=== PATIENT | female | born 1960 | race Caucasian/White ===

== ENCOUNTER 2020-09-06 09:43 | Outpatient (REF) | payer OTHER, SELFPAY ==
[2020-09-11 15:57] LABS: HPV mRNA E6/E7 Not Detected (Not Detected)
== END 2020-09-06 09:44 | disposition home or self-care (01) ==
LOC: HO.LAB 09:43
PROVIDERS: PCP Internal Medicine; Referring Provider Internal Medicine; Visit Provider Obstetrics & Gynecology
DX: Z01.419 Encounter for gynecological examination (general) (routine) without abnormal findings (principal); N95.2 Postmenopausal atrophic vaginitis
CPT/HCPCS: 87624; 88142

== ENCOUNTER → 2020-09-18 14:36 | Outpatient (BNVA) | payer OTHER, SELFPAY | PROVIDERS: Visit Provider Obstetrics & Gynecology | DX: Z76.89 Persons encountering health services in other specified circumstances (principal) ==

== ENCOUNTER 2021-03-10 12:07 | Outpatient (REF) | payer OTHER, SELFPAY ==
--- NOTE | ~2021-03-10 | XR_ITS ---
EXAMINATION: XR FOOT, RIGHT CLINICAL INFORMATION: Close nondisplaced fracture phalanx of great great toe COMPARISON: None TECHNIQUE: AP, lateral, and oblique views of the right foot. FINDINGS: The bones and soft tissues are normal. No fracture. Alignment is anatomic. Joint spaces are maintained. XR/XR foot RT min 3V IMPRESSION: Unremarkable right foot exam.
== END 2021-03-10 12:08 | disposition home or self-care (01) ==
LOC: HO.XRAY 12:07
PROVIDERS: PCP Internal Medicine; Visit Provider Internal Medicine
DX: S92.404A Nondisplaced unspecified fracture of right great toe, initial encounter for closed fracture (principal); X58.XXXA Exposure to other specified factors, initial encounter; Y93.9 Activity, unspecified; Y92.9 Unspecified place or not applicable; Y99.8 Other external cause status
CPT/HCPCS: 73630

== ENCOUNTER 2021-05-27 10:30 | Outpatient (REF) | payer OTHER, SELFPAY ==
[2021-05-27 10:34] LABS: MANUAL DIFF FLAG NO
[2021-05-27 11:19] LABS: Basophils Absolute Auto 0.1 X10*3/uL (0.0-0.2); Basophils Percent Auto 0.6 % (0-2); Eosinophils Absolute Auto 0.1 X10*3/uL (0.0-0.4); Eosinophils Percent Auto 1.7 % (0-4); Hematocrit 45.4 % (37-47); Imm Gran Abs Auto 0.02 X10*3/uL (0.00-0.03); Imm Gran Pct Auto 0.2 % (0.0-0.4); Lymphocytes Absolute Auto 1.7 X10*3/uL (1.2-4.9); Lymphocytes Percent Auto 20.1 % (20-40); Mean Corpuscular Hemoglobin 29.6 pg (27.0-33.0); Mean Corpuscular Volume 89.7 fL (80-98); Mean Platelet Volume 9.9 fL (9.4-12.3); Monocytes Absolute Auto 0.7 X10*3/uL (0.1-1.2); Monocytes Percent Auto 7.7 % (2-11); Neutrophils Absolute Auto 5.9 X10*3/uL (2.0-8.3); Neutrophils Percent Auto 69.7 % (45-73); Platelet Count 231 X10*3/uL (160-400); Red Blood Count 5.06 X10*6/uL (4.20-5.50); Red Cell Distribution Width 13.1 % (11.0-16.0); White Blood Count 8.5 X10*3/uL (4.8-10.8)
[2021-05-27 11:33] LABS: Glucose Urine UA NEG (NEG); Leukocyte Esterase Urine NEG (NEG); Nitrite Urine NEG (NEG); Urine Blood NEG (NEG); Urine Ketones NEG (NEG); Urine Protein NEG (NEG-TRACE)
[2021-05-27 11:46] LABS: Estimated Average Glucose 114 mg/dL; Hemoglobin A1c % 5.6 %
[2021-05-27 11:51] LABS: Appearance Urine CLEAR; Color Urine YELLOW
[2021-05-27 12:14] LABS: Alanine Aminotransferase 13 U/L (0-31); Albumin Level 4.5 g/dL (3.5-5.0); Alkaline Phosphatase 97 U/L (39-117); Anion Gap 13 (12-20); Aspartate Amino Transferase 21 U/L (5-31); Bilirubin Total 0.7 mg/dL (0.0-1.0); Blood Urea Nitrogen 13 mg/dL (9-16); Calcium 9.9 mg/dL (8.4-10.2); Carbon Dioxide 28 mmol/L (22-29); Chloride 108 mmol/L (96-108); Cholesterol 260 mg/dL; Estimated Glomerular Filt Rate 54; Glucose Fasting 94 mg/dL (60-99); HDL Cholesterol 79 mg/dL; LDL Cholesterol Calculated 166 mg/dl; Potassium 4.4 mmol/L (3.3-5.1); Sodium 145 mmol/L (135-145); Total Protein 7.3 g/dL (6.5-8.0); Triglycerides 75 mg/dL
== END 2021-05-27 10:31 | disposition home or self-care (01) ==
LOC: HO.LNP 10:30
PROVIDERS: Visit Provider Internal Medicine
DX: Z00.00 Encounter for general adult medical examination without abnormal findings (principal); I10 Essential (primary) hypertension; E05.00 Thyrotoxicosis with diffuse goiter without thyrotoxic crisis or storm; E78.2 Mixed hyperlipidemia; R73.09 Other abnormal glucose
CPT/HCPCS: 80053; 80061; 81003; 83036; 85025

== ENCOUNTER → 2021-09-23 10:00 | Outpatient (BNVA) | payer OTHER, SELFPAY | PROVIDERS: PCP Internal Medicine; Visit Provider Obstetrics & Gynecology ==

== ENCOUNTER 2022-06-29 11:28 | Outpatient (REF) | payer OTHER, SELFPAY ==
[2022-06-29 11:33] LABS: MANUAL DIFF FLAG NO
[2022-06-29 12:18] LABS: Basophils Absolute Auto 0.1 X10*3/uL (0.0-0.2); Basophils Percent Auto 0.7 % (0-2); Eosinophils Absolute Auto 0.2 X10*3/uL (0.0-0.4); Eosinophils Percent Auto 1.9 % (0-4); Hematocrit 45.9 % (37.0-47.0); Imm Gran Abs Auto 0.02 X10*3/uL (0.00-0.03); Imm Gran Pct Auto 0.2 % (0.0-0.4); Lymphocytes Absolute Auto 1.7 X10*3/uL (1.2-4.9); Lymphocytes Percent Auto 19.9 % (20-40); Mean Corpuscular HGB Conc 32.7 g/dl (31.0-35.0); Mean Corpuscular Hemoglobin 29.2 pg (27.0-33.0); Mean Corpuscular Volume 89.3 fL (80.0-98.0); Mean Platelet Volume 9.7 fL (9.4-12.3); Monocytes Absolute Auto 0.6 X10*3/uL (0.1-1.2); Monocytes Percent Auto 7.1 % (2-11); Neutrophils Percent Auto 70.2 % (45-73); Platelet Count 220 X10*3/uL (160-400); Red Blood Count 5.14 X10*6/uL (4.20-5.50); Red Cell Distribution Width 12.7 % (11.0-16.0); White Blood Count 8.6 X10*3/uL (4.8-10.8)
[2022-06-29 12:21] LABS: Appearance Urine Clear; Color Urine Yellow; Glucose Urine UA Negative (Negative); Leukocyte Esterase Urine Negative (Negative); Nitrite Urine Negative (Negative); PH 6.5 (5.0-9.0); Specific Gravity - Urine 1.015 (1.005-1.025); Urine Blood Negative (Negative); Urine Ketones Negative (Negative); Urine Protein Negative (Neg-Trace)
[2022-06-29 12:28] LABS: Bacteria Urine None Seen (None Seen); Hyaline Casts Urine 0-2 /LPF (0-2); RBC Urine 0-2 /HPF (0-2); Squamous Epithelial Cell Urine 0-2 /HPF (0-2); WBC Urine 0-5 /HPF (0-5)
[2022-06-29 12:33] LABS: Alanine Aminotransferase 17 U/L (0-31); Albumin Level 4.4 g/dL (3.5-5.0); Alkaline Phosphatase 77 U/L (39-117); Anion Gap 16 (12-20); Aspartate Amino Transferase 23 U/L (5-31); Bilirubin Total 0.6 mg/dL (0.0-1.0); Blood Urea Nitrogen 14 mg/dL (9-16); Calcium 9.4 mg/dL (8.4-10.2); Carbon Dioxide 26 mmol/L (22-29); Chloride 106 mmol/L (96-108); Cholesterol 252 mg/dL; Estimated Glomerular Filt Rate > 60; Glucose Fasting 92 mg/dL (60-99); HDL Cholesterol 77 mg/dL; LDL Cholesterol Calculated 154 mg/dl; Potassium 3.8 mmol/L (3.3-5.1); Sodium 144 mmol/L (135-145); Total Protein 7.4 g/dL (6.5-8.0); Triglycerides 108 mg/dL
[2022-06-29 12:34] LABS: Estimated Average Glucose 111 mg/dL; Hemoglobin A1c % 5.5 %
[2022-06-29 12:44] LABS: Creatinine Urine 101.09 mg/dL; Microalbum/Creatinine Ratio Ur 19.7 ug/mg cr
[2022-06-29 12:56] LABS: TSH reflex Free T4 1.33 uIU/mL (0.32-4.0)
== END 2022-06-29 11:29 | disposition home or self-care (01) ==
LOC: HO.LNP 11:28
PROVIDERS: Visit Provider Internal Medicine
DX: Z00.00 Encounter for general adult medical examination without abnormal findings (principal); I10 Essential (primary) hypertension; E05.00 Thyrotoxicosis with diffuse goiter without thyrotoxic crisis or storm; E78.2 Mixed hyperlipidemia; R73.9 Hyperglycemia, unspecified
CPT/HCPCS: 80053; 80061; 81001; 82043; 83036; 84443; 85025

== ENCOUNTER 2022-10-02 10:16 | Outpatient (REF) | payer OTHER, SELFPAY ==
[2022-10-02 14:22] LABS: MANUAL DIFF FLAG NO
[2022-10-02 14:41] LABS: Basophils Absolute Auto 0.1 X10*3/uL (0.0-0.2); Basophils Percent Auto 0.7 % (0-2); Eosinophils Absolute Auto 0.1 X10*3/uL (0.0-0.4); Eosinophils Percent Auto 1.6 % (0-4); Hematocrit 45.2 % (37.0-47.0); Imm Gran Abs Auto 0.01 X10*3/uL (0.00-0.03); Imm Gran Pct Auto 0.1 % (0.0-0.4); Lymphocytes Percent Auto 28.5 % (20-40); Mean Corpuscular HGB Conc 33.2 g/dl (31.0-35.0); Mean Corpuscular Hemoglobin 29.7 pg (27.0-33.0); Mean Corpuscular Volume 89.5 fL (80.0-98.0); Mean Platelet Volume 9.9 fL (9.4-12.3); Monocytes Absolute Auto 0.7 X10*3/uL (0.1-1.2); Monocytes Percent Auto 9.4 % (2-11); Neutrophils Absolute Auto 4.2 x10*3/uL (2.0-8.3); Neutrophils Percent Auto 59.7 % (45-73); Platelet Count 245 X10*3/uL (160-400); Red Blood Count 5.05 X10*6/uL (4.20-5.50); Red Cell Distribution Width 12.8 % (11.0-16.0); White Blood Count 7.1 X10*3/uL (4.8-10.8)
[2022-10-02 15:11] LABS: Alanine Aminotransferase 14 U/L (0-31); Albumin Level 4.2 g/dL (3.5-5.0); Alkaline Phosphatase 88 U/L (39-117); Aspartate Amino Transferase 19 U/L (5-31); Bilirubin Direct < 0.2 mg/dL (0.0-0.5); Bilirubin Total 0.4 mg/dL (0.0-1.0); Thyroid Stimulating Hormone 0.68 uIU/mL (0.32-4.0); Total Protein 6.8 g/dL (6.5-8.0)
[2022-10-04 06:39] LABS: Triiodothyronine T3 Free 3.4 pg/mL (2.3-4.2)
[2022-10-07 14:48] LABS: Thyrotropin Receptor Antibody <1.00 IU/L (<=2.00)
== END 2022-10-02 10:17 | disposition home or self-care (01) ==
LOC: CF 10:16
PROVIDERS: PCP Internal Medicine; Visit Provider Internal Medicine Endocrinology, Diabetes & Metabolism
DX: E05.90 Thyrotoxicosis, unspecified without thyrotoxic crisis or storm (principal); Z79.899 Other long term (current) drug therapy
CPT/HCPCS: 36415; 80076; 83520; 84439; 84443; 84481; 85025; 99212

== ENCOUNTER 2022-11-10 08:50 | Outpatient (REF) | payer OTHER, SELFPAY ==
[2022-11-10 11:14] LABS: Free T4 (Free Thyroxine) 0.86 ng/dL (0.71-1.85); Thyroid Stimulating Hormone 0.71 uIU/mL (0.32-4.0)
[2022-11-11 09:52] LABS: Triiodothyronine T3 Free 3.3 pg/mL (2.3-4.2)
== END 2022-11-10 08:51 | disposition home or self-care (01) ==
LOC: HO.10HDL 08:50
PROVIDERS: Visit Provider Internal Medicine Endocrinology, Diabetes & Metabolism
DX: E05.90 Thyrotoxicosis, unspecified without thyrotoxic crisis or storm (principal)
CPT/HCPCS: 36415; 84439; 84443; 84481

== ENCOUNTER 2022-11-13 10:10 | Outpatient (REF) | payer OTHER, SELFPAY ==
--- NOTE | ~2022-11-13 | FL_ITS ---
EXAMINATION: XR FLUOROSCOPY UPPER GI WITH AIR CLINICAL INFORMATION: Esophageal dysphagia. Schatzki's ring. COMPARISON: None. TECHNIQUE: Air-contrast upper GI examination. FINDINGS: There is normal apposition of the vocal cords while saying E. There is normal elevation of the soft palate while saying candy. Patient swallowed thin and thick barium and half-inch diameter barium tablet without difficulty. No nasopharyngeal reflux or tracheal aspiration identified. No cricopharyngeal hypertrophy or Zenker's diverticulum. There is normal esophageal motility without evidence of persistent stricture or ulcerations/erosions. No hiatal hernia was identified. No gastroesophageal reflux was elicited including with water siphon test. The stomach demonstrated normal distensibility without evidence of abnormal mass or ulceration. There was no delay in gastric emptying. The duodenal bulb and sweep appeared unremarkable other than for a small duodenal diverticulum off the 3rd portion of the duodenum. FLUOROSCOPY TIME: 2.2 minutes. DOSE AREA PRODUCT: 7.358 Gy-cm2 (fleming-centimeter squared). DLP: 42.727 mGy-cm. FL/FL upper GI w air IMPRESSION: 1. Duodenal diverticulum. 2. Otherwise unremarkable air-contrast upper GI examination.
== END 2022-11-13 10:11 | disposition home or self-care (01) ==
LOC: HO.XRAY 10:10
PROVIDERS: PCP Internal Medicine; Visit Provider Internal Medicine
DX: R13.19 Other dysphagia (principal); K22.2 Esophageal obstruction
CPT/HCPCS: 74246

== ENCOUNTER → 2023-01-28 16:32 | Outpatient (BNVA) | payer OTHER, SELFPAY | PROVIDERS: PCP Internal Medicine; Visit Provider Internal Medicine Endocrinology, Diabetes & Metabolism | DX: E05.00 Thyrotoxicosis with diffuse goiter without thyrotoxic crisis or storm (principal); Z79.899 Other long term (current) drug therapy | CPT/HCPCS: 99212 ==

== ENCOUNTER 2023-07-01 11:18 | Outpatient (REF) | payer OTHER, SELFPAY ==
[2023-07-01 11:23] LABS: MANUAL DIFF FLAG NO
[2023-07-01 11:33] LABS: Appearance Urine Clear; Color Urine Yellow; Glucose Urine UA Negative (Negative); Leukocyte Esterase Urine Negative (Negative); Nitrite Urine Negative (Negative); Specific Gravity - Urine 1.015 (1.005-1.025); Urine Blood Negative (Negative); Urine Ketones Negative (Negative); Urine Protein Negative (Neg-Trace)
[2023-07-01 11:34] LABS: Basophils Percent Auto 0.5 % (0-2); Eosinophils Absolute Auto 0.2 X10*3/uL (0.0-0.4); Eosinophils Percent Auto 3.5 % (0-4); Imm Gran Abs Auto 0.01 X10*3/uL (0.00-0.03); Imm Gran Pct Auto 0.2 % (0.0-0.4); Lymphocytes Absolute Auto 1.5 X10*3/uL (1.2-4.9); Lymphocytes Percent Auto 26.3 % (20-40); Mean Corpuscular HGB Conc 33.3 g/dl (31.0-35.0); Mean Corpuscular Hemoglobin 29.6 pg (27.0-33.0); Mean Corpuscular Volume 88.9 fL (80.0-98.0); Mean Platelet Volume 10.2 fL (9.4-12.3); Monocytes Absolute Auto 0.6 X10*3/uL (0.1-1.2); Monocytes Percent Auto 9.7 % (2-11); Neutrophils Absolute Auto 3.5 x10*3/uL (2.0-8.3); Neutrophils Percent Auto 59.8 % (45-73); Platelet Count 225 X10*3/uL (160-400); Red Blood Count 5.06 X10*6/uL (4.20-5.50); Red Cell Distribution Width 13.1 % (11.0-16.0); White Blood Count 5.8 X10*3/uL (4.8-10.8)
[2023-07-01 11:35] LABS: Bacteria Urine None Seen (None Seen); Hyaline Casts Urine 0-2 /LPF (0-2); RBC Urine 0-2 /HPF (0-2); Squamous Epithelial Cell Urine 0-2 /HPF (0-2); WBC Urine 0-5 /HPF (0-5)
[2023-07-01 11:55] LABS: Alanine Aminotransferase 13 U/L (0-31); Albumin Level 4.1 g/dL (3.5-5.0); Alkaline Phosphatase 79 U/L (39-117); Anion Gap 13 (12-20); Aspartate Amino Transferase 23 U/L (5-31); Bilirubin Total 0.7 mg/dL (0.0-1.0); Blood Urea Nitrogen 13 mg/dL (9-16); Calcium 9.8 mg/dL (8.4-10.2); Carbon Dioxide 29 mmol/L (22-29); Chloride 107 mmol/L (96-108); Cholesterol 225 mg/dL (<200); Estimated Glomerular Filt Rate > 60; Glucose Fasting 84 mg/dL (60-99); HDL Cholesterol 80 mg/dL (>40); LDL Cholesterol Calculated 130 mg/dL (<100); Potassium 4.4 mmol/L (3.3-5.1); Sodium 145 mmol/L (135-145); Total Protein 7.1 g/dL (6.5-8.0); Triglycerides 76 mg/dL (<150)
[2023-07-01 12:09] LABS: TSH reflex Free T4 0.07 uIU/mL (0.32-4.0)
[2023-07-01 12:12] LABS: Estimated Average Glucose 105 mg/dL; Hemoglobin A1c % 5.3 % (<6.0)
== END 2023-07-01 11:19 | disposition home or self-care (01) ==
LOC: HO.LNP 11:18
PROVIDERS: Visit Provider Internal Medicine
DX: Z00.00 Encounter for general adult medical examination without abnormal findings (principal); I10 Essential (primary) hypertension; E05.00 Thyrotoxicosis with diffuse goiter without thyrotoxic crisis or storm; E78.2 Mixed hyperlipidemia; R73.9 Hyperglycemia, unspecified
CPT/HCPCS: 80053; 80061; 81001; 83036; 84439; 84443; 85025

== ENCOUNTER 2023-08-17 09:27 | Outpatient (REF) | payer MEDICARE, SELFPAY ==
[2023-08-17 10:40] LABS: MANUAL DIFF FLAG NO
[2023-08-17 10:47] LABS: Basophils Absolute Auto 0.1 X10*3/uL (0.0-0.2); Basophils Percent Auto 1.1 % (0-2); Eosinophils Absolute Auto 0.1 X10*3/uL (0.0-0.4); Eosinophils Percent Auto 1.9 % (0-4); Hematocrit 47.2 % (37.0-47.0); Hemoglobin 15.5 g/dl (12.0-16.0); Imm Gran Abs Auto 0.01 X10*3/uL (0.00-0.03); Imm Gran Pct Auto 0.2 % (0.0-0.4); Lymphocytes Absolute Auto 1.8 X10*3/uL (1.2-4.9); Lymphocytes Percent Auto 28.1 % (20-40); Mean Corpuscular HGB Conc 32.8 g/dl (31.0-35.0); Mean Corpuscular Volume 88.2 fL (80.0-98.0); Mean Platelet Volume 9.5 fL (9.4-12.3); Monocytes Absolute Auto 0.5 X10*3/uL (0.1-1.2); Monocytes Percent Auto 8.5 % (2-11); Neutrophils Absolute Auto 3.8 x10*3/uL (2.0-8.3); Neutrophils Percent Auto 60.2 % (45-73); Platelet Count 242 X10*3/uL (160-400); Red Blood Count 5.35 X10*6/uL (4.20-5.50); Red Cell Distribution Width 12.6 % (11.0-16.0); White Blood Count 6.3 X10*3/uL (4.8-10.8)
[2023-08-17 11:02] LABS: Alanine Aminotransferase 16 U/L (0-31); Albumin Level 4.4 g/dL (3.5-5.0); Alkaline Phosphatase 82 U/L (39-117); Aspartate Amino Transferase 20 U/L (5-31); Bilirubin Direct 0.2 mg/dL (0.0-0.5); Bilirubin Total 0.5 mg/dL (0.0-1.0); Total Protein 7.6 g/dL (6.5-8.0)
[2023-08-17 11:20] LABS: Free T4 (Free Thyroxine) 0.95 ng/dL (0.71-1.85); Thyroid Stimulating Hormone 0.02 uIU/mL (0.32-4.0)
[2023-08-19 01:59] LABS: Triiodothyronine T3 Free 3.7 pg/mL (2.3-4.2)
== END 2023-08-17 09:28 | disposition home or self-care (01) ==
LOC: HO.10HDL 09:27
PROVIDERS: Visit Provider Internal Medicine Endocrinology, Diabetes & Metabolism
DX: E05.90 Thyrotoxicosis, unspecified without thyrotoxic crisis or storm (principal)
CPT/HCPCS: 36415; 80076; 84439; 84443; 84481; 85025

== ENCOUNTER 2023-09-28 07:34 | Outpatient (REF) | payer MEDICARE, SELFPAY ==
[2023-09-28 10:37] LABS: MANUAL DIFF FLAG NO
[2023-09-28 10:41] LABS: Basophils Percent Auto 0.6 % (0-2); Eosinophils Absolute Auto 0.2 X10*3/uL (0.0-0.4); Eosinophils Percent Auto 2.4 % (0-4); Hematocrit 45.2 % (37.0-47.0); Hemoglobin 14.7 g/dl (12.0-16.0); Imm Gran Abs Auto 0.02 X10*3/uL (0.00-0.03); Imm Gran Pct Auto 0.3 % (0.0-0.4); Lymphocytes Absolute Auto 1.9 X10*3/uL (1.2-4.9); Lymphocytes Percent Auto 29.4 % (20-40); Mean Corpuscular HGB Conc 32.5 g/dl (31.0-35.0); Mean Corpuscular Hemoglobin 28.9 pg (27.0-33.0); Mean Platelet Volume 9.9 fL (9.4-12.3); Monocytes Absolute Auto 0.5 X10*3/uL (0.1-1.2); Monocytes Percent Auto 8.2 % (2-11); Neutrophils Absolute Auto 3.7 x10*3/uL (2.0-8.3); Neutrophils Percent Auto 59.1 % (45-73); Platelet Count 247 X10*3/uL (160-400); Red Blood Count 5.08 X10*6/uL (4.20-5.50); Red Cell Distribution Width 12.9 % (11.0-16.0); White Blood Count 6.3 X10*3/uL (4.8-10.8)
[2023-09-28 11:02] LABS: Alanine Aminotransferase 17 U/L (0-31); Albumin Level 4.1 g/dL (3.5-5.0); Alkaline Phosphatase 84 U/L (39-117); Aspartate Amino Transferase 27 U/L (5-31); Bilirubin Direct 0.2 mg/dL (0.0-0.5); Bilirubin Total 0.4 mg/dL (0.0-1.0)
[2023-09-28 11:21] LABS: Free T4 (Free Thyroxine) 0.92 ng/dL (0.71-1.85); Thyroid Stimulating Hormone 0.07 uIU/mL (0.32-4.0)
[2023-09-29 10:19] LABS: Triiodothyronine T3 Free 3.6 pg/mL (2.3-4.2)
== END 2023-09-28 07:35 | disposition home or self-care (01) ==
LOC: HO.10HDL 07:34
PROVIDERS: Visit Provider Internal Medicine Endocrinology, Diabetes & Metabolism
DX: E05.90 Thyrotoxicosis, unspecified without thyrotoxic crisis or storm (principal)
CPT/HCPCS: 36415; 80076; 84439; 84443; 84481; 85025

== ENCOUNTER 2023-11-08 11:13 | Outpatient (REF) | payer MEDICARE, SELFPAY ==
[2023-11-08 13:11] LABS: MANUAL DIFF FLAG NO
[2023-11-08 13:19] LABS: Basophils Percent Auto 0.6 % (0-2); Eosinophils Absolute Auto 0.1 X10*3/uL (0.0-0.4); Eosinophils Percent Auto 1.5 % (0-4); Hematocrit 44.9 % (37.0-47.0); Hemoglobin 14.9 g/dl (12.0-16.0); Imm Gran Abs Auto 0.01 X10*3/uL (0.00-0.03); Imm Gran Pct Auto 0.1 % (0.0-0.4); Lymphocytes Absolute Auto 1.9 X10*3/uL (1.2-4.9); Lymphocytes Percent Auto 27.6 % (20-40); Mean Corpuscular HGB Conc 33.2 g/dl (31.0-35.0); Mean Corpuscular Hemoglobin 29.3 pg (27.0-33.0); Mean Corpuscular Volume 88.4 fL (80.0-98.0); Mean Platelet Volume 10.2 fL (9.4-12.3); Monocytes Absolute Auto 0.6 X10*3/uL (0.1-1.2); Monocytes Percent Auto 8.3 % (2-11); Neutrophils Absolute Auto 4.2 x10*3/uL (2.0-8.3); Neutrophils Percent Auto 61.9 % (45-73); Platelet Count 233 X10*3/uL (160-400); Red Blood Count 5.08 X10*6/uL (4.20-5.50); Red Cell Distribution Width 12.8 % (11.0-16.0); White Blood Count 6.8 X10*3/uL (4.8-10.8)
[2023-11-08 14:55] LABS: Alanine Aminotransferase 14 U/L (0-31); Albumin Level 4.1 g/dL (3.5-5.0); Alkaline Phosphatase 86 U/L (39-117); Aspartate Amino Transferase 18 U/L (5-31); Bilirubin Direct 0.1 mg/dL (0.0-0.5); Bilirubin Total 0.4 mg/dL (0.0-1.0)
[2023-11-08 15:13] LABS: Free T4 (Free Thyroxine) 1.21 ng/dL (0.71-1.85); Thyroid Stimulating Hormone < 0.01 uIU/mL (0.32-4.0)
[2023-11-09 10:58] LABS: Triiodothyronine T3 Free 4.9 pg/mL (2.3-4.2)
== END 2023-11-08 11:14 | disposition home or self-care (01) ==
LOC: HO.10HDL 11:13
PROVIDERS: Visit Provider Internal Medicine Endocrinology, Diabetes & Metabolism
DX: E05.90 Thyrotoxicosis, unspecified without thyrotoxic crisis or storm (principal)
CPT/HCPCS: 36415; 80076; 84439; 84443; 84481; 85025

== ENCOUNTER 2023-11-11 15:29 | Outpatient (AMB) | payer MEDICARE, SELFPAY ==
[2023-11-11 15:31] VITALS: BP 158/98; PULSE 83; BMI 25.0
--- NOTE | 2023-11-11 15:31 | MHC.OFFVIS ---
Intake Vital Signs 11/11/23 15:31 Height 5 ft Weight 127 lb 13.89 oz BMI 25.0 BP 158/98 H Blood Pressure Location Lt brachial Position Sitting Pulse 83 Pulse Source Pulse Oximeter Intake Visit Reasons: graves disease Intake Note: Patient present today for Grave's disease follow up visit. Sales Floor Manager Required: No Accompanied by: Self / Same As Patient Allergies cephalexin Allergy (Unknown, Verified 11/11/23 15:37) itchy doxycycline [DOXYCYCLINE] Allergy (Unknown, Verified 11/11/23 15:37) ?RXN- TESTED + erythromycin base [ERYTHROMYCIN BASE] Allergy (Unknown, Verified 11/11/23 15:37) ITCHY HIVES levofloxacin [From LEVAQUIN] Allergy (Unknown, Verified 11/11/23 15:37) ITCH HIVES penicillin V Allergy (Unknown, Verified 11/11/23 15:37) unknown Penicillins [PENICILLINS] Allergy (Unknown, Verified 11/11/23 15:37) + WITH ALLERGY TESTING strawberry [STRAWBERRY] Allergy (Unknown, Verified 11/11/23 15:37) ITCHY - HIVES Sulfa (Sulfonamide Antibiotics) [SULFA(SULFONAMIDE ANTIBIOTICS)] Allergy (Unknown, Verified 11/11/23 15:37) RASH tetracycline [TETRACYCLINE] Allergy (Unknown, Verified 11/11/23 15:37) TESTED + WITH ALLERGY WORK - UP Doxycycline (Rosacea) Allergy (Unknown, Uncoded 01/28/23 16:42) itchy Erythromycin Allergy (Unknown, Uncoded 01/28/23 16:42) itchy Medication List - Last Reconciled 11/11/23 by Dada Simmons MD methimazole 5 mg PO DAILY HPI HPI Comments History of Present Illness Details This 63-year-old white female previously seen by myself for hyperthyroidism due to Graves disease. Currently on methimazole 5 mg q.d.Complains of dry skin. C/O hair loss PFSH Medical History (Updated 10/02/22 @ 10:28 by Dada Simmons MD) Hyperthyroidism Light sensitivity Migraine headache Graves disease Surgical History Hx of appendectomy Tubal ligation status [place] teeth extracted Family History Sister Endometrial cancer Mother Lung cancer Social History Household Members: Spouse Housing: House Alcohol intake: never Patient Tobacco Use Status: Never used Tobacco Current occupational status: unemployed Sexual orientation: Straight/Heterosexual Gender identity: Female Female Reproductive History Menstrual Age of Menarche: 9 Physical Exam Vital Signs: Last Vital Signs Pulse 83 11/11/23 15:31 BP 158/98 H 11/11/23 15:31 BMI result Body Mass Index 25.0 Const Other: Thyroid gland is normal size weighs about 15 g . There are no thyroid nodules palpated. Reflexes 2+ DTR Assessment & Plan Assessment & Plan (1) Hyperthyroidism: Code(s): - Thyrotoxicosis, unspecified without thyrotoxic crisis or storm Plan: This is a 63-year-old female with a history of mild hyperthyroidism possibly due to Graves disease. She appears to be clinically euthyroid On 5 mg of methimazole but biochemically hyperthyroid with elevated T3 and suppressed TSH Plan is to increase the methimazole to 10 mg. Will check thyroid function studies, liver panel and CBC in 4 weeks . We discussed options for therapy including continuation of methimazole versus radioactive iodine versus surgery and the risks and benefits of each the patient is wanting to stay on the methimazole for now Orders: Orders Free T4 (Free Thyroxine) 4 Weeks E0. - Thyrotoxicosis, unspecified without thyrotoxic crisis or storm Thyroid Stimulating Hormone 4 Weeks E0.90 - Thyrotoxicosis, unspecified without thyrotoxic crisis or storm Triiodothyronine T3 Free 4 Weeks E0.90 - Thyrotoxicosis, unspecified without thyrotoxic crisis or storm Complete Blood Count Auto Diff 4 Weeks E0. - Thyrotoxicosis, unspecified without thyrotoxic crisis or storm Liver Panel 4 Weeks E05.90 - Thyrotoxicosis, unspecified without thyrotoxic crisis or storm Medications: Changed From methimazole 5 mg PO DAILY 30 tabs 5RF To methimazole 10 mg (2 x 5 mg) PO DAILY 60 tabs 5RF Coding Level of Care Code Est Pt Level 3 (63747) Diagnoses Hyperthyroidism E0
== END 2023-11-11 16:05 | disposition home or self-care (01) ==
PROVIDERS: PCP Internal Medicine; Visit Provider Internal Medicine Endocrinology, Diabetes & Metabolism
DX: E05.90 Thyrotoxicosis, unspecified without thyrotoxic crisis or storm (principal)
CPT/HCPCS: 99213

== ENCOUNTER → 2023-11-11 15:29 | Outpatient (BNVA) | payer MEDICARE, SELFPAY | PROVIDERS: PCP Internal Medicine; Visit Provider Internal Medicine Endocrinology, Diabetes & Metabolism | DX: E05.90 Thyrotoxicosis, unspecified without thyrotoxic crisis or storm (principal) | CPT/HCPCS: 99212 ==

== ENCOUNTER 2023-12-21 09:51 | Outpatient (REF) | payer MEDICARE, SELFPAY ==
[2023-12-21 11:19] LABS: MANUAL DIFF FLAG NO
[2023-12-21 11:22] LABS: Basophils Percent Auto 0.5 % (0-2); Eosinophils Absolute Auto 0.2 X10*3/uL (0.0-0.4); Eosinophils Percent Auto 3.3 % (0-4); Hematocrit 44.6 % (37.0-47.0); Hemoglobin 14.8 g/dl (12.0-16.0); Imm Gran Abs Auto 0.01 X10*3/uL (0.00-0.03); Imm Gran Pct Auto 0.2 % (0.0-0.4); Lymphocytes Absolute Auto 1.7 X10*3/uL (1.2-4.9); Lymphocytes Percent Auto 27.7 % (20-40); Mean Corpuscular HGB Conc 33.2 g/dl (31.0-35.0); Mean Corpuscular Hemoglobin 29.2 pg (27.0-33.0); Mean Platelet Volume 9.4 fL (9.4-12.3); Monocytes Absolute Auto 0.6 X10*3/uL (0.1-1.2); Monocytes Percent Auto 9.4 % (2-11); Neutrophils Absolute Auto 3.6 x10*3/uL (2.0-8.3); Neutrophils Percent Auto 58.9 % (45-73); Platelet Count 213 X10*3/uL (160-400); Red Blood Count 5.07 X10*6/uL (4.20-5.50); Red Cell Distribution Width 12.9 % (11.0-16.0); White Blood Count 6.1 X10*3/uL (4.8-10.8)
[2023-12-21 12:29] LABS: Alanine Aminotransferase 11 U/L (0-31); Alkaline Phosphatase 86 U/L (39-117); Aspartate Amino Transferase 16 U/L (5-31); Bilirubin Direct 0.2 mg/dL (0.0-0.5); Bilirubin Total 0.5 mg/dL (0.0-1.0); Free T4 (Free Thyroxine) 0.96 ng/dL (0.71-1.85); Thyroid Stimulating Hormone < 0.01 uIU/mL (0.32-4.0); Total Protein 6.8 g/dL (6.5-8.0)
== END 2023-12-21 09:52 | disposition home or self-care (01) ==
LOC: HO.10HDL 09:51
PROVIDERS: Visit Provider Internal Medicine Endocrinology, Diabetes & Metabolism
DX: E05.90 Thyrotoxicosis, unspecified without thyrotoxic crisis or storm (principal)
CPT/HCPCS: 36415; 80076; 84439; 84443; 84481; 85025

== ENCOUNTER 2024-02-07 11:09 | Outpatient (REF) | payer MEDICARE, SELFPAY ==
[2024-02-07 11:32] LABS: MANUAL DIFF FLAG NO
[2024-02-07 11:52] LABS: Basophils Absolute Auto 0.1 X10*3/uL (0.0-0.2); Basophils Percent Auto 0.9 % (0-2); Eosinophils Absolute Auto 0.1 X10*3/uL (0.0-0.4); Eosinophils Percent Auto 2.1 % (0-4); Hematocrit 43.4 % (37.0-47.0); Hemoglobin 14.7 g/dl (12.0-16.0); Imm Gran Abs Auto 0.03 X10*3/uL (0.00-0.03); Imm Gran Pct Auto 0.4 % (0.0-0.4); Lymphocytes Absolute Auto 1.8 X10*3/uL (1.2-4.9); Mean Corpuscular HGB Conc 33.9 g/dl (31.0-35.0); Mean Corpuscular Hemoglobin 29.3 pg (27.0-33.0); Mean Corpuscular Volume 86.6 fL (80.0-98.0); Mean Platelet Volume 9.3 fL (9.4-12.3); Monocytes Absolute Auto 0.5 X10*3/uL (0.1-1.2); Monocytes Percent Auto 7.4 % (2-11); Neutrophils Absolute Auto 4.3 x10*3/uL (2.0-8.3); Neutrophils Percent Auto 63.2 % (45-73); Platelet Count 267 X10*3/uL (160-400); Red Blood Count 5.01 X10*6/uL (4.20-5.50); Red Cell Distribution Width 12.8 % (11.0-16.0); White Blood Count 6.8 X10*3/uL (4.8-10.8)
[2024-02-07 12:32] LABS: Alanine Aminotransferase 13 U/L (0-31); Albumin Level 3.9 g/dL (3.5-5.0); Alkaline Phosphatase 88 U/L (39-117); Aspartate Amino Transferase 17 U/L (5-31); Bilirubin Direct 0.1 mg/dL (0.0-0.5); Bilirubin Total 0.3 mg/dL (0.0-1.0); Total Protein 6.8 g/dL (6.5-8.0)
[2024-02-07 12:55] LABS: Thyroid Stimulating Hormone 0.63 uIU/mL (0.32-4.0)
[2024-02-07 13:12] LABS: Free T4 (Free Thyroxine) 0.68 ng/dL (0.71-1.85)
[2024-02-08 08:44] LABS: Triiodothyronine T3 Free 2.7 pg/mL (2.3-4.2)
== END 2024-02-07 11:10 | disposition home or self-care (01) ==
LOC: HO.10HDL 11:09
PROVIDERS: Visit Provider Internal Medicine Endocrinology, Diabetes & Metabolism
DX: E05.90 Thyrotoxicosis, unspecified without thyrotoxic crisis or storm (principal)
CPT/HCPCS: 36415; 80076; 84439; 84443; 84481; 85025

== ENCOUNTER 2024-02-10 15:44 | Outpatient (AMB) | payer MEDICARE, SELFPAY ==
[2024-02-10 15:46] VITALS: BP 174/98; PULSE 87; BMI 24.8
--- NOTE | 2024-02-10 15:46 | A.OFFVIS_ITS ---
Vital Signs 02/10/24 15:46 Height 5 ft Weight 127 lb 3.307 oz BMI 24.8 BP 174/98 H Blood Pressure Location Lt brachial Position Sitting Pulse 87 Pulse Source Pulse Oximeter Intake Visit Reasons: f/u hyperthyroidism-confirmed Intake Note: Patient present today for Hyperthyroidism follow up visit. Email Operations Manager Required: No Accompanied by: Self / Same As Patient Allergies cephalexin Allergy (Unknown, Verified 02/10/24 15:52) itchy doxycycline [DOXYCYCLINE] Allergy (Unknown, Verified 02/10/24 15:52) ?RXN- TESTED + erythromycin base [ERYTHROMYCIN BASE] Allergy (Unknown, Verified 02/10/24 15:52) ITCHY HIVES levofloxacin [From LEVAQUIN] Allergy (Unknown, Verified 02/10/24 15:52) ITCH HIVES penicillin V Allergy (Unknown, Verified 02/10/24 15:52) unknown Penicillins [PENICILLINS] Allergy (Unknown, Verified 02/10/24 15:52) + WITH ALLERGY TESTING strawberry [STRAWBERRY] Allergy (Unknown, Verified 02/10/24 15:52) ITCHY - HIVES Sulfa (Sulfonamide Antibiotics) [SULFA(SULFONAMIDE ANTIBIOTICS)] Allergy (Unknown, Verified 02/10/24 15:52) RASH tetracycline [TETRACYCLINE] Allergy (Unknown, Verified 02/10/24 15:52) TESTED + WITH ALLERGY WORK - UP Doxycycline (Rosacea) Allergy (Unknown, Uncoded 02/10/24 15:52) itchy Erythromycin Allergy (Unknown, Uncoded 02/10/24 15:52) itchy HPI Comments Details: This 63-year-old white female previously seen by myself for hyperthyroidism due to Graves disease. Currently on methimazole 15 mg q.d. [facility] Medical History (Updated 10/02/22 @ 10:28 by Dada Simmons MD) Hyperthyroidism Light sensitivity Migraine headache Graves disease Surgical History Tubal ligation status [place] teeth extracted Hx of appendectomy Family History Sister Endometrial cancer Mother Lung cancer Social History Household Members: Spouse Housing: House Alcohol intake: never Patient Tobacco Use Status: Never used Tobacco Current occupational status: unemployed Sexual orientation: Straight/Heterosexual Gender identity: Female Female Reproductive History Menstrual Age of Menarche: 9 Physical Exam Vital Signs: Last Vital Signs Pulse 87 02/10/24 15:46 BP 174/98 H 02/10/24 15:46 BMI result Body Mass Index 24.8 Const Other: Thyroid gland is normal size weighs about 15 g . There are no thyroid nodules palpated. Reflexes 2+ DTR Assessment & Plan Assessment & Plan (1) Hyperthyroidism: Code(s): E0. - Thyrotoxicosis, unspecified without thyrotoxic crisis or storm Category: Medical Plan: This is a 63-year-old female with a history of mild hyperthyroidism possibly due to Graves disease. She appears to be clinically euthyroid On 15 mg of methimazole and biochemically euthyroid except for slightly low free T4 suppressed TSH Plan is to recheck thyroid function studies, liver profile and CBC in 6 weeks . We discussed options for therapy including continuation of methimazole versus radioactive iodine versus surgery and the risks and benefits of each the patient is wanting to stay on the methimazole for now Orders: Orders Thyroid Stimulating Hormone 6 Weeks E05.90 - Thyrotoxicosis, unspecified without thyrotoxic crisis or storm Free T4 (Free Thyroxine) 6 Weeks E05.90 - Thyrotoxicosis, unspecified without thyrotoxic crisis or storm Triiodothyronine T3 Free 6 Weeks E05.90 - Thyrotoxicosis, unspecified without thyrotoxic crisis or storm Complete Blood Count Auto Diff 6 Weeks E05.90 - Thyrotoxicosis, unspecified without thyrotoxic crisis or storm Liver Panel Today E05.90 - Thyrotoxicosis, unspecified without thyrotoxic crisis or storm Coding Level of Care Code Est Pt Level 3 (92430) Diagnoses Hyperthyroidism E05
== END 2024-02-10 16:20 | disposition home or self-care (01) ==
PROVIDERS: PCP Internal Medicine; Visit Provider Internal Medicine Endocrinology, Diabetes & Metabolism
DX: E05.90 Thyrotoxicosis, unspecified without thyrotoxic crisis or storm (principal)
CPT/HCPCS: 99213

== ENCOUNTER → 2024-02-10 15:44 | Outpatient (BNVA) | payer MEDICARE, SELFPAY | PROVIDERS: PCP Internal Medicine; Visit Provider Internal Medicine Endocrinology, Diabetes & Metabolism | DX: E05.90 Thyrotoxicosis, unspecified without thyrotoxic crisis or storm (principal) | CPT/HCPCS: 99212 ==

== ENCOUNTER 2024-03-24 08:50 | Outpatient (REF) | payer MEDICARE, SELFPAY ==
[2024-03-24 10:59] LABS: MANUAL DIFF FLAG NO
[2024-03-24 11:06] LABS: Basophils Absolute Auto 0.1 X10*3/uL (0.0-0.2); Basophils Percent Auto 0.8 % (0-2); Eosinophils Absolute Auto 0.2 X10*3/uL (0.0-0.4); Eosinophils Percent Auto 2.5 % (0-4); Hematocrit 44.3 % (37.0-47.0); Hemoglobin 15.1 g/dl (12.0-16.0); Imm Gran Abs Auto 0.02 X10*3/uL (0.00-0.03); Imm Gran Pct Auto 0.3 % (0.0-0.4); Lymphocytes Absolute Auto 1.6 X10*3/uL (1.2-4.9); Lymphocytes Percent Auto 24.4 % (20-40); Mean Corpuscular HGB Conc 34.1 g/dl (31.0-35.0); Mean Corpuscular Volume 87.9 fL (80.0-98.0); Mean Platelet Volume 9.5 fL (9.4-12.3); Monocytes Absolute Auto 0.6 X10*3/uL (0.1-1.2); Monocytes Percent Auto 8.6 % (2-11); Neutrophils Absolute Auto 4.1 x10*3/uL (2.0-8.3); Neutrophils Percent Auto 63.4 % (45-73); Platelet Count 238 X10*3/uL (160-400); Red Blood Count 5.04 X10*6/uL (4.20-5.50); Red Cell Distribution Width 13.3 % (11.0-16.0); White Blood Count 6.4 X10*3/uL (4.8-10.8)
[2024-03-24 11:52] LABS: Alanine Aminotransferase 11 U/L (0-31); Albumin Level 4.2 g/dL (3.5-5.0); Alkaline Phosphatase 95 U/L (39-117); Aspartate Amino Transferase 18 U/L (5-31); Bilirubin Direct 0.2 mg/dL (0.0-0.5); Bilirubin Total 0.4 mg/dL (0.0-1.0)
[2024-03-24 11:53] LABS: Free T4 (Free Thyroxine) 0.69 ng/dL (0.71-1.85); Thyroid Stimulating Hormone 4.01 uIU/mL (0.32-4.0)
[2024-03-25 22:03] LABS: Triiodothyronine T3 Free 2.9 pg/mL (2.3-4.2)
== END 2024-03-24 08:51 | disposition home or self-care (01) ==
LOC: HO.10HDL 08:50
PROVIDERS: Visit Provider Internal Medicine Endocrinology, Diabetes & Metabolism
DX: E05.90 Thyrotoxicosis, unspecified without thyrotoxic crisis or storm (principal)
CPT/HCPCS: 36415; 80076; 84439; 84443; 84481; 85025

== ENCOUNTER 2024-05-25 08:45 | Outpatient (AMB) | payer MEDICARE, SELFPAY ==
[2024-05-25 08:50] VITALS: BP 156/100; BMI 24.5
--- NOTE | 2024-05-25 08:50 | MHC.OFFVIS ---
Vital Signs 05/25/24 08:50 Height 5 ft Weight 125 lb 10.616 oz BMI 24.5 BP 156/100 H Intake Visit Reasons: vulva itching Intake Note: c/o of frequent urination Canned Food Reconditioning Inspector Required: No Information Interpreted: non-clinical & clinical Mold Carrier: Mold Carrier Present (Yolanda Calix NICOLE) Accompanied by: Self / Same As Patient Allergies cephalexin Allergy (Unknown, Verified 05/25/24 08:51) itchy doxycycline [DOXYCYCLINE] Allergy (Unknown, Verified 05/25/24 08:51) ?RXN- TESTED + erythromycin base [ERYTHROMYCIN BASE] Allergy (Unknown, Verified 05/25/24 08:51) ITCHY HIVES levofloxacin [From LEVAQUIN] Allergy (Unknown, Verified 05/25/24 08:51) ITCH HIVES penicillin V Allergy (Unknown, Verified 05/25/24 08:51) unknown Penicillins [PENICILLINS] Allergy (Unknown, Verified 05/25/24 08:51) + WITH ALLERGY TESTING strawberry [STRAWBERRY] Allergy (Unknown, Verified 05/25/24 08:51) ITCHY - HIVES Sulfa (Sulfonamide Antibiotics) [SULFA(SULFONAMIDE ANTIBIOTICS)] Allergy (Unknown, Verified 05/25/24 08:51) RASH tetracycline [TETRACYCLINE] Allergy (Unknown, Verified 05/25/24 08:51) TESTED + WITH ALLERGY WORK - UP Doxycycline (Rosacea) Allergy (Unknown, Uncoded 05/25/24 08:51) itchy Erythromycin Allergy (Unknown, Uncoded 05/25/24 08:51) itchy Post menopausal: Yes HPI Comments Details: Presenting complaining of vulvovaginal irritation and urinary urgency and dribbling over the last 2 weeks, irritation has improved after using [id number] cream PFSH Medical History Hyperthyroidism Light sensitivity Migraine headache Graves disease Surgical History Tubal ligation status [place] teeth extracted Hx of appendectomy Family History Sister Endometrial cancer Mother Lung cancer Social History Household Members: Spouse Housing: House Alcohol intake: never Patient Tobacco Use Status: Never used Tobacco Current occupational status: unemployed Sexual orientation: Straight/Heterosexual Gender identity: Female Female Reproductive History Menstrual Age of Menarche: 9 Review of Systems Const All systems reviewed & are unremarkable except as noted in HPI and below Physical Exam Vital Signs: Last Vital Signs BP 156/100 H 05/25/24 08:50 BMI result Body Mass Index 24.5 General: Yes no CVA tenderness External Female Exam: normal external appearance and normal appearance of the urethra Speculum Exam - Vagina: normal appearance of the vagina, normal palpation, no lesions and no masses Speculum Exam - Cervix: normal appearance of the cervix, normal palpation, no lesions, no masses and nontender Bimanual exam- vagina & uterus: normal bimanual exam, normal palpation, uterine size normal, normal palpation, uterine shape normal, No Cervical tenderness present and non-tender Bimanual Exam- Adnexa, other: normal adnexae Back/Spine/Pelvis Back: no CVA tenderness Results AMB Urinalysis Dipstick UR Leukocytes Negative Last Edit by Yolanda Calix CMA on 05/25/24 09:10 UR Nitrite Negative Last Edit by Yolanda Calix CMA on 05/25/24 09:10 UR Urobilinogen Normal Last Edit by Yolanda Calix CMA on 05/25/24 09:10 UR Protein Negative Last Edit by Yolanda Calix CMA on 05/25/24 09:10 UR Ph 6.0 Last Edit by Yolanda Calix CMA on 05/25/24 09:10 UR Blood Negative Last Edit by Yolanda Calix CMA on 05/25/24 09:10 UR Specific [place] 1.010 Last Edit by Yolanda Calix CMA on 05/25/24 09:10 UR Ketone Negative Last Edit by Yolanda Calix CMA on 05/25/24 09:10 UR Bilirubin Negative Last Edit by Yolanda Calix CMA on 05/25/24 09:10 UR Glucose Negative Last Edit by Yolanda Calix CMA on 05/25/24 09:10 Results Reviewed Results Reviewed: Laboratory Last Values Urine pH (Clinic) 6.0 05/25/24 09:09 Specific [place] (Clinic) 1.010 05/25/24 09:09 Ur Protein (Clinic) Negative 05/25/24 09:09 Ur Ketones (Clinic) Negative 05/25/24 09:09 Urine Blood (Clinic) Negative 05/25/24 09:09 Urine Nitrite Negative 05/25/24 09:09 Urine Bilirubin (Clinic) Negative 05/25/24 09:09 Urobilinogen (Clinic) Normal 05/25/24 09:09 Leukocyte Esterase (Clinic) Negative 05/25/24 09:09 Urine Glucose (Clinic) Negative 05/25/24 09:09 Assessment & Plan Assessment & Plan (1) Atrophic vaginitis: Code(s): N95.2 - Postmenopausal atrophic vaginitis Category: Medical Plan: Urine dip done in the office was negative. Discussed with the patient the finding on pelvic exam and the diagnosis, patient is of treatment were discussed with the patient including estrogen vaginal cream all pros and cons risks and benefits were discussed with the patient, the patient declined at this point will call back if symptoms persist or get worse. All questions answered, the patient verbalized understanding Orders: Orders AMB Urinalysis Dipstick Today R35.0 - Frequency of micturition Coding Level of Care Code Est Pt Level 3 (61379) Diagnoses Atrophic vaginitis N95.2
== END 2024-05-25 09:36 | disposition home or self-care (01) ==
PROVIDERS: PCP Internal Medicine; Visit Provider Obstetrics & Gynecology
DX: R35.0 Frequency of micturition (principal); N95.2 Postmenopausal atrophic vaginitis
CPT/HCPCS: 99213

== ENCOUNTER → 2024-05-25 08:45 | Outpatient (BNVA) | payer MEDICARE, SELFPAY | PROVIDERS: PCP Internal Medicine; Visit Provider Obstetrics & Gynecology | DX: N95.2 Postmenopausal atrophic vaginitis (principal) | CPT/HCPCS: 81002; 99212 ==

== ENCOUNTER 2024-06-06 08:26 | Outpatient (REF) | payer MEDICARE, SELFPAY ==
[2024-06-06 10:32] LABS: MANUAL DIFF FLAG NO
[2024-06-06 10:34] LABS: Basophils Absolute Auto 0.1 X10*3/uL (0.0-0.2); Basophils Percent Auto 0.9 % (0-2); Eosinophils Absolute Auto 0.2 X10*3/uL (0.0-0.4); Eosinophils Percent Auto 2.6 % (0-4); Hematocrit 43.3 % (37.0-47.0); Hemoglobin 14.8 g/dl (12.0-16.0); Imm Gran Abs Auto 0.01 X10*3/uL (0.00-0.03); Imm Gran Pct Auto 0.1 % (0.0-0.4); Lymphocytes Absolute Auto 1.2 X10*3/uL (1.2-4.9); Lymphocytes Percent Auto 18.2 % (20-40); Mean Corpuscular HGB Conc 34.2 g/dl (31.0-35.0); Mean Corpuscular Hemoglobin 30.6 pg (27.0-33.0); Mean Corpuscular Volume 89.6 fL (80.0-98.0); Mean Platelet Volume 9.5 fL (9.4-12.3); Monocytes Absolute Auto 0.7 X10*3/uL (0.1-1.2); Monocytes Percent Auto 9.9 % (2-11); Neutrophils Absolute Auto 4.6 x10*3/uL (2.0-8.3); Neutrophils Percent Auto 68.3 % (45-73); Platelet Count 226 X10*3/uL (160-400); Red Blood Count 4.83 X10*6/uL (4.20-5.50); Red Cell Distribution Width 12.8 % (11.0-16.0); White Blood Count 6.8 X10*3/uL (4.8-10.8)
[2024-06-06 11:10] LABS: Alanine Aminotransferase 11 U/L (0-31); Albumin Level 4.2 g/dL (3.5-5.0); Alkaline Phosphatase 94 U/L (39-117); Aspartate Amino Transferase 18 U/L (5-31); Bilirubin Direct 0.1 mg/dL (0.0-0.5); Bilirubin Total 0.3 mg/dL (0.0-1.0); Total Protein 7.1 g/dL (6.5-8.0)
[2024-06-06 11:27] LABS: Free T4 (Free Thyroxine) 0.66 ng/dL (0.71-1.85); Thyroid Stimulating Hormone 5.17 uIU/mL (0.32-4.0)
[2024-06-07 08:59] LABS: Triiodothyronine T3 Free 3.2 pg/mL (2.3-4.2)
== END 2024-06-06 08:27 | disposition home or self-care (01) ==
LOC: HO.10HDL 08:26
PROVIDERS: Visit Provider Internal Medicine Endocrinology, Diabetes & Metabolism
DX: E05.90 Thyrotoxicosis, unspecified without thyrotoxic crisis or storm (principal)
CPT/HCPCS: 36415; 80076; 84439; 84443; 84481; 85025

== ENCOUNTER 2024-06-12 13:10 | Outpatient (AMB) | payer MEDICARE, SELFPAY ==
--- NOTE | 2024-06-12 13:21 | A.OFFVIS_ITS ---
Vital Signs 06/12/24 13:25 Height 5 ft Weight 123 lb 10.869 oz BMI 24.2 BP 168/92 H Blood Pressure Location Lt brachial Position Sitting Pulse 89 Pulse Source Pulse Oximeter Intake Visit Reasons: f/u hyperthyroidism-conf Intake Note: Patient present today for Hyperthyroidism follow up visit. Manager Social Media Required: No Accompanied by: Self / Same As Patient Allergies cephalexin Allergy (Unknown, Verified 06/12/24 13:22) itchy doxycycline [DOXYCYCLINE] Allergy (Unknown, Verified 06/12/24 13:22) ?RXN- TESTED + erythromycin base [ERYTHROMYCIN BASE] Allergy (Unknown, Verified 06/12/24 13:22) ITCHY HIVES levofloxacin [From LEVAQUIN] Allergy (Unknown, Verified 06/12/24 13:22) ITCH HIVES penicillin V Allergy (Unknown, Verified 06/12/24 13:22) unknown Penicillins [PENICILLINS] Allergy (Unknown, Verified 06/12/24 13:22) + WITH ALLERGY TESTING strawberry [STRAWBERRY] Allergy (Unknown, Verified 06/12/24 13:22) ITCHY - HIVES Sulfa (Sulfonamide Antibiotics) [SULFA(SULFONAMIDE ANTIBIOTICS)] Allergy (Unknown, Verified 06/12/24 13:22) RASH tetracycline [TETRACYCLINE] Allergy (Unknown, Verified 06/12/24 13:22) TESTED + WITH ALLERGY WORK - UP Doxycycline (Rosacea) Allergy (Unknown, Uncoded 06/12/24 13:22) itchy Erythromycin Allergy (Unknown, Uncoded 06/12/24 13:22) itchy HPI Comments Details: This 63-year-old white female previously seen by myself for hyperthyroidism due to Graves disease. Currently on methimazole 12.5 mg q.d. [facility] Medical History Hyperthyroidism Light sensitivity Migraine headache Graves disease Surgical History Tubal ligation status [place] teeth extracted Hx of appendectomy Family History Sister Endometrial cancer Mother Lung cancer Social History Household Members: Spouse Housing: House Alcohol intake: never Patient Tobacco Use Status: Never used Tobacco Current occupational status: unemployed Sexual orientation: Straight/Heterosexual Gender identity: Female Female Reproductive History Menstrual Age of Menarche: 9 Physical Exam Vital Signs: BMI result Body Mass Index 24.2 Const Other: Thyroid gland is feels top-normal in size and feels nodulular to palpation. There are no thyroid nodules palpated. Reflexes 2+ DTR Assessment & Plan Assessment & Plan (1) Hyperthyroidism: Code(s): E0 - Thyrotoxicosis, unspecified without thyrotoxic crisis or storm Category: Medical Plan: This is a 63-year-old female with a history of mild hyperthyroidism possibly due to Graves disease. She appears to be clinically euthyroid On 12.5 mg of methimazole and biochemically euthyroid with elevated TSH Plan is to decrease methimazole to 5 mg and recheck thyroid function studies, liver profile and CBC in 4 weeks . We discussed options for therapy including continuation of methimazole versus radioactive iodine versus surgery and the risks and benefits of each the patient is wanting to stay on the methimazole for now. Will also get thyroid ultrasound in light of the nodular feel to thyroid Orders: Orders Thyroid Stimulating Hormone 4 Weeks E05.90 - Thyrotoxicosis, unspecified w ithout thyrotoxic crisis or storm Triiodothyronine T3 Free 4 Weeks E05.90 - Thyrotoxicosis, unspecified without thyrotoxic crisis or storm Liver Panel 4 Weeks E05.90 - Thyrotoxicosis, unspecified without thyrotoxic crisis or storm Free T4 (Free Thyroxine) 4 Weeks E05.90 - Thyrotoxicosis, unspecified without thyrotoxic crisis or storm Complete Blood Count Auto Diff 4 Weeks E05. - Thyrotoxicosis, unspecified without thyrotoxic crisis or storm Thyrotropin Receptor Antibody 4 Weeks E05.90 - Thyrotoxicosis, unspecified without thyrotoxic crisis or storm US thyroid Today E05. - Thyrotoxicosis, unspecified without thyrotoxic crisis or storm Medications: New methimazole 5 mg PO DAILY 30 tabs 4RF methimazole 10 mg (2 x 5 mg) PO DAILY 60 tabs 4RF Discontinued methimazole Discontinued Reason: Doctor's Order 12.5 mg (2.5 x 5 mg) PO DAILY 90 days 2 25 tabs 4RF Coding Level of Care Code Est Pt Level 3 (97305) Diagnoses Hyperthyroidism E0
[2024-06-12 13:25] VITALS: BP 168/92; PULSE 89; BMI 24.2
== END 2024-06-12 14:07 | disposition home or self-care (01) ==
PROVIDERS: PCP Internal Medicine; Visit Provider Internal Medicine Endocrinology, Diabetes & Metabolism
DX: E05.90 Thyrotoxicosis, unspecified without thyrotoxic crisis or storm (principal)
CPT/HCPCS: 99213

== ENCOUNTER → 2024-06-12 13:10 | Outpatient (BNVA) | payer MEDICARE, SELFPAY | PROVIDERS: PCP Internal Medicine; Visit Provider Internal Medicine Endocrinology, Diabetes & Metabolism | DX: E05.90 Thyrotoxicosis, unspecified without thyrotoxic crisis or storm (principal) | CPT/HCPCS: 99212 ==

== ENCOUNTER 2024-06-20 14:09 | Outpatient (REF) | payer MEDICARE, SELFPAY ==
--- NOTE | ~2024-06-20 | US_ITS ---
EXAMINATION: US THYROID CLINICAL INFORMATION: Thyrotoxicosis, unspecified without thyrotoxic crisis or storm. COMPARISON: None available. TECHNIQUE: Linear transducer grayscale and color Doppler examination with attention to the region of the thyroid. FINDINGS: SIZE: Measurements of the thyroid lobes and nodules are given in sagittal, anteroposterior and transverse dimensions respectively. Right Thyroid Lobe: 5.0 x 1.5 x 1.8 cm, volume 7.1 mL. Parenchyma: The gland echotexture is heterogeneous. Thyroid vascularity is increased. Left Thyroid Lobe: 4.1 x 1.4 x 1.6 cm, volume 4.8 mL. Parenchyma: The gland echotexture is heterogeneous. Thyroid vascularity is increased. Isthmus: 0.4 cm in maximum AP dimension. Estimated total number of nodules greater than or equal to 1 cm: 1. Lacquer Maker nodules are described as follows: 1. Location: Left mid. Size: 1.1 x 0.9 x 0.7 cm, volume 0.4 mL. Nodule characteristics: Composition: Solid (2). Echogenicity: Hyperechoic (1). Shape: Taller than wide (3). Margins: Smooth (0). Echogenic Foci: None (0). ACR TI-RADS total points: 6 ACR TI-RADS category: 4 NODES: A small 0.6 cm isoechoic soft tissue nodule inferior to the right thyroid gland which may reflect a small parathyroid adenoma in the appropriate clinical setting versus a small nonenlarged lymph node. US/US thyroid IMPRESSION: Heterogeneous hypervascular thyroid which can be seen in the setting of thyroiditis. A 1.1 cm TR 4 left thyroid nodule which meets criteria for follow-up ultrasound at 1, 2, 3, and 5 years. A small 0.6 cm isoechoic soft tissue nodule inferior to the right thyroid gland which may reflect a small parathyroid adenoma in the appropriate clinical setting versus a small nonenlarged lymph node. ACR TI-RADS RECOMMENDATION REFERENCE: Ultrasound-guided fine-needle aspiration, followup ultrasound, no further follow up. * TR1 (0 point) and TR2 (2 points): No FNA or follow up. * TR3 (3 points): FNA if more than or equal to 2.5 cm in maximum dimension, followup ultrasound in 1, 3 and 5 years if 1.5 to 2.4 cm in maximum dimension. * TR4 (4-6 points): FNA if more than or equal to 1.5 cm in maximum dimension, followup ultrasound in 1, 2, 3 and 5 years if 1 to 1.4 cm in maximum dimension. * TR5 (more than or equal to 7 points): FNA if more than or equal to 1 cm in maximum dimension, followup ultrasound every year for 5 years if 0.5 to 0.9 cm in maximum dimension. * TR3, TR4 or TR5 nodules that are below the size threshold for followup receive no follow up. Electronically signed by: Beatriz Bui MD 07/10/2024 05:32 PM EDT
== END 2024-06-20 14:10 | disposition home or self-care (01) ==
LOC: HO.US 14:09
PROVIDERS: PCP Internal Medicine; Visit Provider Internal Medicine Endocrinology, Diabetes & Metabolism
DX: E05.90 Thyrotoxicosis, unspecified without thyrotoxic crisis or storm (principal)
CPT/HCPCS: 76536

== ENCOUNTER 2024-07-03 10:45 | Outpatient (REF) | payer MEDICARE, SELFPAY ==
[2024-07-03 10:47] LABS: MANUAL DIFF FLAG NO
[2024-07-03 11:10] LABS: Basophils Absolute Auto 0.1 X10*3/uL (0.0-0.2); Eosinophils Absolute Auto 0.2 X10*3/uL (0.0-0.4); Eosinophils Percent Auto 2.9 % (0-4); Hematocrit 45.5 % (37.0-47.0); Hemoglobin 15.4 g/dl (12.0-16.0); Imm Gran Abs Auto 0.01 X10*3/uL (0.00-0.03); Imm Gran Pct Auto 0.2 % (0.0-0.4); Lymphocytes Absolute Auto 1.4 X10*3/uL (1.2-4.9); Lymphocytes Percent Auto 24.4 % (20-40); Mean Corpuscular HGB Conc 33.8 g/dl (31.0-35.0); Mean Corpuscular Hemoglobin 30.4 pg (27.0-33.0); Mean Corpuscular Volume 89.7 fL (80.0-98.0); Monocytes Absolute Auto 0.5 X10*3/uL (0.1-1.2); Monocytes Percent Auto 8.8 % (2-11); Neutrophils Absolute Auto 3.7 x10*3/uL (2.0-8.3); Neutrophils Percent Auto 62.7 % (45-73); Platelet Count 236 X10*3/uL (160-400); Red Blood Count 5.07 X10*6/uL (4.20-5.50); Red Cell Distribution Width 12.9 % (11.0-16.0); White Blood Count 5.9 X10*3/uL (4.8-10.8)
[2024-07-03 11:13] LABS: Appearance Urine Cloudy; Color Urine Yellow; Glucose Urine UA Negative (Negative); Leukocyte Esterase Urine Negative (Negative); Nitrite Urine Negative (Negative); PH 7.5 (5.0-9.0); Specific Gravity - Urine 1.015 (1.005-1.025); Urine Blood Negative (Negative); Urine Ketones Negative (Negative); Urine Protein Negative (Neg-Trace)
[2024-07-03 11:17] LABS: Bacteria Urine None Seen (None Seen); Hyaline Casts Urine 0-2 /LPF (0-2); RBC Urine 0-2 /HPF (0-2); Squamous Epithelial Cell Urine 0-2 /HPF (0-2); WBC Urine 0-5 /HPF (0-5)
[2024-07-03 11:39] LABS: Alanine Aminotransferase 13 U/L (0-31); Albumin Level 4.2 g/dL (3.5-5.0); Alkaline Phosphatase 93 U/L (39-117); Anion Gap 11 (12-20); Aspartate Amino Transferase 19 U/L (5-31); Bilirubin Total 0.8 mg/dL (0.0-1.0); Blood Urea Nitrogen 14 mg/dL (9-16); Calcium 9.9 mg/dL (8.4-10.2); Carbon Dioxide 28 mmol/L (22-29); Chloride 107 mmol/L (96-108); Cholesterol 241 mg/dL (<200); Estimated Glomerular Filt Rate 58; Glucose Fasting 96 mg/dL (60-99); HDL Cholesterol 77 mg/dL (>40); LDL Cholesterol Calculated 141 mg/dL (<100); Sodium 142 mmol/L (135-145); Total Protein 7.2 g/dL (6.5-8.0); Triglycerides 119 mg/dL (<150)
== END 2024-07-03 10:46 | disposition home or self-care (01) ==
LOC: HO.LNP 10:45
PROVIDERS: Visit Provider Internal Medicine
DX: Z00.00 Encounter for general adult medical examination without abnormal findings (principal); I10 Essential (primary) hypertension; E05.00 Thyrotoxicosis with diffuse goiter without thyrotoxic crisis or storm; E78.2 Mixed hyperlipidemia
CPT/HCPCS: 80053; 80061; 81001; 85025

== ENCOUNTER 2024-08-21 09:53 | Outpatient (REF) | payer MEDICARE, SELFPAY ==
[2024-08-21 10:48] LABS: MANUAL DIFF FLAG NO
[2024-08-21 10:55] LABS: Basophils Absolute Auto 0.1 X10*3/uL (0.0-0.2); Basophils Percent Auto 0.7 % (0-2); Eosinophils Absolute Auto 0.1 X10*3/uL (0.0-0.4); Eosinophils Percent Auto 1.3 % (0-4); Hematocrit 46.4 % (37.0-47.0); Hemoglobin 15.8 g/dl (12.0-16.0); Imm Gran Abs Auto 0.01 X10*3/uL (0.00-0.03); Imm Gran Pct Auto 0.1 % (0.0-0.4); Lymphocytes Absolute Auto 1.2 X10*3/uL (1.2-4.9); Mean Corpuscular HGB Conc 34.1 g/dl (31.0-35.0); Mean Corpuscular Hemoglobin 30.5 pg (27.0-33.0); Mean Corpuscular Volume 89.6 fL (80.0-98.0); Mean Platelet Volume 9.7 fL (9.4-12.3); Monocytes Absolute Auto 0.5 X10*3/uL (0.1-1.2); Monocytes Percent Auto 7.8 % (2-11); Neutrophils Absolute Auto 4.9 x10*3/uL (2.0-8.3); Neutrophils Percent Auto 72.1 % (45-73); Platelet Count 237 X10*3/uL (160-400); Red Blood Count 5.18 X10*6/uL (4.20-5.50); Red Cell Distribution Width 12.7 % (11.0-16.0); White Blood Count 6.8 X10*3/uL (4.8-10.8)
[2024-08-21 11:11] LABS: Alanine Aminotransferase 19 U/L (0-31); Albumin Level 4.4 g/dL (3.5-5.0); Alkaline Phosphatase 101 U/L (39-117); Aspartate Amino Transferase 23 U/L (5-31); Bilirubin Direct 0.1 mg/dL (0.0-0.5); Bilirubin Total 0.4 mg/dL (0.0-1.0); Total Protein 7.5 g/dL (6.5-8.0)
[2024-08-21 11:30] LABS: Free T4 (Free Thyroxine) 0.85 ng/dL (0.71-1.85); Thyroid Stimulating Hormone 0.47 uIU/mL (0.32-4.0)
[2024-08-22 13:48] LABS: Triiodothyronine T3 Free 3.4 pg/mL (2.3-4.2)
[2024-08-24 20:09] LABS: Thyrotropin Receptor Antibody 4.54 IU/L (<=2.00)
== END 2024-08-21 09:54 | disposition home or self-care (01) ==
LOC: HO.10HDL 09:53
PROVIDERS: Visit Provider Internal Medicine Endocrinology, Diabetes & Metabolism
DX: E05.90 Thyrotoxicosis, unspecified without thyrotoxic crisis or storm (principal)
CPT/HCPCS: 36415; 80076; 83520; 84439; 84443; 84481; 85025

== ENCOUNTER 2024-09-11 11:23 | Outpatient (AMB) | payer MEDICARE, SELFPAY ==
--- NOTE | 2024-09-11 11:26 | A.OFFVIS_ITS ---
Vital Signs 09/11/24 11:30 Height 5 ft Weight 126 lb 5.198 oz BMI 24.7 BP 146/84 H Blood Pressure Location Rt brachial Position Sitting Pulse 91 Pulse Source Pulse Oximeter Intake Visit Reasons: f/u hyperthyroidism-lvm Intake Note: Patient present today for Hyperthyroidism follow up visit. Doorperson Or Luggage Porter Required: No Accompanied by: Self / Same As Patient Allergies cephalexin Allergy (Unknown, Verified 09/11/24 11:30) itchy doxycycline [DOXYCYCLINE] Allergy (Unknown, Verified 09/11/24 11:30) ?RXN- TESTED + erythromycin base [ERYTHROMYCIN BASE] Allergy (Unknown, Verified 09/11/24 11:30) ITCHY HIVES levofloxacin [From LEVAQUIN] Allergy (Unknown, Verified 09/11/24 11:30) ITCH HIVES penicillin V Allergy (Unknown, Verified 09/11/24 11:30) unknown Penicillins [PENICILLINS] Allergy (Unknown, Verified 09/11/24 11:30) + WITH ALLERGY TESTING strawberry [STRAWBERRY] Allergy (Unknown, Verified 09/11/24 11:30) ITCHY - HIVES Sulfa (Sulfonamide Antibiotics) [SULFA(SULFONAMIDE ANTIBIOTICS)] Allergy (Unknown, Verified 09/11/24 11:30) RASH tetracycline [TETRACYCLINE] Allergy (Unknown, Verified 09/11/24 11:30) TESTED + WITH ALLERGY WORK - UP Doxycycline (Rosacea) Allergy (Unknown, Uncoded 09/11/24 11:30) itchy Erythromycin Allergy (Unknown, Uncoded 09/11/24 11:30) itchy Medication List - Last Reconciled 09/11/24 by Dada Simmons MD methimazole 5 mg PO DAILY multivitamin 1 tab PO DAILY vitamin E mixed units PO HPI Comments Details: This 64-year-old white female previously seen by myself for hyperthyroidism due to Graves disease. Currently on methimazole 5 mg q.d. no symptoms of hyperthyroidism or hypothyroidism. Thyroid ultrasound showed a subcentimeter left midpole nodule [facility] Medical History Hyperthyroidism Light sensitivity Migraine headache Graves disease Surgical History Tubal ligation status [place] teeth extracted Hx of appendectomy Family History Sister Endometrial cancer Mother Lung cancer Social History Household Members: Spouse Housing: House Alcohol intake: never Patient Tobacco Use Status: Never used Tobacco Current occupational status: unemployed Sexual orientation: Straight/Heterosexual Gender identity: Female Female Reproductive History Menstrual Age of Menarche: 9 Physical Exam Vital Signs: BMI result Body Mass Index 24.7 Const Other: Thyroid gland is feels top-normal in size and feels nodulular to palpation. There are no thyroid nodules palpated. Reflexes 2+ DTR Assessment & Plan Assessment & Plan (1) Hyperthyroidism: Code(s): E0 - Thyrotoxicosis, unspecified without thyrotoxic crisis or storm Category: Medical Plan: This is a 64-year-old female with a history of mild hyperthyroidism possibly due to Graves disease. She appears to be clinically and biochemically euthyroid On 5 mg of methimazole . Trapped antibodies are positive After discussion with the patient, we decided to increase the methimazole 7.5 mg q.d. in attempt to increase the TSH somewhat. The patient felt better with a high normal TSH rather than low normal. . We discussed options for therapy including continuation of methimazole versus radioactive iodine versus surgery and the risks and benefits of each the patient is wanting to stay on the methimazole for now. We will repeat thyroid ultrasound about 1-2 years time Orders: Orders Thyroid Stimulating Hormone 4 Weeks E05.90 - Thyrotoxicosis, unspecified without thyrotoxic crisis or storm Free T4 (Free Thyroxine) 4 Weeks E05.90 - Thyrotoxicosis, unspecified without thyrotoxic crisis or storm Triiodothyronine T3 Free 4 Weeks E05.90 - Thyrotoxicosis, unspecified without thyrotoxic crisis or storm Medications: Changed From methimazole 5 mg PO DAILY 30 tabs 4RF To methimazole 7.5 mg (1.5 x 5 mg) PO DAILY 30 days 45 tabs 4RF Coding Level of Care Code Est Pt Level 3 (90691) Diagnoses Hyperthyroidism E05.90
[2024-09-11 11:30] VITALS: BP 146/84; PULSE 91; BMI 24.7
== END 2024-09-11 12:20 | disposition home or self-care (01) ==
PROVIDERS: PCP Internal Medicine; Visit Provider Internal Medicine Endocrinology, Diabetes & Metabolism
DX: E05.90 Thyrotoxicosis, unspecified without thyrotoxic crisis or storm (principal)
CPT/HCPCS: 99213

== ENCOUNTER → 2024-09-11 11:23 | Outpatient (BNVA) | payer MEDICARE, SELFPAY | PROVIDERS: PCP Internal Medicine; Visit Provider Internal Medicine Endocrinology, Diabetes & Metabolism | DX: E05.00 Thyrotoxicosis with diffuse goiter without thyrotoxic crisis or storm (principal) | CPT/HCPCS: 99212 ==

== ENCOUNTER 2024-10-17 09:05 | Outpatient (REF) | payer MEDICARE, SELFPAY ==
[2024-10-17 11:27] LABS: Free T4 (Free Thyroxine) 0.93 ng/dL (0.71-1.85); Thyroid Stimulating Hormone 0.16 uIU/mL (0.32-4.0)
[2024-10-18 05:53] LABS: Triiodothyronine T3 Free 3.4 pg/mL (2.3-4.2)
== END 2024-10-17 09:06 | disposition home or self-care (01) ==
LOC: HO.10HDL 09:05
PROVIDERS: Visit Provider Internal Medicine Endocrinology, Diabetes & Metabolism
DX: E05.90 Thyrotoxicosis, unspecified without thyrotoxic crisis or storm (principal)
CPT/HCPCS: 36415; 84439; 84443; 84481

== ENCOUNTER 2024-12-05 11:33 | Outpatient (REF) | payer MEDICARE, SELFPAY ==
--- OUTSIDE RECORDS SUMMARY | 2024-12-05 12:46 | XMS_ITS ---
Author Organization Matt Gomes MD Address [address] [place] [phone] Care Team Providers Care Senior Internet Sales Consultant Name Role Phone Matt Gomes Primary Care Provider REASON FOR VISIT pain near my carol's tendon Encounters Encounter Location Date Provider Diagnosis Matt Gomes MD [address] [place] [phone] 09/07/2024 Matt Gomes Achilles tendinitis of left lower extremity M76.62 Assessments Encounter Date Diagnosis (ICD Code) Assessment Notes Treatment Notes Treatment Clinical Notes Section Notes 09/07/2024 Achilles tendinitis of left lower extremity (ICD-10 - M76.62) Plan Of Treatment Pending Test Test Name Order Date VENOGRAM UNILATERAL 09/07/2024 Next Appt Details Provider Name:Matt sam, 12/08/2024 10:00:00 AM, [address] [place] [address], [address], [phone], Provider Name:Matt sam, 07/05/2025 08:00:00 AM, [address], [address], [place], [phone], Provider Name:Matt Flannery cecy, 07/12/2025 02:30:00 PM, [address] [facility] [address], [address], [place], [phone], Progress Notes * Eulalia CALIXTO ADOB:[birth year] (64 yo F)Acc No.[id number]:09/07/2024 Patient:?Delmy Eulalia Post :1960???Age:64 Y???Sex:Female Address:[address] [place] [address], [place] [address] Subjective: * Chief Complaints: * ???Pain near my carol's te ndon * Medical History:? * Surgical History:? * Hospitalization/Major Diagno stic Procedure:? * Medications:? Objective: Assessment: * Assessment: 1.?Achilles tendinitis of le lower extremity - M76.62? Plan: * Treatment: * Procedure Codes:? * true * Date:? Generated for Julito waters/Skylar/eTransmitting on:?12/05/2024 12:46 PM EST
--- OUTSIDE RECORDS SUMMARY | 2024-12-05 12:46 | XMS_ITS ---
Author Organization Matt Gomes MD Address [address] [place], [place] [id number] Care Team Providers Care Machine Riveter Name Role Phone Matt Gomes Primary Care Provider [phone] Allergies Allergen (clinical drug ingredient) Drug/Non Drug Allergy documented on EMR Reaction Allergy Type Onset Date Status levaquin (uncoded) itchy Allergy A ctive penicillin (uncoded) hives Allergy Active sulfamethoxazole / trimethoprim bactrim (uncoded) rash Allergy Active doxycycline Doxycycline itchy Drug Allergy Act patrick keflex (uncoded) itchy Allergy Act patrick tetracycline tetracycline (uncoded) itchy Allergy Active erythromycin erythromycin (uncoded) itchy Allergy Active Results Component Value [...] Location Date Provider Diagnosis Matt Gomes MD [address] [place] [address] Drive [address] [place], [place] [phone] 07/10/2024 Matt Gomes Elevated cholesterol with elevated [...] Up: 1 Year, Reason: Provider Name:Matt Flannery cecy, 12/08/2024 10:00:00 AM, [address], [address], [place], [id number], Provider Name:Matt Flannery cecy, 07/05/2025 08:00:00 AM, [address], [address], [place], [id number], Provider Name:Matt Flannery cecy, 07/12/2025 02:30:00 PM, [address], [address], [place], [id number], Progress Notes * Eulalia CALIXTO ADOB:[birth year] (63 yo F)Acc No.[id number]:07/10/2024 Progress Notes Patient:?Eulalia Calixto A Provider:?Matt Gomes MD :1960???Age:63 Y???Sex:Female D ate:07/10/2024 Address:[address] [place], [place] [phone] Subjective: * Chief Complaints: * ???Annual visit * HPI: ???Depression Screening:?PHQ-9?Little interest or pleasure in doing things?Not at all,?Feeling down, depressed, or hopeless?Not at all,?Trouble falling or staying asleep, or sleeping too much?Not at all,?Feeling tired or having little energy?Not at all,?Poor appetite or overeating?Not at all,?Feeling bad about yourself or that you are a failure, or have let yourself or your family down?Not at all,?Trouble concentrating on things, such as reading the newspaper or watching television?Not at all,?Moving or speaking so slowly that other people could have noticed; or the opposite, being so fidgety or restless that you have been moving around a lot more than usual?Not at all,?Thoughts that you would be better off or of hurting yourself in some way?Not at all,?Total Score?0.?Interpretation and Intervention?Depression Screening Findings?Negative,?Follow-Up for Depression?: review of PHQ-9 found negative result, no follow-up needed.? patient is a 63 yo female here for yearly evaluation with review of recent labs and follow up of chronic issues. ???Communication Needs:?Communication Needs?Does the patient have a hearing impairment?No,?Does the patient have a vision impairment??Yes,?If yes, what is the vision impairment??Glasses,?Does the patient have a cognition impairment??No.?Fall Risk:?History?Have you had any falls with injury in the past year??No,?Have you had two or more falls in the past year??No.?SDOH Questions:?SDOH Questions?In the past year have you been worried about losing housing??No,?In the past year have you or any family members you live with been unable to get any of the following when it was really needed? Check all that apply:?None.? * ROS:?General/Constitutional:?Patient denies?fatigue , headache.?Change in appetite?denies.?Chills?denies.?Fever?denies.?Ophthalmologic:?Blurred vision?denies.?Discharge?denies.?Pain?denies.?ENT:?Patient denies?decreased sense of smell , any loss of taste , sore throat.?Decreased hearing?denies.?Sore throat?denies.?Swollen glands?denies.?Endocrine:?Cold intolerance?denies.?Excessive thirst?denies.?Heat intolerance?denies.?Weight loss?denies.?Respiratory:?Cough?denies.?Shortness of breath at rest?denies.?Shortness of breath with exertion?denies.?Wheezing?denies.?Cardiovascular:?Chest pain at rest?denies.?Chest pain with exertion?denies.?Irregular heartbeat?denies.?Shortness of breath?denies.?Gastrointestinal:?Abdominal pain?denies.?Change in bowel habits?denies.?Diarrhea?denies.?Nausea?denies.?Rectal bleeding?denies.?Vomiting?denies .?Genitourinary:?Blood in urine?denies.?Difficulty urinating?denies.?Frequent urination?denies.?Urinary incontinence?Denies.?Musculoskeletal:?Patient denies?muscle aches.?Painful joints?denies.?Weakness?denies.?Peripheral Vascular:?Patient denies?red and blue toes.?Skin:?Dry skin?denies.?Itching?denies.?Denies?Mole(s),? changes in moles, new moles or any lesions of concern.?Denies?Photosensitivity.?Rash?denies.?Neurologic:?Dizziness?denies.?Fainting?denies.?Headache?denies.? * Medical History:? * Surgical History:? * Hospitalization/Major Diagno stic Procedure:? * Family History:?Father: dece ased 69 yrs.?Mother: 76 yrs.?1 brother(s) , 3 sister(s) . 2 daughter(s) - healthy. .? multiple kidney stones in family father, Mesotheliaoma mother, lung cancer sisters with kidney stones and asthma, Denies mental health/substance abuse family history, Denies mental health/substance abuse family history, Denies mental health/substance abuse family history. * Social History:?Tobacco Use:?Tobacco Use/Smoking?Patient is a?nonsmoker,?Additional Findings: Tobacco Non-User?Current non-smoker, currently using no form of tobacco.?Drugs/Alcohol:?Alcohol Screen?Did you have a drink containing alcohol in the past year??No,?Points?0,?Interpretation?Negative.?Miscellaneous:?Caffeine: yes, frequency. Children: yes. Community involvements: yes. Exercise: yes, runs up and down stairs at home, moves fast. Home smoke detector use: yes. Housing: owning. Living with: spouse. Marital status: . Occupation: unemployed. Others at home: none. Pets: none. no Travel outside of the [place]. * Medications:?TakingmethIMAzo le 5 MG Tablet 31tablet Orally Once a dayMedication List reviewed and reconciled with the patientTaking methIMAzole 5 MG Tablet 31tablet Orally Once a dayMedication List reviewed and reconciled with the patient * Allergies:?bactrim: rashpeni cillin: hiveslevaquin: itchyerythromycin: itchytetracycline: itchykeflex: itchyDoxycycline: itchyyes[Allergies Verified] Objective: * Vitals:?Ht: 61, Wt:127, BMI: 23.99 weight is up 3 pounds since 02-07-24. * ???Past Orders: ???Lab:Comprehensive [place]. P jona Fast (Order Date - 07/03/2024) (Collection Date - 07/03/2024) ? Value Reference Range ?Sodium 142 135-145 - mmo l/L ?Bilirubin Total 0.8 0.0- 1.0 - mg/dL ?Aspartate Amino Transferase 19 5-31 - U/L ?Alanine Aminotransferase 13 0-31 - U/L ?Total Protein 7.2 6.5-8. 0 - g/dL ?Albumin Level 4.2 3.5-5. 0 - g/dL ?Alkaline Phosphatase 93 39-117 - U/L ?Potassium 4.0 3.3-5.1 - mmol/L ?Chloride 107 96-108 - mm ol/L ?Carbon Dioxide 28 22-29 - mmol/L ?Anion Gap 11 L 12-20 - ?Blood Urea Nitrogen 14 9-16 - mg/dL ?Creatinine 0.97 0.5-1.4 - mg/dL ?Estimated Glomerular Filt Rate 58 - ?Glucose Fasting 96 60-9 9 - mg/dL ?Calcium 9.9 8.4-10.2 - m g/dL ???Lab:Lipid Panel (Order Da te - 07/03/2024) (Collection Date - 07/03/2024) ? Value Reference Range ?Triglycerides 119 <150 - mg/dL ?Cholesterol 241 H <200 - m g/dL ?LDL Cholesterol Calculated 141 H <100 - mg/dL ?HDL Cholesterol 77 >40 - mg/dL ???Lab:Complete Blood Count Auto Diff (Order Date - 07/03/2024) (Collection Date - 07/03/2024) ? Value Reference Range ?White Blood Count 5.9 4. 8-10.8 - X10*3/uL ?Red Blood Count 5.07 4.20 -5.50 - X10*6/uL ?Hemoglobin 15.4 12.0-16.0 - g/dl ?Hematocrit 45.5 37.0-47.0 - % ?Mean Corpuscular Volume 89.7 80.0-98.0 - fL ?Mean Corpuscular Hemoglobin 30.4 27.0-33.0 - pg ?Mean Corpuscular HGB Conc 33.8 31.0-35.0 - g/dl ?Red Cell Distribution Width 12.9 11.0-16.0 - % ?Platelet Count 236 160-4 00 - X10*3/uL ?Mean Platelet Volume 10.0 9.4-12.3 - fL ?Neutrophils Percent Auto 62.7 45-73 - % ?Imm Gran Pct Auto 0.2 0. 0-0.4 - % ?Lymphocytes Percent Auto 24.4 20-40 - % ?Monocytes Percent Auto 8.8 2-11 - % ?Eosinophils Percent Auto 2.9 0-4 - % ?Basophils Percent Auto 1.0 0-2 - % ?NRBC Pct Auto 0.0 0.0-0. 2 - /100WBC ?Neutrophils Absolute Auto 3.7 2.0-8.3 - x10*3/uL ?Imm Gran Abs Auto 0.01 0. 00-0.03 - X10*3/uL ?Lymphocytes Absolute Auto 1.4 1.2-4.9 - X10*3/uL ?Monocytes Absolute Auto 0.5 0.1-1.2 - X10*3/uL ?Eosinophils Absolute Auto 0.2 0.0-0.4 - X10*3/uL ?Basophils Absolute Auto 0.1 0.0-0.2 - X10*3/uL ?NRBC Abs Auto 0.000 0.0-0. 012 - X10*3/uL ???Lab:UA ClnCatch+Micro w/r flx Cult (Order Date - 07/03/2024) (Collection Date - 07/03/2024) ? Value Reference Range ?Color Urine Yellow - ?Appearance Urine Cloudy - ?PH 7.5 5.0-9.0 - ?Glucose Urine UA Negative Neg ative - mg/dL ?Urine Blood Negative Negative - ?Specific [place] - Urine 1.015 1.005-1.025 - ?Urine Protein Negative Neg-Tr elin - mg/dL ?Urine Ketones Negative Negati ve - mg/dL ?Nitrite Urine Negative Negati ve - ?Leukocyte Esterase Urine Negative Negative - ?RBC Urine 0-2 0-2 - /HPF ?WBC Urine 0-5 0-5 - /HPF ?Squamous Epithelial Cell Urine 0-2 0-2 - /HPF ?Bacteria Urine None Seen None Seen - ?Hyaline Casts Urine 0-2 0-2 - /LPF * Examination: ???General Examination: ?GENERAL APPEARANCE:?well developed, well nourished, in no acute distress.?HEAD:?normocephalic, atraumatic.?EYES:?pupils equal, round, reactive to light and accommodation, sclera non-icteric.?EARS:?normal.?ORAL CAVITY:?mucosa moist.?THROAT:?clear.?NECK/THYROID:?neck supple, full range of motion, no cervical lymphadenopathy, no bruits.?SKIN:?warm and dry, no suspicious lesions.?HEART:?regular rate and rhythm, S1, S2 normal, no murmurs.?LUNGS:?clear to auscultation bilaterally.?BREASTS:?No mass, no lump.?ABDOMEN:?soft, nontender, nondistended, bowel sounds present, normal, no organomegaly , no masses palpable.?RECTAL EXAM:?no external hemorrhoids, stool guaiac negative, mass palpable.?FEMALE GENITOURINARY:?done by application dba.?EXTREMITIES:?no clubbing, cyanosis, or edema has spider veins.?NEUROLOGIC:?nonfocal, motor strength normal upper and lower extremities, sensory exam intact.? Assessment: * Assessment: 1.?Annual physical exam - Z0 0.00 (Primary)?2.?Elevated cholesterol with elevated triglycerides - E78.2?3.?Graves disease - E05.00?4.?Labile hypertension - I10?5.?REEMA (obstructive sleep apnea) - G47.33?6.?Colon cancer screening - Z12.11?7. Depression screening - Z13.31? Plan: * Treatment: 2.?Elevated cholesterol with elevated triglycerides? Notes: has good numbers?? 3.?Graves disease? Notes: being treated by dr patel?? 4.?Labile hypertension? Notes: well controlled, will contiue to monitor?? 5.?REEMA (obstructive sleep ap abby)? Notes: never got studied. but says that if she sleeps on side doesn't happer?? 6.?Colon cancer screening?LAB: Occult Blood, Stool, Guaiac?Negative ? Value Reference Range ?Occult Blood, Stool, Guaiac Neg Notes: guaiac negative??7.?Depression screening? Notes: negative screen?? * Procedure Codes:?96093 TEST FOR BLOOD, FECES * Follow Up:?1 Year * * Sign off status: Completed true * Provider:?Matt Gomes MD Date:?0 07/10/2024 Generated for Julito waters/Skylar/eTthiensmitting on:?12/05/2024 12:45 PM EST History and Physical Notes * [...] had two or more falls in the year?: No Communication Needs Communication Needs Does the patient have a hearing impairment: No Does the patient have a vision impairmen t?: Yes ?If yes, what is the vision impairment?: Glasses Does the patient have a cognition impair ment?: No Examination Category Sub-Category Detail Notes Category Not es General Examination GENERAL APPEARANCE: well dev eloped, well nourished, in no acute distress HEAD: normocephalic, atrau matic EYES: pupils equal, round, reactive to light and accommodation, sclera non- icteric EARS: normal THROAT: clear NECK/THYROID: neck supple, [...] exam intact SKIN: warm and dry, no misty picious lesions EXTREMITIES: no clubbing, cyanosi s, or edema has spider veins BREASTS: No mass, no lump RECTAL EXAM: no external hemorrho ids, stool guaiac negative, mass palpable FEMALE GENITOURINARY: done by application dba ORAL CAVITY: mucosa moist
--- OUTSIDE RECORDS SUMMARY | 2024-12-05 12:47 | XMS_ITS ---
Author Organization Matt Gomes MD Address [address] [place], [place] [id number] Care Team Providers Care Air Conditioning Technician Name Role Phone Matt Gomes Primary Care Provider [phone] REASON FOR VISIT patient wants to talk [...] Gomes MD [address] [place], [place] [phone] 09/08/2024 Matt Gomes Left Achilles tendinitis M76.62 [...] Follow Up: 3 Months, Reason: Provider Name:Matt sam, 12/08/2024 10:00:00 AM, [address] [place] [address], [address], [place], [place], [id number], Provider Name:Matt sam, 07/05/2025 08:00:00 AM, [address] [place] [address], [address], [place], [place], [phone], Provider Name:Matt sam, 07/12/2025 02:30:00 PM, [address] [place] [address], [address], [place], [place], [phone], Progress Notes * Eulalia CALIXTO ADOB:[birth year] (64 yo F)Acc No.[id number]:09/08/2024 Progress Notes Patient:?Eulalia Calixto A Provider:?Matt Gomes MD :1960???Age:64 Y???Sex:Female D ate:09/08/2024 Address:[address] [place], [place] [phone] Subjective: * Chief Complaints: * ???Patient wants to talk to provider before having venogram doneLeft foot issue * HPI: ???Symptom(s):? patient is a 64 yo female here with complaint of one week ago got pain in left calf and then it moved down her leg to the achilles. just annoying. moving quickly got more pain in achilles. took 2 advil anvil and it went away. 2 nights ago the entire area was aching. * ROS:?General/Constitutional:?Patient denies?chills, fatigue, fever, headache.?ENT:?Patient denies?decreased sense of smell, any loss of taste, sore throat.?Musculoskeletal:?Patient denies?muscle aches.?Peripheral Vascular:?Patient denies?red and blue toes.?having brittaney minimal pain. * Medical History:? * Surgical History:? * Hospitalization/Major Diagno stic Procedure:? * Medications:?TakingmethIMAzo le 5 MG Tablet 31tablet Orally Once a dayTaking methIMAzole 5 MG Tablet 31tablet Orally Once a day Objective: * Vitals:?Ht: 61, BP:150/90. * Examination: ???General Examination: ?GENERAL APPEARANCE:?in no acute distress.?EXTREMITIES:?minimal tenderness over achilles.? Assessment: * Assessment: 1.?Left Achilles tendinitis - M76.62 (Primary)?2.?Labile hypertension - I10? Plan: * Treatment: 2.?Labile hypertension? Notes: elevated today, will cntinue to monitor and will contiue current regiment?? * Procedure Codes:? * Follow Up:?3 Months * * Sign off status: Completed true * Provider:?Matt Gomes MD Date:?11/08/2023 Generated for Julito waters/Skylar/Brookssmitting on:?12/05/2024 12:46 PM EST History and Physical Notes * [...]
[2024-12-05 13:47] LABS: Free T4 (Free Thyroxine) 0.94 ng/dL (0.71-1.85); Thyroid Stimulating Hormone 0.38 uIU/mL (0.32-4.0)
== END 2024-12-05 11:34 | disposition home or self-care (01) ==
LOC: HO.10HDL 11:33
PROVIDERS: Visit Provider Student in an Organized Health Care Education/Training Program
DX: E05.90 Thyrotoxicosis, unspecified without thyrotoxic crisis or storm (principal)
CPT/HCPCS: 36415; 84439; 84443

== ENCOUNTER 2024-12-12 10:58 | Outpatient (AMB) | payer MEDICARE, SELFPAY ==
[2024-12-12 11:03] VITALS: BP 158/90; PULSE 83; O2SAT 97; BMI 24.8
--- NOTE | 2024-12-12 11:03 | MHC.OFFVIS ---
Vital Signs 12/12/24 11:03 Height 5 ft Weight 126 lb 15.78 oz BMI 24.8 BP 158/90 H Blood Pressure Location Rt brachial Position Sitting Pulse 83 Pulse Source Pulse Oximeter Pulse Oximetry (%) 97 Oxygen Delivery Method Room Air Intake Visit Reasons: f/u hyperthyroidism due to graves Intake Note: Patient present today for Hyperthyroidism follow up visit. Scientific Informatics Project Leader Required: No Accompanied by: Self / Same As Patient Allergies cephalexin Allergy (Unknown, Verified 12/12/24 11:08) itchy doxycycline [DOXYCYCLINE] Allergy (Unknown, Verified 12/12/24 11:08) ?RXN- TESTED + erythromycin base [ERYTHROMYCIN BASE] Allergy (Unknown, Verified 12/12/24 11:08) ITCHY HIVES levofloxacin [From LEVAQUIN] Allergy (Unknown, Verified 12/12/24 11:08) ITCH HIVES penicillin V Allergy (Unknown, Verified 12/12/24 11:08) unknown Penicillins [PENICILLINS] Allergy (Unknown, Verified 12/12/24 11:08) + WITH ALLERGY TESTING strawberry [STRAWBERRY] Allergy (Unknown, Verified 12/12/24 11:08) ITCHY - HIVES Sulfa (Sulfonamide Antibiotics) [SULFA(SULFONAMIDE ANTIBIOTICS)] Allergy (Unknown, Verified 12/12/24 11:08) RASH tetracycline [TETRACYCLINE] Allergy (Unknown, Verified 12/12/24 11:08) TESTED + WITH ALLERGY WORK - UP Doxycycline (Rosacea) Allergy (Unknown, Uncoded 12/12/24 11:08) itchy Erythromycin Allergy (Unknown, Uncoded 12/12/24 11:08) itchy Medication List - Last Reconciled 12/12/24 by Dada Simmons MD methimazole 10 mg PO DAILY multivitamin 1 tab PO DAILY vitamin E mixed units PO HPI Comments Details: This 64-year-old white female previously seen by myself for hyperthyroidism due to Graves disease. Currently on methimazole 10 mg q.d. no symptoms of hyperthyroidism or hypothyroidism. Thyroid ultrasound showed a subcentimeter left midpole nodule [facility] Medical History Hyperthyroidism Light sensitivity Migraine headache Graves disease Surgical History Tubal ligation status [place] teeth extracted Hx of appendectomy Family History Sister Endometrial cancer Mother Lung cancer Social History Household Members: Spouse Housing: House Alcohol intake: never Patient Tobacco Use Status: Never used Tobacco Current occupational status: unemployed Sexual orientation: Straight/Heterosexual Gender identity: Female Female Reproductive History Menstrual Age of Menarche: 9 Physical Exam Vital Signs: Last Vital Signs Pulse 83 12/12/24 11:03 BP 158/90 H 12/12/24 11:03 Pulse Ox 97 12/12/24 11:03 Oxygen Delivery Method Room Air 12/12/24 11:03 BMI result Body Mass Index 24.8 Const Other: Thyroid gland is feels top-normal in size and feels nodulular to palpation. There are no thyroid nodules palpated. Reflexes 2+ DTR Assessment & Plan Assessment & Plan (1) Hyperthyroidism: Code(s): E0 - Thyrotoxicosis, unspecified without thyrotoxic crisis or storm Category: Medical Plan: This is a 64-year-old female with a history of mild hyperthyroidism possibly due to Graves disease. She appears to be clinically and biochemically euthyroid On 10 mg of methimazole . 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 We discussed options for therapy including continuation of methimazole versus radioactive iodine versus surgery and the risks and benefits of each the patient is wanting to stay on the methimazole for now. We will repeat thyroid ultrasound about 1-2 years time Orders: Orders Free T4 (Free Thyroxine) 5 Months E05.90 - Thyrotoxicosis, unspecified without thyrotoxic crisis or storm Triiodothyronine T3 Free 5 Months E05.90 - Thyrotoxicosis, unspecified without thyrotoxic crisis or storm Thyroid Stimulating Hormone 5 Months E05.90 - Thyrotoxicosis, unspecified without thyrotoxic crisis or storm Coding Level of Care Code Est Pt Level 3 (43351) Diagnoses Hyperthyroidism E090
== END 2024-12-12 11:38 | disposition home or self-care (01) ==
PROVIDERS: PCP Internal Medicine; Visit Provider Internal Medicine Endocrinology, Diabetes & Metabolism
DX: E05.90 Thyrotoxicosis, unspecified without thyrotoxic crisis or storm (principal)
CPT/HCPCS: 99213

== ENCOUNTER → 2024-12-12 10:58 | Outpatient (BNVA) | payer MEDICARE, SELFPAY | PROVIDERS: PCP Internal Medicine; Visit Provider Internal Medicine Endocrinology, Diabetes & Metabolism | DX: E05.00 Thyrotoxicosis with diffuse goiter without thyrotoxic crisis or storm (principal); Z79.899 Other long term (current) drug therapy | CPT/HCPCS: 99212 ==

== ENCOUNTER 2025-03-27 13:31 | Outpatient (AMB) | payer MEDICARE, SELFPAY ==
--- NOTE | 2025-03-27 13:38 | A.OFFVIS_ITS ---
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 Required: No Information Interpreted: non-clinical & clinical Placer Miner: Placer Miner Present (Yolanda RIVERA) Accompanied by: Self / Same As Patient Allergies cephalexin Allergy (Unknown, Verified 03/27/25 13:45) itchy doxycycline [DOXYCYCLINE] Allergy (Unknown, Verified 03/27/25 13:45) ?RXN- TESTED + erythromycin base [ERYTHROMYCIN BASE] Allergy (Unknown, Verified 03/27/25 13:45) ITCHY HIVES levofloxacin [From LEVAQUIN] Allergy (Unknown, Verified 03/27/25 13:45) ITCH HIVES penicillin V Allergy (Unknown, Verified 03/27/25 13:45) unknown Penicillins [PENICILLINS] Allergy (Unknown, Verified 03/27/25 13:45) + WITH ALLERGY TESTING strawberry [STRAWBERRY] Allergy (Unknown, Verified 03/27/25 13:45) ITCHY - HIVES Sulfa (Sulfonamide Antibiotics) [SULFA(SULFONAMIDE ANTIBIOTICS)] Allergy (Unknown, Verified 03/27/25 13:45) RASH tetracycline [TETRACYCLINE] Allergy (Unknown, Verified 03/27/25 13:45) TESTED + WITH ALLERGY WORK - UP Doxycycline (Rosacea) Allergy (Unknown, Uncoded 03/27/25 13:45) itchy Erythromycin Allergy (Unknown, Uncoded 03/27/25 13:45) itchy Post menopausal: Yes HPI Comments Details: Presenting for annual exam. Complaining of leakage of your over the last many years and wearing a pad most of the time Last Pap/HPV was negative in 09/06, previous Pap was negative in 2014 and 2012 no HPV done Last Mammogram was many years ago Last Colonoscopy was in 2017, the recommendation according to the patient was to repeat in 10 years Last screening DEXA scan was at [facility] were then 2 years ago [facility] Medical History Hyperthyroidism Light sensitivity Migraine headache Graves disease Surgical History Tubal ligation status Amelia teeth extracted Hx of appendectomy Family History Sister Endometrial cancer Mother Lung cancer Social History Household Members: Spouse Housing: House Alcohol intake: never Patient Tobacco Use Status: Never used Tobacco Current occupational status: unemployed Sexual orientation: Straight/Heterosexual Gender identity: Female Female Reproductive History Menstrual Age of Menarche: 9 Date of last pap smear: 09/09/20 Review of Systems Const All systems reviewed & are unremarkable except as noted in HPI and below Card Reports as per HPI Resp Reports as per HPI GI Reports as per HPI and Reports no additional complaints Reports as per HPI Physical Exam Const General: cooperative, healthy appearing and comfortable Chest Chest palpation & inspection: normal inspection of the chest and normal palpation of entire chest wall Breast/axilla inspection: normal inspection of the breasts and normal inspection of the axillae Breast/axilla palpation: normal palpation of the breasts, normal palpation of the axillae and no axillary lymphadenopathy Resp Effort & Inspection: normal respiratory effort Auscultation: clear to auscultation bilaterally Percussion: percussion normal Cardio Palpation: normal PMI Rate: regular rate Rhythm: regular rhythm Heart sounds: no murmurs and no rubs Peripheral pulses: Peripheral pulses 2+ throughout GI Inspection: Yes normal to inspection Palpation (GI): Soft to palpation, nontender, no guarding, not rigid and No hepatosplenomegaly present Percussion: Yes normal to percussion Auscultation: normal bowel sounds Rectal Exam - Female: deferred General: Yes bladder normal to palpation External Female Exam: No lesion Speculum Exam - Vagina: normal appearance of the vagina, normal palpation, normal vaginal discharge and not erythematous Speculum Exam - Cervix: normal appearance of the cervix and normal palpation Bimanual exam- vagina & uterus: normal bimanual exam, normal palpation, uterine size normal, bladder normal to palpation, consistency normal and normal palpation Bimanual Exam- Adnexa, other: normal adnexae, no masses and no tenderness Assessment & Plan Assessment & Plan (1) Well woman exam: Code(s): Z01.419 - Encounter for gynecological examination (general) (routine) without abnormal findings Category: Medical Plan: Co testing not indicated since the patient 's age is above 65 with no history of abnormal Pap smears last 25 years, adequately screen for the last 10 years with no history of immunosuppression. Counseled the patient about the recommended dietary allowance of 1200 mg of Calcium & 800 IU of vitamin D. Counseled the patient about screening Mammogram detection rate, sensitivity, specificity false negative false-positive rate, the patient would like to hold off ordering mammogram and think about it and get back to us Will order DEXA scan . The patient was instructed to perform monthly self-breast exams and to schedule a 2 week DEXA scan follow-up appointment and an annual exam in a year; All questions answered and the patient verbalized understanding. (2) Urine incontinence: Code(s): R32 - Unspecified urinary incontinence Category: Medical Plan: Discussed with the patient the different types of Urine incontinence, stress urinary incontinence, intrinsic sphincter deficiency, overactive bladder and its work up. We will refer to Urology. All questions answered, the patient verbalized understanding. Instructed the patient to call our office back in case a referral appointment is not scheduled, missed or canceled so that we will assist on rescheduling another appointment, the patient verbalized understanding agreed with the plan. Orders: Orders Pap Smear Today Z01.419 - Encounter for gynecological examination (general) (routine) without abnormal findings XR DEXA axial skeleton Today Z78.0 - Asymptomatic menopausal state HPV High risk Today Z01.419 - Encounter for gynecological examination (general) (routine) without abnormal findings Referrals Urology Referral R32 - Unspecified urinary incontinence Coding Level of Care Code Est Pt Prev Care >65y(01353) Diagnoses Well woman exam Z01.419 Urine incontinence R32
[2025-03-27 13:44] VITALS: BP 124/76; BMI 23.0
--- OUTSIDE RECORDS SUMMARY | 2025-03-27 15:58 | XMS_ITS | Patient Health Record ---
Author Organization Matt Gomes MD Address [address] [place], [place] [id number] Care Team Providers Care Chin Strap Maker Name Role Phone Matt Gomes Primary Care Provider Allergies Allergen (clinical drug ingredient) Drug/Non Drug Allergy documented on EMR Reaction Allergy Type Onset Date Status tetracycline tetracycline (uncoded) itchy Allergy Active erythromycin erythromycin (uncoded) itchy Allergy Active levaquin (uncoded) itchy Allergy A ctive penicillin (uncoded) hives Allergy Active sulfamethoxazole / trimethoprim bactrim (uncoded) rash Allergy Active doxycycline Doxycycline itchy Drug Allergy Act patrick keflex (uncoded) itchy Allergy Act patrick Results Component Value Reference Range Notes Complete Blood Count Auto Di ff Reviewed date:07/03/2024 05:04:43 PM Interpretation: Performing Lab:[facility], [address] [place] [phone] Notes/Report: White Blood Count 5.9 4.8-10.8 X10*3/uL [...] NRBC Abs Auto 0.000 0.0-0.012 X10*3/uL Comprehensive [place]. Panel Fa st Reviewed date:07/03/2024 12:53:26 PM Interpretation: Performing Lab:[facility], [address] [place] [phone] Notes/Report: Sodium 142 135-145 mmol/L Potassium 4.0 3.3-5.1 mmol/L Chloride 107 96-108 mmol/L Carbon Dioxide 28 22-29 mmol/L Anion Gap 11 12-20 Blood Urea Nitrogen 14 9-16 mg/dL Creatinine 0.97 0.5-1.4 mg/dL Estimated Glomerular Filt Rate 58 NOTE: For -[place] individuals, multiply the result by 1.210. Chronic [...] Panel Reviewed date:07/03/2024 12:44:09 PM Interpretation: Performing Lab:[facility], [address] [place] [phone] Notes/Report: Triglycerides 119 <150 mg/dL Desirable Triglyceride: [...] t Reviewed date:07/03/2024 05:04:26 PM Interpretation: Performing Lab:[facility], [address] [place] [phone] Notes/Report: Urine, Clean Catch Color Urine Yellow Appearance Urine Cloudy PH 7.5 5.0-9.0 Glucose Urine UA Negative Negative mg/dL Urine Blood Negative Negative Specific [place] - Urine 1.015 1.005-1.025 Urine Protein Negative Neg-Trace mg/dL Urine Ketones Negative Negative mg/dL Nitrite Urine Negative Negative Leukocyte Esterase Urine Negative Negative RBC Urine 0-2 0-2 /HPF WBC Urine 0-5 0-5 /HPF Squamous Epithelial Cell Urine 0-2 0-2 /HPF Bacteria Urine None Seen None Seen Hyaline Casts Urine 0-2 0-2 /LPF Occult Blood, Stool, Guaiac Reviewed date:07/10/2024 01:40:30 PM Interpretation:Negative Performing Lab: Notes/Report: Negative Occult Blood, Stool, Guaiac Neg US thyroid Reviewed date:07/31/2024 10:52:40 AM Interpretation: Performing Lab: Notes/Report: [address] [address] Ultrasound Report Signed Patient: Eulalia Brock MR#: [id number] : 1960 Acct:[id number] Age/Sex: 63 / F ADM Date: 06/20/24 Loc: HO.US Attending Dr: Dada Patel MD Ordering Physician: Dada Patel MD Date of Service: 06/20/24 Procedure(s): US thyroid Accession Number(s): [id number] cc: Matt Gomes MD; Dada Patel MD EXAMINATION: US THYROID CLINICAL INFORMATION: Thyrotoxicosis, unspecified without thyrotoxic crisis or storm. COMPARISON: None available. TECHNIQUE: Linear transducer grayscale and color Doppler examination with attention to the region of the thyroid. FINDINGS: SIZE: Measurements of the thyroid lobes and nodules are given in sagittal, anteroposterior and transverse dimensions respectively. Right Thyroid Lobe: 5.0 x 1.5 x 1.8 cm, volume 7.1 mL. Parenchyma: The gland echotexture is heterogeneous. Thyroid vascularity is increased. Left Thyroid Lobe: 4.1 x 1.4 x 1.6 cm, volume 4.8 mL. Parenchyma: The gland echotexture is heterogeneous. Thyroid vascularity is increased. Isthmus: 0.4 cm in maximum AP dimension. Estimated total number of nodules greater than or equal to 1 cm: 1. Hospital Laboratory Technician nodules are described as follows: 1. Location: Left mid. Size: 1.1 x 0.9 x 0.7 cm, volume 0.4 mL. Nodule characteristics: Composition: Solid (2). Echogenicity: Hyperechoic (1). Shape: Taller than wide (3). Margins: Smooth (0). Echogenic Foci: None (0). ACR TI-RADS total points: 6 ACR TI-RADS category: 4 NODES: A small 0.6 cm isoechoic soft tissue nodule inferior to the right thyroid gland which may reflect a small parathyroid adenoma in the appropriate clinical setting versus a small nonenlarged lymph node. US/US thyroid IMPRESSION: Heterogeneous hypervascular thyroid which can be seen in the setting of thyroiditis. A 1.1 cm TR 4 left thyroid nodule which meets criteria for follow-up ultrasound at 1, 2, 3, and 5 years. A small 0.6 cm isoechoic soft tissue nodule inferior to the right thyroid gland which may reflect a small parathyroid adenoma in the appropriate clinical setting versus a small nonenlarged lymph node. ACR TI-RADS RECOMMENDATION REFERENCE: Ultrasound-guided fine-needle aspiration, followup ultrasound, no further follow up. * TR1 (0 point) and TR2 (2 points): No FNA or follow up. * TR3 (3 points): FNA if more than or equal to 2.5 cm in maximum dimension, followup ultrasound in 1, 3 and 5 years if 1.5 to 2.4 cm in maximum dimension. * TR4 (4-6 points): FNA if more than or equal to 1.5 cm in maximum dimension, followup ultrasound in 1, 2, 3 and 5 years if 1 to 1.4 cm in maximum dimension. * TR5 (more than or equal to 7 points): FNA if more than or equal to 1 cm in maximum dimension, followup ultrasound every year for 5 years if 0.5 to 0.9 cm in maximum dimension. * TR3, TR4 or TR5 nodules that are below the size threshold for followup receive no follow up. Electronically signed by: Beatriz Bui MD 07/10/2024 05:32 PM EDT Dictated By: Beatriz Bui MD Signed By: <Electronically signed by Beatriz Bui MD in OV> 07/10/24 1732 DD/ 1431 TD/TT: 06/20/24 1443 Carding Supervisor: [address] [address] Ultrasound Report Signed Patient: Everett Brock MR#: [id number] : 1960 Acct:[id number] Age/Sex: 63 / F ADM Date: 06/20/24 Loc: .US Attending Dr: Dada Patel MD Ordering Physician: Dada Patel MD Date of Service: 06/20/24 Procedure(s): US thyroid Accession Number(s): [id number] cc: Matt Gomes MD; Dada Patel MD EXAMINATION: US THYROID CLINICAL INFORMATION: Thyrotoxicosis, unspecified without thyrotoxic crisis or storm. COMPARISON: None available. TECHNIQUE: Linear transducer grayscale and color Doppler examination with attention to the reg ion of the thyroid. FINDINGS: SIZE: Measurements o f the thyroid lobes and nodules are given in sagittal, anteroposterior and transverse dimensions respectively. Right Thyroid Lobe: 5.0 x 1.5 x 1.8 cm, volume 7.1 mL. Parenchyma: The glan d echotexture is heterogeneous. Thyroid vascularity is increased. Left Thyroid Lobe: 4 .1 x 1.4 x 1.6 cm, volume 4.8 mL. Parenchyma: The glan d echotexture is heterogeneous. Thyroid vascularity is increased. Isthmus: 0.4 cm in maximum AP dimension. Estimated total numb er of nodules greater than or equal to 1 cm: 1. Hospital Laboratory Technician nodul es are described as follows: 1. Location: Left mid. Size: 1.1 x 0.9 x 0. 7 cm, volume 0.4 mL. Nodule characteristics: Composition: Solid (2). Echogenicity: Hyperechoic (1). Shape: Taller than w fabian (3). Margins: Smooth (0). Echogenic Foci: None (0). ACR TI-RADS total points: 6 ACR TI-RADS category: 4 NODES: A small 0.6 c m isoechoic soft tissue nodule inferior to the right thyroid gland which may reflect a small parathyroid adenoma in the appropriate clinical setting versus a small nonenlarged lymph node. US/US thyroid IMPRESSION: Heterogeneous hypervascular thyroid which can be seen in the setting of thyroiditis. A 1.1 cm TR 4 left thyroid nodule which meets criteria for follow-up ultrasound at 1, 2, 3, and 5 years. A small 0.6 cm isoechoic soft tissue nodule inferior to the right thyroid gland which may reflect a small parathyroid adenoma in the appropriate clinical setting versus a small nonenlarged lymph node. ACR TI-RADS RECOMMENDATION REFERENCE: Ultrasound-guided fine-needle aspiration, followup ultrasound, no further follow up. * TR1 (0 point) and TR2 (2 points): No FNA or follow up. * TR3 (3 points): FN A if more than or equal to 2.5 cm in maximum dimension, followup ultrasound in 1, 3 and 5 years if 1.5 to 2.4 cm in maximum dimension. * TR4 (4-6 points): FNA if more than or equal to 1.5 cm in maximum dimension, followup ultrasound in 1, 2, 3 and 5 years if 1 to 1.4 cm in maximum dimension. * TR5 (more than or equal to 7 points): FNA if more than or equal to 1 cm in maximum dimension, followup ultrasound every year for 5 years if 0.5 to 0.9 cm in maximum dimension. * TR3, TR4 or TR5 nodules that are below the size threshold for followup receive no follow up. Electronically arleen d by: Beatriz Bui MD 07/10/2024 05:32 PM EDT Dictated By: Beatriz Bui MD Signed By: <Electronically signed by Beatriz Bui MD in OV> 07/10/24 1732 DD/ 1431 TD/TT: 06/20/24 1443 Carding Supervisor: Reason For Referral No Information Medications Medication SIG (Take, Route, Fr equency, Duration) Notes Start Date End Date Status methIMAzole 5 MG 31tablet Orally Once a day Active Immunizations Vaccine Route Administration Date Status Comme nts DECLINED, FLU Unknown 08/14/2013 Administered TDaP IM Intramuscular 08/14/2013 Administered Fluarix Quadrivalent IM Intramuscular 07/24/2019 Administe red Tetanus Unknown 08/14/2013 Administered SARS-COV-2 Pfizer Unknown 01/09/2021 Administered SARS-COV-2 Pfizer Unknown 01/30/2021 Administered SARS-COV-2 Pfizer Unknown 09/25/2021 Administered Flu Vaccine Unknown 08/31/2014 Refused Fluarix Quadrivalent Unknown 07/05/2015 Refused Fluarix Quadrivalent Unknown 07/19/2018 Refused PPSV23 (Pnemovax) Unknown 01/17/2019 Refused Fluarix Quadrivalent Unknown 07/20/2019 Refused Fluarix Quadrivalent Unknown 05/28/2020 Refused PPSV23 (Pnemovax) Unknown 05/28/2020 Refused Fluarix Quadrivalent Unknown 10/30/2021 Refused Fluarix Quadrivalent Unknown 06/29/2022 Refused Fluarix Quadrivalent - 150 Unknown 07/03/2024 Refused Tetanus Unknown 08/14/2013 Pending Social History Tobacco Use: Social History Observation [...] ast year? No Points 0 Interpretation Negative Problems Problem Type SNOMED Code ICD Code Onset Dates Problem Status W/U Status Risk Notes Problem 941784390 Lumbar disc disease (M51.9) Active confirmed Problem 356838655 Rosacea (L71.9) Active confirmed Problem 75995485 Labile hypertension (I10) Active confirmed Problem 532009987 Graves disease (E05.00) Active confirmed Problem 061010226 Elevated cholesterol with elevated triglycerides (E78.2) Active confirmed Problem 771329277 Menopause (Z78.0) Active confirmed Problem 646105287 Schatzki's ring (K22.2) Active confirmed Problem 77679504 Elevated blood sugar (R73.9) Active confirmed Problem 54148716 Sciatica of righ t side (M54.31) Active confirmed Problem 94020723 Blepharitis (H01.009) Active confirmed Problem 815809891 [facility] coder um of right upper eyelid (H00.011) Active confirmed Problem 68151991 Bilateral carpal tunnel syndrome (G56.03) Active confirmed Problem 04360337 REEMA (obstructive sleep apnea) (G47.33) Active confirmed Problem Osteopenia determined by x-ray (M85.80) Active confirmed Vital Signs Blood pressure diastolic 90 mm Hg 09/08/2024 Height 61 in 09/08/2024 Blood pressure systolic 150 mm Hg 09/08/2024 Weight 127 lbs 07/10/2024 weight is up 3 pounds since 02-07-24 BMI 23.99 kg/m2 07/10/2024 weight is up 3 pounds since 02-07-24 Encounters Encounter Location Date Provider Diagnosis Matt Gomes MD [address] [place], [place] [phone] 07/03/2024 Matt Gomes Blood tests for routine general physical examination Z00.00 ; Labile hypertension I10 ; Graves disease E05.00 and Elevated cholesterol with elevated triglycerides E78.2 Matt Gomes MD [address] [place] [id number] 07/10/2024 Matt Gomes Elevated cholesterol with elevated triglycerides E78.2 ; Annual physical exam Z00.00 ; Graves disease E05.00 ; Labile hypertension I10 ; REEMA (obstructive sleep apnea) G47.33 ; Colon cancer screening Z12.11 and Depression screening Z13.31 Matt Gomes MD [address] [place] [id number] 09/08/2024 Matt Gomes Left Achilles tendinitis M76.62 and Labile hypertension I10 Matt Gomes MD [address] [place] [id number] 09/07/2024 Matt Gomes Achilles tendinitis of left lower extremity M76.62 Assessments Encounter Date Diagnosis (ICD Code) Assessment Notes Treatment Notes Treatment Clinical Notes Section Notes 07/03/2024 Blood tests for routine general physical examination (ICD-10 - Z00.00) 07/03/2024 Labile hypertension (ICD-10 - I10) 07/10/2024 Elevated cholesterol with elevated triglycerides (ICD-10 - E78.2) has good numbers 07/10/2024 Annual physical exam (ICD-10 - Z00.00) labs reviewed and discussed with patient 09/08/2024 Left Achilles tendinitis (ICD-10 - M76.62) use nsaids as needed 07/03/2024 Graves disease (ICD-10 - E05.00) 07/10/2024 Graves disease (ICD-10 - E05.00) being treated by dr patel 09/08/2024 Labile hypertension (ICD-10 - I10) elevated today, will cntinue to monitor and will contiue current regiment 09/07/2024 Achilles tendinitis of left lower extremity (ICD-10 - M76.62) 07/03/2024 Elevated cholesterol with elevated triglycerides (ICD-10 - E78.2) 07/10/2024 Labile hypertension (ICD-10 - I10) well controlled, will contiue to monitor 07/10/2024 REEMA (obstructive sleep apnea) (ICD-10 - G47.33) never got studied. but says that if she sleeps on side doesn't happer 07/10/2024 Colon cancer screening (ICD-10 - Z12.11) guaiac negative 07/10/2024 Depression screening (ICD-10 - Z13.31) negative screen Plan Of Treatment Pending Test Test Name Order Date Electrocardiogram (EKG) 04/24/2016 XR GI SERIES 09/29/2022 XR foot RT 2V 03/10/2021 Future Test Test Name Order Date BONE DENSITY DEXA 09/03/2021 Next Appt Details Provider Name:Matt Flannery ier, 07/05/2025 08:00:00 AM, [address] [place] [address], [address], [place], [place], [phone], Provider Name:Matt Flannery ier, 07/12/2025 02:30:00 PM, [address] [place] [address], [address], [place], [place], [phone], Insurance Providers Payer Name Payer Address Payer Phone Subscriber Number Group Number Insured Name Patient Relationship to Insured Coverage Start Date Coverage End Date [facility] MEDICARE ADVANTAGE PLAN [address] [place] [phone] [id number] Eulalia Brock Self - patient is the insured Medical (General) History Medical History 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 05/11/14, mammo refused 2020 still refusi ng 05/11/14 to schedule colonosc opy. is going to try again; colonoscopy done 10/01/17 w/Dr. Camarena - repeat 10 years IS ABLE TO TOLERATE MACROBID AND CIPRO is going jul 2017 Do yearly TSH for Graves Disease
== END 2025-03-27 14:15 | disposition home or self-care (01) ==
LOC: HO.HWS 13:31
PROVIDERS: PCP Internal Medicine; Visit Provider Obstetrics & Gynecology
DX: Z01.419 Encounter for gynecological examination (general) (routine) without abnormal findings (principal); R32 Unspecified urinary incontinence
CPT/HCPCS: 99397; 99459

== ENCOUNTER 2025-03-27 13:31 | Outpatient (REF) | payer MEDICARE, SELFPAY ==
[2025-04-02 11:50] LABS: HPV Genotype 16 Negative (Negative); HPV Genotype 18 Negative (Negative); HPV High Risk Negative (Negative)
== END 2025-03-27 13:32 | disposition home or self-care (01) ==
LOC: HO.LNP 13:31
PROVIDERS: PCP Internal Medicine; Visit Provider Obstetrics & Gynecology
DX: Z01.419 Encounter for gynecological examination (general) (routine) without abnormal findings (principal)
CPT/HCPCS: 87626; 88175; 99397; 99459

== ENCOUNTER 2025-04-27 11:11 | Outpatient (REF) | payer MEDICARE, SELFPAY ==
--- NOTE | ~2025-04-27 | MM_ITS ---
EXAMINATION: DXA BONE DENSITY AXIAL HISTORY: Z78.0 - Asymptomatic menopausal state TECHNIQUE: Nativeflow Dual energy absorptiometry (DEXA) of the lumbar spine, total left hip, and femoral neck was performed. COMPARISON: There are no prior studies for comparison. FINDINGS: The bone mineral density of the lumbar spine is 1.043 g/cm2, corresponding to a T-score of -1.1, and a Z-score of 0.9. This is indicative of osteopenia. The bone mineral density of the left total hip is 0.906 g/cm2, corresponding to a T-score of -0.8, and a Z-score of 0.8. This is indicative of normal bone mineral density. The bone mineral density of the left femoral neck is 0.823 g/cm2, corresponding to a T-score of -1.5, and a Z-score of 0.3. This is indicative of osteopenia. FRACTURE RISK: The FRAX index suggests a risk of major osteoporotic fracture of 8.7%, and of hip fracture 1.1%. MM/XR DEXA axial skeleton IMPRESSION: Based on bone mineral density, and according to World Health Organization (WHO) criteria, the diagnosis is consistent with osteopenia. Statistically, 68% of repeat scans fall within 1 SD (+/- 0.010 g/cm2 for AP spine L1-L4) and 1 SD (+/- 0.012 g/cm2 for femur total) FRAX is a trademark of the [employer]'s [employer] Metabolic Bone Disease, a World Health Organization (WHO) Collaborating Center. Electronically signed by: Dada Mcclellan MD 04/27/2025 12:58 PM EDT
--- OUTSIDE RECORDS SUMMARY | 2025-04-27 11:49 | XMS_ITS | Patient Health Record ---
Author Organization [facility] Address [address] [place] [address] Care Team Providers Care Supervisor Airplane Flight Attendant Name Role Phone Matt Gomes MD Primary Care Provider Dada Mendez [phone] Allergies Allergen (clinical drug ingredient) Drug/Non Drug Allergy documented on EMR Reaction Allergy Type Onset Date Status penicillamine Penicillamine Unknown Drug Allergy Active Levaquin Unknown Drug Allergy Active erythromycin Erythromycin Unknown Drug Allergy A ctive doxycycline Doxycycline Hyclate Unknown Drug Allergy Active cephalexin Cephalexin Unknown Drug Allergy Activ e tetracycline Tetracycline HCl Unknown Drug Allergy Active Sulfacet-R Unknown Drug Allergy Active Reason For Referral No Information Medications Medication SIG (Take, Route, Fr equency, Duration) Notes Start Date End Date Status Advil prn Active Loratadine prn Active Fish Oil PRN Active Excedrin Migraine prn Ac tive Multivitamin Active Calcium PRN Active Problems Problem Type SNOMED Code ICD Code Onset Dates Problem Status W/U Status Risk Notes Problem 123198098 Encounter for screening for malignant neoplasm of colon (Z12.11) Active confirmed Problem 35705237 Pharyngoesophage al dysphagia (R13.14) Active confirmed Plan Of Treatment Future Test Test Name Order Date COLONOSCOPY 10/26/2012 UPPER GI ENDOSCOPY 08/12/2017 COLONOSCOPY 08/12/2017 Insurance Providers Payer Name Payer Address Payer Phone Subscriber Number Group Number Insured Name Patient Relationship to Insured Coverage Start Date Coverage End Date [facility] [address] [place], [place] [phone] [id number] MARILYKAEL GUZMÁN Self - patient is the insured Medical (General) History Medical History History ICD Code Colonosocpy 12-11-2002-negative except in t/ext hemorrhoids Graves' Disease Premature heartbeat--of no clinical sign ificance-on no Rx for it Denies OR,DM,CVA,Lung disease,renal dise ase 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
--- OUTSIDE RECORDS SUMMARY | 2025-04-27 11:49 | XMS_ITS | Patient Health Record ---
Author Organization Matt Gomes MD Address [address] [place], [place] [address] Care Team Providers Care Heavy Machinery Operator Name Role Phone Matt Gomes Primary Care [...] ff Reviewed date:07/03/2024 05:04:43 PM Interpretation: Performing Lab:[facility], [address] [place] [phone] Notes/Report: White Blood Count 5.9 4.8-10.8 X10*3/uL [...] NRBC Abs Auto 0.000 0.0-0.012 X10*3/uL Comprehensive [place]. Panel Fa st Reviewed date:07/03/2024 12:53:26 PM Interpretation: Performing Lab:[facility], [address] [place] [phone] Notes/Report: Sodium 142 135-145 mmol/L Potassium 4.0 3.3-5.1 mmol/L Chloride 107 96-108 mmol/L Carbon Dioxide 28 22-29 mmol/L Anion Gap 11 12-20 Blood Urea Nitrogen 14 9-16 mg/dL Creatinine 0.97 0.5-1.4 mg/dL Estimated Glomerular Filt Rate 58 NOTE: For -Dutch individuals, multiply the result by 1.210. Chronic [...] Panel Reviewed date:07/03/2024 12:44:09 PM Interpretation: Performing Lab:[facility], [address] [place] [phone] Notes/Report: Triglycerides 119 <150 mg/dL Desirable Triglyceride: [...] t Reviewed date:07/03/2024 05:04:26 PM Interpretation: Performing Lab:[facility], [address] [place] [phone] Notes/Report: Urine, Clean Catch Color Urine Yellow Appearance Urine Cloudy PH 7.5 5.0-9.0 Glucose Urine UA Negative Negative mg/dL Urine Blood Negative Negative Specific Graham - Urine 1.015 1.005-1.025 Urine Protein Negative [...] date:07/31/2024 10:52:40 AM Interpretation: Performing Lab: Notes/Report: [address] [address] Ultrasound Report Signed Patient: Eulalia Brock MR#: [id number] : 1960 Acct:[id number] Age/Sex: 63 / F ADM Date: 06/20/24 Loc: HO.US Attending Dr: Dada Patel MD Ordering Physician: Dada Patel MD Date of Service: 06/20/24 Procedure(s): US thyroid Accession Number(s): [id number] cc: Matt Gomes MD; Dada Patel MD [...] than or equal to 1 cm: 1. Data Warehouse Administrator nodules are described as follows: 1. Location: [...] 07/10/24 1732 DD/ 1431 TD/TT: 06/20/24 1443 Voice Data Communications Engineer: [address] [address] Ultrasound Report Signed Patient: Everett Brock MR#: [id number] : 1960 Acct:[id number] Age/Sex: 63 / F ADM Date: 06/20/24 Loc: .US Attending Dr: Dada Patel MD Ordering Physician: Dada Patel MD Date of Service: 06/20/24 Procedure(s): US thyroid Accession Number(s): [id number] cc: Matt Gomes MD; Dada Patel MD [...] than or equal to 1 cm: 1. Data Warehouse Administrator nodul es are described as follows: 1. [...] 07/10/24 1732 DD/ 1431 TD/TT: 06/20/24 1443 Voice Data Communications Engineer: Pap Smear Reviewed date:03/30/2025 12:56:45 PM Interpretation: Performing Lab:[facility], [address] [place] [phone] Notes/Report: --- Name: Eulalia Brock Age/Sex: 64/F : 1960 Unit#: [id number] Attend Dr: Viral Thacker MD Re03/27/25 Status : DEP REF Location: [facility] Disch: --- SPEC : [id number] RECD : 03/28/25 STATUS: ELANA GILES NUM: [id number] EDWARD: 03/27/258 [facility] DR: Viral Thacker MD ENTERED: 03/28/25 41 SP TYPE: Pap Smr OTHR DR: Matt Gomes MD ORDERED: Pap Smear Interpretation Satisfactory for evaluation. Negative for intraepithelial lesion or malignancy. Atrophic. HPV High Risk: Negative HPV Genotyping 16: Negative HPV Genotyping 18: Negative Clinical Information LMP: Unknown date Previous PAP test: 09/09/2020, Unknown findings Other history: Encounter for well woman exam Material Received ThinPrep-Cervical PAP Disclaimer As of August 09, the technical services to include automated prescreening performed by the ThinPrep Imag ing System, PAP screening and HPV testing will be performed at [facility] (CLIA #[id number]), [address] [place] [address]. Testing for H PV was performed using the Mamie SUKUMAR 6800 system. The presence of HPV in the female genital tract is associated with a number of diseases, including cervical carcinoma. The HPV D NA high risk pool tests for HPV 31, 33, 35, 39, 45, 51, 52, 56, 58, 59, 66 and 68. The testi ng for HPV 16 and 18 genotypes has also been performed. A positive result indicates detection of nucleic acid sequences from one or more subtypes, whereas a negative result indicates such sequences were not detected. All professional services are performed by [facility] ([address] [place] [address], [place] [address]; P h: [phone]; CLIA #[id number]). The PAP Test is a screening procedure with the inherent possibility of both false negative and false positive results. Results should be interpreted in the context of historic and current clinical findings. Reliability of the PAP Test is enhanced by performing the test on a regular repetit patrick basis. CONTINUED ON NEXT PAGE --- Name: Eulalia Brock Age/Sex: 64/F : 1960 Unit#: [id number] Attend Dr: Viral Thacker MD Re03/27/25 Status : DEP REF Location: [facility] Disch: --- SPEC : [id number] RECD : 03/28/25 STATUS: ELANA GILES NUM: [id number] EDWARD: 03/27/25-1358 [facility] DR: Viral Thacker MD ENTERED: 03/28/25-08 41 SP TYPE: Pap Smr OTHR DR: Matt Gomes MD ORDERED: Pap Smear Copies To: Matt Gomes MD [facility] [address] [facility] [address] [place] [address] Viral Thacker MD [facility] [address] [facility] [address] [place] [address] --- Signed (signature on file) Hank ALEJANDRO Armas ([facility]) 03/30/25 1041 --- END OF REPORT HPV High risk Reviewed date:04/02/2025 12:43:41 PM Interpretation: Performing Lab:[facility], [address] [place] [phone] Notes/Report: HPV High Risk Negative Negative HPV Genotype 16 Negative Negative HPV Genotype 18 Negative Negative HPV testing performed at [facility] (CLIA #[id number]) , [address] [place] [address]. Testing for HPV was performed using the Mamie SUKUMAR 6800 system. The presence of HPV in the female genital tract is associated with a number of diseases, including cervical carcinoma. The HPV DNA high risk pool tests for HPV 31, 33, 35, 39, 45, 51, 52, 56, 58, 59, 66 and 68. The testing for HPV 16 and 18 genotypes has also been performed. A positive result indicates detection of nucleic acid sequences from one or more subtypes, whereas a negative result indicates such sequences were not detected. Reason For Referral No Information Medications Medication [...] Problem Status W/U Status Risk Notes Problem 133313404 Lumbar disc disease (M51.9) Active confirmed Problem 733190787 Rosacea (L71.9) Active confirmed Problem 90850966 Labile hypertension (I10) Active confirmed Problem 668983013 Graves disease (E05.00) Active confirmed Problem 689880139 Elevated cholesterol with elevated triglycerides (E78.2) Active confirmed Problem 357231702 Menopause (Z78.0) Active confirmed Problem 854454617 Schatzki's ring (K22.2) Active confirmed Problem 03795915 Elevated blood sugar (R73.9) Active confirmed Problem 16947277 Sciatica of righ t side (M54.31) Active confirmed Problem 83931413 Blepharitis (H01.009) Active confirmed Problem 174618325 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) Active confirmed Problem 66522065 Bilateral carpal tunnel syndrome (G56.03) Active confirmed Problem 13997617 REEMA (obstructive sleep apnea) (G47.33) Active confirmed [...] Date Provider Diagnosis Matt Gomes MD [address] [facility] [address] [place] [phone] 07/03/2024 Matt Gomes Blood tests for routine general physical examination Z00.00 ; Labile hypertension I10 ; Graves disease E05.00 and Elevated cholesterol with elevated triglycerides E78.2 Matt Gomes MD [address] [facility] [address] [id number] 07/10/2024 Matt Gomes Elevated cholesterol with elevated triglycerides E78.2 ; Annual physical exam Z00.00 ; Graves disease E05.00 ; Labile hypertension I10 ; REEMA (obstructive sleep apnea) G47.33 ; Colon cancer screening Z12.11 and Depression screening Z13.31 Matt Gomes MD [address] [id number] 09/08/2024 Matt Gomes Left Achilles tendinitis M76.62 and Labile hypertension I10 Matt Gomes MD [address] [place] [address] [phone] 09/07/2024 Matt Gomes Achilles tendinitis of left [...] Provider Name:Matt Flannery ier, 07/05/2025 08:00:00 AM, [address] [place] [address], [address], [phone], Provider Name:Matt Flannery ier, 07/12/2025 02:30:00 PM, [address] [place] [address], [place] [address], [place], [place], [phone], Insurance Providers Payer Name Payer Address Payer Phone Subscriber Number Group Number Insured Name Patient Relationship to Insured Coverage Start Date Coverage End Date [facility] MEDICARE ADVANTAGE PLAN ONE [facility] [address] [place] [id number] Eulalia Brock Self - patient is the insured Medical (General) History Medical History History ICD Code 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 05/11/14, mammo refused 2020 still refusi ng 05/11/14 to schedule colonosc opy. is going to try again; colonoscopy done 10/01/17 w/Dr. Camarena - repeat 10 years IS ABLE TO TOLERATE MACROBID AND CIPRO is going jul 2017 Do yearly TSH for Graves Disease
--- OUTSIDE RECORDS SUMMARY | 2025-04-27 11:49 | XMS_ITS | Patient Health Record ---
Author Organization [facility] Ashu Floresley Address [address] [place] [address] Care Team Providers Care Industrial Machine Assembler Name Role Phone Mireya AKERS, Matt Primary Care Provider Chance Thompson Unavailable [phone] Allergies Allergen (clinical drug ingredient) Drug/Non Drug Allergy documented on EMR Reaction Allergy Type Onset Date Status sulfamethoxazole / trimethoprim Bactrim rash Drug Allergy Active Biaxin itchy Drug Allergy Active erythromycin Erythromycin itchy Drug Allergy A ctive Keflex itchy Drug Allergy Active Levaquin itchy Drug Allergy Active Penicillin hives Drug Allergy Active latex Unknown Drug Allergy Active Z Pac itchy Drug Allergy Active Adhesive Tape Unknown Drug Allergy Act patrick Shrimp/Shell Fish Unknown Drug Allergy Active Reason For Referral No Information Medications Medication SIG (Take, Route, Frequency, Duration) Notes Start Date End Date Status Advil 200 MG 1 tablet as needed O rally every 6 hrs Active Calcium 1 tab Oral Active vitamin Active Gregory 3 1000 MG 1 capsule Orally Onc e a day Active Claritin 10 MG 1 tablet Orally prn Active Excedrin Migraine 250-250-65 MG 2 tablets as needed Orally every 6 hrs Active Social History Tobacco use other than smoking: Question Answer Notes Are you an other tobacco user? No Problems Problem Type SNOMED Code ICD Code Onset Dates Problem Status W/U Status Risk Notes Problem Onychomycosis (102636163) Onychomycosis (110.1) Active confirmed Just starting Topical tx NOW Problem Pain in Limb (729.5) Active confirmed Plan Of Treatment Pending Test Test Name Order Date [id number] NAIL, 1-5 06/04/2014 [id number] NAIL, 1-5 09/03/2014 Insurance Providers Payer Name Payer Address Payer Phone Subscriber Number Group Number Insured Name Patient Relationship to Insured Coverage Start Date Coverage End Date [facility] [address] [place] [address] [id number] CALIXTO Spouse - patient is the spouse of the insured Medical (General) History Medical History History ICD Code Anemia Back,Hip,and Knee pain Migraines Eczema Thyroid disorder Chicken pox Measles Mumps Transfusions Surgical History Surgery Date(Month/Year) appendectomy D&C
== END 2025-04-27 11:12 | disposition home or self-care (01) ==
LOC: HO.MAMMO 11:11
PROVIDERS: PCP Internal Medicine; Visit Provider Obstetrics & Gynecology
DX: Z13.820 Encounter for screening for osteoporosis (principal); Z78.0 Asymptomatic menopausal state
CPT/HCPCS: 77080

== ENCOUNTER → 2025-04-27 11:30 | Outpatient (BNV) | payer MEDICARE, SELFPAY | PROVIDERS: PCP Internal Medicine; Visit Provider Radiology Diagnostic Radiology | DX: E28.39 Other primary ovarian failure (principal) | CPT/HCPCS: 77080 ==

== ENCOUNTER 2025-05-15 10:57 | Outpatient (REF) | payer MEDICARE, SELFPAY ==
--- OUTSIDE RECORDS SUMMARY | 2025-05-15 12:10 | XMS_ITS | Patient Health Record ---
Author Organization Matt Gomes MD Address [address] [place], [place] [id number] Care Team Providers Care Vp Director Of Finance Name Role Phone Matt Gomes Primary Care [...] ff Reviewed date:07/03/2024 05:04:43 PM Interpretation: Performing Lab:[facility], [address] [place] [phone] Notes/Report: White Blood Count 5.9 4.8-10.8 X10*3/uL [...] NRBC Abs Auto 0.000 0.0-0.012 X10*3/uL Comprehensive [place]. Panel Fa st Reviewed date:07/03/2024 12:53:26 PM Interpretation: Performing Lab:[facility], [address] [place] [phone] Notes/Report: Sodium 142 135-145 mmol/L Potassium 4.0 3.3-5.1 mmol/L Chloride 107 96-108 mmol/L Carbon Dioxide 28 22-29 mmol/L Anion Gap 11 12-20 Blood Urea Nitrogen 14 9-16 mg/dL Creatinine 0.97 0.5-1.4 mg/dL Estimated Glomerular Filt Rate 58 NOTE: For -Colombian individuals, multiply the result by 1.210. Chronic [...] Panel Reviewed date:07/03/2024 12:44:09 PM Interpretation: Performing Lab:[facility], [address] [place] [phone] Notes/Report: Triglycerides 119 <150 mg/dL Desirable Triglyceride: [...] t Reviewed date:07/03/2024 05:04:26 PM Interpretation: Performing Lab:[facility], [address] [place] [phone] Notes/Report: Urine, Clean Catch Color Urine Yellow Appearance Urine Cloudy PH 7.5 5.0-9.0 Glucose Urine UA Negative Negative mg/dL Urine Blood Negative Negative Specific [place] - Urine 1.015 1.005-1.025 Urine Protein Negative [...] date:07/31/2024 10:52:40 AM Interpretation: Performing Lab: Notes/Report: [address] [address] Ultrasound Report Signed Patient: Eulalia Brock MR#: [id number] : 1960 Acct:[id number] Age/Sex: 63 / F ADM Date: 06/20/24 Loc: HO.US Attending Dr: Dada Patel MD Ordering Physician: Dada Patel MD Date of Service: 06/20/24 Procedure(s): US thyroid Accession Number(s): [id number] cc: Matt Gomes MD; Dada Patel MD [...] than or equal to 1 cm: 1. Chainstitch Pants Outseamer nodules are described as follows: 1. Location: [...] 07/10/24 1732 DD/ 1431 TD/TT: 06/20/24 1443 Lace Finisher: [address] [address] Ultrasound Report Signed Patient: Everett Brock MR#: [id number] : 1960 Acct:[id number] Age/Sex: 63 / F ADM Date: 06/20/24 Loc: .US Attending Dr: Dada Patel MD Ordering Physician: Dada Patel MD Date of Service: 06/20/24 Procedure(s): US thyroid Accession Number(s): [id number] cc: Matt Gomes MD; Dada Patel MD [...] than or equal to 1 cm: 1. Chainstitch Pants Outseamer nodul es are described as follows: 1. [...] 07/10/24 1732 DD/ 1431 TD/TT: 06/20/24 1443 Lace Finisher: Pap Smear Reviewed date:03/30/2025 12:56:45 PM Interpretation: Performing Lab:[facility], [address] [place] [phone] Notes/Report: --- Name: Eulalia Brock Age/Sex: 64/F : 1960 Unit#: [id number] Attend Dr: Viral Thacker MD Re03/27/25 Status : DEP REF Location: [facility] Disch: --- SPEC : [id number] RECD : 03/28/25 STATUS: ELANA GILES NUM: [id number] EDWARD: 03/27/[address] [facility] [address]: Viral Thacker MD ENTERED: 03/28/25 [...] and HPV testing will be performed at [facility] (CLIA #[id number]), [address] [place] [address]. Testing for H PV was performed using [...] detected. All professional services are performed by [facility] ([address] [place] [address], [place] [address]; P h: [phone]; CLIA #[id number]). The PAP Test is a screening procedure with the inherent possibility of both false negative and false positive results. Results should be interpreted in the context of historic and current clinical findings. Reliability of the PAP Test is enhanced by performing the test on a regular repetit patrick basis. CONTINUED ON NEXT PAGE --- Name: Eulalia Brock Age/Sex: 64/F : 1960 Unit#: [id number] Attend Dr: Viral Thacker MD Re03/27/25 Status : DEP REF Location: [facility] Disch: --- SPEC : [id number] RECD : 03/28/25 STATUS: ELANA GILES NUM: [id number] EDWARD: 03/27/25-[address] [facility] [address]: Viral Thacker MD ENTERED: 03/28/25-08 41 SP TYPE: Pap Smr OTHR DR: Matt Gomes MD ORDERED: Pap Smear Copies To: Matt Gomes MD [facility] [address] [facility] [address] [place] [address] Viral Thcaker MD [facility] [address] [facility] [address] [place] [address] --- Signed (signature on file) Hank Armas [place] (ASC) 03/30/25 1041 --- END OF REPORT HPV High risk Reviewed date:04/02/2025 12:43:41 PM Interpretation: Performing Lab:[facility], [address] [place] [phone] Notes/Report: HPV High Risk Negative Negative HPV Genotype 16 Negative Negative HPV Genotype 18 Negative Negative HPV testing performed at [facility] (CLIA #[id number]) , [address] [place] [address]. Testing for HPV was performed using the [...] result indicates such sequences were not detected. XR DEXA axial skeleton Reviewed date:04/27/2025 04:42:37 PM Interpretation: Performing Lab: Notes/Report: [facility]'[address] [place], [place] [address] Mammography Report Signed Patient: Eulalia Brock MR#: [id number] : 1960 Acct:[id number] Age/Sex: 64 / F ADM Date: 04/27/25 Loc: ANTONIA Attending Dr: Viral Thacker MD Ordering Physician: Viral Thacker MD Results: Date of Service: 04/27/25 Follow Up: Procedure(s): XR DEXA axial skeleton Accession Number(s): [id number] cc: Matt Gomes MD; Viral Thacker MD EXAMINATION: DXA BONE DENSITY AXIAL HISTORY: Z78.0 - Asymptomatic menopausal state TECHNIQUE: Silk Dual energy absorptiometry (DEXA) of the lumbar spine, total left hip, and femoral neck was performed. COMPARISON: There are no prior studies for comparison. FINDINGS: The bone mineral density of the lumbar spine is 1.043 g/cm2, corresponding to a T-score of -1.1, and a Z-score of 0.9. This is indicative of osteopenia. The bone mineral density of the left total hip is 0.906 g/cm2, corresponding to a T-score of -0.8, and a Z-score of 0.8. This is indicative of normal bone mineral density. The bone mineral density of the left femoral neck is 0.823 g/cm2, corresponding to a T-score of -1.5, and a Z-score of 0.3. This is indicative of osteopenia. FRACTURE RISK: The FRAX index suggests a risk of major osteoporotic fracture of 8.7%, and of hip fracture 1.1%. MM/XR DEXA axial skeleton IMPRESSION: Based on bone mineral density, and according to World Health Organization (WHO) criteria, the diagnosis is consistent with osteopenia. Statistically, 68% of repeat scans fall within 1 SD (+/- 0.010 g/cm2 for AP spine L1-L4) and 1 SD (+/- 0.012 g/cm2 for femur total) FRAX is a trademark of the [employer]'s [employer] Metabolic Bone Disease, a World Health Organization (WHO) Collaborating Center. Electronically signed by: Dada Mcclellan MD 04/27/2025 12:58 PM EDT Dictated By: Dada Mcclellan MD Signed By: <Electronically signed by Dada Mcclellan MD in OV> 04/27/25 1258 DD/ 1115 TD/TT: 04/27/25 1145 Lace Finisher: [facility] [address] [place], [place] [address] Mammography Report Signed Patient: Everett Brock MR#: [id number] : 1960 Acct:[id number] Age/Sex: 64 / F ADM Date: 04/27/25 Loc: HO.MAMMO Attending Dr: Viral Thacker MD Ordering Physician: Viral Thacker MD Results: Date of Service: 04/27/25 Follow Up: Procedure(s): XR DEX A axial skeleton Accession Number(s): [id number] cc: Matt Gomes MD; Viral Thacker MD EXAMINATION: DXA BON E DENSITY AXIAL HISTORY: Z78.0 - Asymptomatic menopausal state TECHNIQUE: Silk Dual energy absorptiometry (DEXA) of the lumbar spine, total left hip, and femoral neck was performed. COMPARISON: There ar e no prior studies for comparison. FINDINGS: The bone mineral density of the lumbar spine is 1.043 g/cm2, corresponding to a T-score of -1.1, and a Z-score of 0.9. This is indicative of osteopenia. The bone mineral density of the left total hip is 0.906 g/cm2, corresponding to a T-score of -0.8, and a Z-score of 0.8. This is indicative of normal bone mineral density. The bone mineral density of the left femoral neck is 0.823 g/cm2, corresponding to a T-score of -1.5, and a Z-score of 0.3. This is indicative of osteopenia. FRACTURE RISK: The FRAX index sugge sts a risk of major osteoporotic fracture of 8.7%, and of hip fracture 1.1%. ___ MM/XR DEXA axial skeleton IMPRESSION: Based on bone minera l density, and according to World Health Organization (WHO) criteria, the diagnosis is consistent with osteopenia. Statistically, 68% o f repeat scans fall within 1 SD (+/- 0.010 g/cm2 for AP spine L1-L4) and 1 SD (+/- 0.012 g/cm2 for femur total) FRAX is a trademark of the [employer]'s [employer] Metabolic Bone Disease, a World Health Organization (WHO) Collaborating Center. Electronically arleen d by: Dada Mcclellan MD 04/27/2025 12:58 PM EDT RP Dictated By: Dada Mcclellan MD Signed By: <Electronically signed by Dada Mcclellan MD in OV> 04/27/25 1258 DD/ 1115 TD/TT: 04/27/25 1145 Lace Finisher: Reason For Referral No Information Medications Medication [...] Problem Status W/U Status Risk Notes Problem 782003175 Lumbar disc disease (M51.9) Active confirmed Problem 065164499 Rosacea (L71.9) Active confirmed Problem 59109453 Labile hypertension (I10) Active confirmed Problem 470134752 Graves disease (E05.00) Active confirmed Problem 787739318 Elevated cholesterol with elevated triglycerides (E78.2) Active confirmed Problem 616141764 Menopause (Z78.0) Active confirmed Problem 776527858 Schatzki's ring (K22.2) Active confirmed Problem 68222439 Elevated blood sugar (R73.9) Active confirmed Problem 12558807 Sciatica of righ t side (M54.31) Active confirmed Problem 57571611 Blepharitis (H01.009) Active confirmed Problem 361971026 [place]deolum chin strap sewer um of right upper eyelid (H00.011) Active confirmed Problem 40803971 Bilateral carpal tunnel syndrome (G56.03) Active confirmed Problem 86011786 REEMA (obstructive sleep apnea) (G47.33) Active confirmed [...] Location Date Provider Diagnosis Matt Gomes MD [address] [place] [address] Drive [address] [place] [id number] 07/03/2024 Matt Gomes Blood tests for routine general physical examination Z00.00 ; Labile hypertension I10 ; Graves disease E05.00 and Elevated cholesterol with elevated triglycerides E78.2 Matt Gomes MD [address] [place] [address] Drive [address] [place] [id number] 07/10/2024 Matt Gomes Elevated cholesterol with elevated triglycerides E78.2 ; Annual physical exam Z00.00 ; Graves disease E05.00 ; Labile hypertension I10 ; REEMA (obstructive sleep apnea) G47.33 ; Colon cancer screening Z12.11 and Depression screening Z13.31 Matt Gomes MD [address] [place] [address] Drive [address] [place] [id number] 09/08/2024 aMtt Gomes Left Achilles tendinitis M76.62 and Labile hypertension I10 Matt Gomes MD [address] [facility] [address] [place] [id number] 09/07/2024 Matt Gomes Achilles tendinitis of left lower extremity M76.62 Matt Gomes MD [address] [place] [id number] 04/30/2025 Matt Gomes Assessments Encounter Date Diagnosis (ICD Code) Assessment [...] Name:Matt Flannery ier, 07/05/2025 08:00:00 AM, [address] [facility], [address], [place], [place], [id number], Provider Name:Matt Flannery ier, 07/12/2025 02:30:00 PM, [address] [facility], [address], [place], [place], [id number], Insurance Providers Payer Name Payer Address Payer Phone Subscriber Number Group Number Insured Name Patient Relationship to Insured Coverage Start Date Coverage End Date [employer] PLAN [address] [place] [phone] [id number] Eulalia Brock Self - patient is the insured Medical (General) History Medical History History ICD Code 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 05/11/14, mammo refused 2020 still refusi ng 05/11/14 to schedule colonosc opy. is going to try again; colonoscopy done 10/01/17 w/Dr. Camarena - repeat 10 years IS ABLE TO TOLERATE MACROBID AND SYED is going jul 2017 Do yearly TSH for Graves Disease
--- OUTSIDE RECORDS SUMMARY | 2025-05-15 12:10 | XMS_ITS | Patient Health Record ---
Author Organization [facility] Ashu Floresley Address [address] [place] [address] Care Team Providers Care Academic Affairs Coordinator Name Role Phone Mireya AKERS, Matt Primary Care Provider Chance Thompson Unavailable [phone] Allergies Allergen (clinical drug ingredient) Drug/Non Drug [...] Calcium 1 tab Oral Active vitamin Active [place] 3 1000 MG 1 capsule Orally Onc [...] Status W/U Status Risk Notes Problem Onychomycosis (269679578) Onychomycosis (110.1) Active confirmed Just starting Topical tx NOW Problem Pain in Limb (729.5) Active confirmed Plan Of Treatment Pending Test Test Name Order Date [id number] NAIL, 1-5 06/04/2014 [id number] NAIL, 1-5 09/03/2014 Insurance Providers Payer Name Payer Address Payer Phone Subscriber Number Group Number Insured Name Patient Relationship to Insured Coverage Start Date Coverage End Date [facility] [address] [place] [address] [id number] Spouse - patient is the spouse of the insured Medical (General) History Medical History History ICD Code Anemia Back,Hip,and Knee pain Migraines Eczema Thyroid disorder Chicken pox Measles Mumps Transfusions Surgical History Surgery Date(Month/Year) appendectomy D&C
--- OUTSIDE RECORDS SUMMARY | 2025-05-15 12:11 | XMS_ITS | Patient Health Record ---
Author Organization [facility] Address [address] [place] [address] Care Team Providers Care Bean Viner Name Role Phone Matt Gomes MD Primary Care Provider Dada Mendez [phone] Allergies Allergen (clinical drug ingredient) Drug/Non Drug Allergy documented on EMR Reaction Allergy Type Onset Date Status tetracycline Tetracycline HCl Unknown Drug Allergy Active Sulfacet-R Unknown Drug Allergy Active penicillamine Penicillamine Unknown Drug Allergy Active Levaquin Unknown Drug Allergy Active erythromycin Erythromycin Unknown Drug Allergy A ctive doxycycline Doxycycline Hyclate Unknown Drug Allergy Active cephalexin Cephalexin Unknown Drug Allergy Activ e Reason For Referral No Information Medications Medication SIG (Take, Route, Fr equency, Duration) Notes Start Date End Date Status Advil prn Active Loratadine prn Active Fish Oil PRN Active Excedrin Migraine prn Ac tive Multivitamin Active Calcium PRN Active Problems Problem Type SNOMED Code ICD Code Onset Dates Problem Status W/U Status Risk Notes Problem 103516706 Encounter for screening for malignant neoplasm of colon (Z12.11) Active confirmed Problem 59643117 Pharyngoesophage al dysphagia (R13.14) Active confirmed Plan Of Treatment Future Test Test Name Order Date COLONOSCOPY 10/26/2012 UPPER GI ENDOSCOPY 08/12/2017 COLONOSCOPY 08/12/2017 Insurance Providers Payer Name Payer Address Payer Phone Subscriber Number Group Number Insured Name Patient Relationship to Insured Coverage Start Date Coverage End Date [facility] [address] [place], [place] [id number] MARILYKAEL GUZMÁN Self - patient is the insured Medical (General) History Medical History History ICD Code Colonosocpy 12-11-2002-negative except in t/ext hemorrhoids Graves' Disease Premature heartbeat--of no clinical sign ificance-on no Rx for it Denies OK,DM,CVA,Lung disease,renal dise ase 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
[2025-05-15 14:03] LABS: Free T4 (Free Thyroxine) 0.82 ng/dL (0.71-1.85); Thyroid Stimulating Hormone 0.31 uIU/mL (0.32-4.0)
== END 2025-05-15 10:58 | disposition home or self-care (01) ==
LOC: HO.10HDL 10:57
PROVIDERS: Visit Provider Internal Medicine Endocrinology, Diabetes & Metabolism
DX: E05.90 Thyrotoxicosis, unspecified without thyrotoxic crisis or storm (principal)
CPT/HCPCS: 36415; 84439; 84443; 84481

== ENCOUNTER 2025-05-16 13:49 | Outpatient (AMB) | payer MEDICARE, SELFPAY ==
--- NOTE | 2025-05-16 14:12 | A.OFFVIS_ITS ---
Intake Visit Reasons: urinary incontinence Intake Note: Patient is present for URINARY INCONTINENCE Urology Medication:NONE Antibiotic Allergy:CEPHALEXIN,DOXCYCLINE,ERYTHROMYCIN,LEVOFLOXACIN,PENICILLINS,SULFA,TETRAC YCLINE Blood Thinner:NONE TODAY'S PVR:0ML'S Back Tender Pulp Drier Required: No Allergies cephalexin Allergy (Unknown, Verified 05/16/25 16:51) itchy doxycycline (DOXYCYCLINE) Allergy (Unknown, Verified 05/16/25 16:51) ?RXN- TESTED + erythromycin base (ERYTHROMYCIN BASE) Allergy (Unknown, Verified 05/16/25 16:51) ITCHY HIVES levofloxacin (From LEVAQUIN) Allergy (Unknown, Verified 05/16/25 16:51) ITCH HIVES penicillin V Allergy (Unknown, Verified 05/16/25 16:51) unknown Penicillins (PENICILLINS) Allergy (Unknown, Verified 05/16/25 16:51) + WITH ALLERGY TESTING strawberry (STRAWBERRY) Allergy (Unknown, Verified 05/16/25 16:51) ITCHY - HIVES Sulfa (Sulfonamide Antibiotics) (SULFA(SULFONAMIDE ANTIBIOTICS)) Allergy (Unknown, Verified 05/16/25 16:51) RASH tetracycline (TETRACYCLINE) Allergy (Unknown, Verified 05/16/25 16:51) TESTED + WITH ALLERGY WORK - UP Doxycycline (Rosacea) Allergy (Unknown, Uncoded 05/16/25 16:51) itchy Erythromycin Allergy (Unknown, Uncoded 05/16/25 16:51) itchy Medication List - Last Reconciled 05/16/25 by MUSTAPHA Pastor- methimazole 10 mg PO DAILY multivitamin 1 tab PO DAILY vitamin E mixed units PO HPI Comments Details: Eulalia is a very pleasant 64-year-old female patient of Dr. Gomes. He has a past medical history of hyperthyroidism and migraines. She presents to the office today as a new patient for mixed urinary incontinence. In discussion with the patient today she reports a longstanding history of incontinence over the last 15 years however has recently followed up with her PCP and BREAD WRAPPER at which time recommendations were made for urology referral for further assessment evaluation. She reports utilizing 1-2 Yumiko pads per day however feels at times she wears these more for just in case purposes. When asked she does report a previously having to vaginal of large size babies. She also reports her 1st labor was long. She also reports noting intermittent episodes of contact dermatitis due to wearing Yumiko pads. In office urinalysis results reviewed with the patient today. PVR 0 mL. She denies urinary urgency, urinary frequency, nocturia, hematuria, dysuria, foul smelling urine, changes to urinary stream, flank pain, fever, and or chills. On exam today no POP noted. We did discussed at length potential causes of mixed urinary incontinence as well as further treatment options and risks and benefits of these treatment options. She reports that although she experiences episodes of mixed urine incontinence she does feel this is not bothersome. She is unsure if she would like to undergo further treatment options at this time. All questions were answered. She otherwise offers no other issues or concerns at this time [facility] Medical History Hyperthyroidism Light sensitivity Migraine headache Graves disease Surgical History Tubal ligation status [place] teeth extracted Hx of appendectomy Family History Sister Endometrial cancer Mother Lung cancer Social History Household Members: Spouse Housing: House Alcohol intake: never Patient Tobacco Use Status: Never used Tobacco Current occupational status: unemployed Sexual orientation: Straight/Heterosexual Gender identity: Female Female Reproductive History Menstrual Age of Menarche: 9 Review of Systems Const All systems reviewed & are unremarkable except as noted in HPI and below Physical Exam Const General: cooperative, healthy appearing, comfortable, no acute distress, well developed, alert and awake Orientation/consciousness: patient oriented x3 Limitations: no limitations HEENT Head: Yes normal to inspection, Yes normocephalic and Yes atraumatic Ears: hearing grossly normal bilaterally Eyes General: appearance normal, both eyes and all related structures Neck Neck: Yes normal visual inspection and Yes trachea midline Chest Chest palpation & inspection: normal inspection of the chest Resp Effort & Inspection: normal respiratory effort and able to speak in complete sentences Cardio Rate: regular rate GI Inspection: Yes normal to inspection General: Yes no CVA tenderness External Female Exam: normal external appearance and normal appearance of the urethra Speculum Exam - Vagina: normal appearance of the vagina Back/Spine/Pelvis Back: no CVA tenderness Skin General skin exam: no rashes or lesions noted Neuro General: patient oriented x3 Extrem General: Yes normal to inspection Psych Appearance: grossly normal and well kempt Mental Status: mental status grossly normal Speech and movement: Normal speech and movement present and Clear speech present Affect: normal affect Attitude: cooperative Thought process: Normal thought process present Thought content: Normal thought content present Insight: Fair insight present (Psych) Judgement: Fair judgement present (Psych) Office Procedures Post Void Residual Post Residual Void Post Void Residual (PVR): 0 [id number]-[id number] Void Residual by ultrasound Results AMB Urinalysis, Automated UA Leukoctes 0 Elise/uL Last Edit by ZENAIDA Watson on 05/16/25 16:04 UA Nitrite Negative Last Edit by Kamlesh Toscano CCM on 05/16/25 16:04 UA Urobilinogen 0.2 mg/dL Last Edit by Kamlesh Toscano CCM on 05/16/25 16:0 4 UA Protein 0 mg/dL Last Edit by Kamlesh Toscano CCM on 05/16/25 16:04 UA pH 6.0 Last Edit by Kamlesh Toscano [facility] on 05/16/25 16:04 UA Blood 0 Primitivo/uL Last Edit by Kamlesh Toscano CCM on 05/16/25 16:04 UA Specific [place] 1.015 Last Edit by Kamlesh Toscano CCM on 05/16/25 16: 04 UA Ketone Negative Last Edit by Kamlesh Toscano CCM on 05/16/25 16:04 UA Bilirubin 0 mg/dL Last Edit by Kamlesh Toscano [facility] on 05/16/25 16:04 UA Glucose 0 mg/dL Last Edit by Kamlesh Toscano [facility] on 05/16/25 16:04 Results Reviewed Results Reviewed: Laboratory Last Values Urine pH (Auto) 6.0 05/16/25 16:03 Specific [place] (Auto) 1.015 05/16/25 16:03 Urine Protein (Auto) 0 mg/dL 05/16/25 16:03 Glucose (UA)(Auto) 0 mg/dL 05/16/25 16:03 Urine Ketones (Auto) Negative 05/16/25 16:03 Urine Blood (Auto) 0 Primitivo/uL 05/16/25 16:03 Urine Nitrite (Auto) Negative 05/16/25 16:03 Urine Bilirubin (Auto) 0 mg/dL 05/16/25 16:03 Urine Urobilinogen (Auto) 0.2 mg/dL 05/16/25 16:03 Leukocyte Esterase (Auto) 0 Elise/uL 05/16/25 16:03 Assessment & Plan Assessment & Plan (1) Urine incontinence: Code(s): R32 - Unspecified urinary incontinence Category: Medical Plan In office urinalysis results reviewed with the patient today; as noted above. PVR 0 mL We discussed further treatment options and risks and benefits of these treatment options; this was discussed at length Information was provided regarding pelvic floor exercises/therapy and uro dynamics. All questions were answered. We discussed obtaining retroperitoneal ultrasound for further assessment evaluation. Patient would like to call for follow-up as she is unsure if she would like to undergo further treatment options at this time. She denies any UTI like symptoms. Follow-up; PRN Orders: Orders AMB Urinalysis Automated Today Z13.9 - Encounter for screening, unspecified Patient Instructions: The patient had an opportunity to ask questions regarding the treatment plan. All questions were answered. Physical exam, labs, and imaging were discussed and reviewed in detail. As well as risks, benefits, and discussion of treatment choices. No major barriers to understanding were identified. The patient expressed understanding and agreement with the above treatment plan. The patient was made aware they should contact our office by phone for worsening of their current condition, the appearance of new symptoms, or with any questions or concerns. Compliance is encouraged with any medications and follow up testing that is ordered. It is a privilege to be allowed the opportunity to participate in? your urological care.? Again, if you have any questions or concerns If you have any questions or concerns please do not hesitate to contact me. The office is [phone]. This note is constructed using voice recognition software. While every effort has been made to ensure accuracy forest worker errors may have been included. Yours sincerely, EMILY Pastor Coding Level of Care Code New Pt Level 4 (44884) Diagnoses Urine incontinence R32 CPT Codes Post Residual Void - PVR CPT Code: 06769-Rmhk Void Residual by ultrasound ([id number]) Time Spent (min) 50
--- OUTSIDE RECORDS SUMMARY | 2025-05-16 14:28 | XMS_ITS | Patient Health Record ---
Author Organization [facility] Ashu Floresley Address [address] [place] [address] Care Team Providers Care Watershed Manager Name Role Phone Mireya AKERS, Matt Primary Care Provider Chance Thompson Unavailable [phone] Allergies Allergen (clinical drug ingredient) Drug/Non Drug [...] Calcium 1 tab Oral Active vitamin Active [place] 3 1000 MG 1 capsule Orally Onc [...] Status W/U Status Risk Notes Problem Onychomycosis (262402988) Onychomycosis (110.1) Active confirmed Just starting Topical tx NOW Problem Pain in Limb (729.5) Active confirmed Plan Of Treatment Pending Test Test Name Order Date [id number] NAIL, 1-5 06/04/2014 [id number] NAIL, 1-5 09/03/2014 Insurance Providers Payer Name Payer Address Payer Phone Subscriber Number Group Number Insured Name Patient Relationship to Insured Coverage Start Date Coverage End Date [facility] [address] [place] [address] [id number] Spouse - patient is the spouse of the insured Medical (General) History Medical History History ICD Code Anemia Back,Hip,and Knee pain Migraines Eczema Thyroid disorder Chicken pox Measles Mumps Transfusions Surgical History Surgery Date(Month/Year) appendectomy D&C
--- OUTSIDE RECORDS SUMMARY | 2025-05-16 14:29 | XMS_ITS | Patient Health Record ---
Author Organization [facility] Address [address] [place] [address] Care Team Providers Care Remediation Consultant Name Role Phone Matt Gomes MD Primary Care Provider Dada Mendez [phone] Allergies Allergen (clinical drug ingredient) Drug/Non Drug Allergy documented on EMR Reaction Allergy Type Onset Date Status tetracycline Tetracycline HCl Unknown Drug Allergy Active Sulfacet-R Unknown Drug Allergy Active penicillamine Penicillamine Unknown Drug Allergy Active Levaquin Unknown Drug Allergy Active erythromycin Erythromycin Unknown Drug Allergy A ctive Doxycycline Hyclate Unknown Drug Allergy Active cephalexin [...] Problem Status W/U Status Risk Notes Problem 366229453 Encounter for screening for malignant neoplasm of colon (Z12.11) Active confirmed Problem 44647481 Pharyngoesophage al dysphagia (R13.14) Active confirmed Plan Of Treatment Future Test Test Name Order Date COLONOSCOPY 10/26/2012 UPPER GI ENDOSCOPY 08/12/2017 COLONOSCOPY 08/12/2017 Insurance Providers Payer Name Payer Address Payer Phone Subscriber Number Group Number Insured Name Patient Relationship to Insured Coverage Start Date Coverage End Date [facility] [address] [place], [place] [id number] MARILYKAEL GUZMÁN Self - patient is the insured Medical (General) History Medical History History ICD Code Colonosocpy 12-11-2002-negative except in t/ext hemorrhoids Graves' Disease Premature heartbeat--of no clinical sign ificance-on no Rx for it Denies [place],DM,CVA,Lung disease,renal dise ase Headaches from arthritis in neck Leg pain-has difficulty walking Surgical History Surgery Date(Month/Year) Appendectomy Johnny-D&C
== END 2025-05-16 15:08 | disposition home or self-care (01) ==
LOC: HO.HUSH 13:50
PROVIDERS: PCP Internal Medicine; Visit Provider Nurse Practitioner Family
DX: Z13.9 Encounter for screening, unspecified (principal); R32 Unspecified urinary incontinence
CPT/HCPCS: 99204

== ENCOUNTER → 2025-05-16 13:49 | Outpatient (BNVA) | payer MEDICARE, SELFPAY | PROVIDERS: PCP Internal Medicine; Visit Provider Nurse Practitioner Family | DX: Z71.2 Person consulting for explanation of examination or test findings (principal); R32 Unspecified urinary incontinence | CPT/HCPCS: 51798; 81003; 99202 ==

== ENCOUNTER 2025-05-22 10:25 | Outpatient (AMB) | payer MEDICARE, SELFPAY ==
[2025-05-22 10:34] VITALS: BP 132/90; PULSE 73; O2SAT 96; BMI 22.9
--- NOTE | 2025-05-22 10:34 | MHC.OFFVIS ---
Vital Signs 05/22/25 10:34 Height 5 ft Weight 117 lb 1.047 oz BMI 22.9 BP 132/90 H Blood Pressure Location Rt brachial Position Sitting Pulse 73 Pulse Source Pulse Oximeter Pulse Oximetry (%) 96 Oxygen Delivery Method Room Air Intake Visit Reasons: Hyperthyroidism Intake Note: Patient present today for Hyperthyroidism follow up visit. Enterprise Security Architect Required: No Accompanied by: Self / Same As Patient Allergies cephalexin Allergy (Unknown, Verified 05/22/25 10:35) itchy doxycycline (DOXYCYCLINE) Allergy (Unknown, Verified 05/22/25 10:35) ?RXN- TESTED + erythromycin base (ERYTHROMYCIN BASE) Allergy (Unknown, Verified 05/22/25 10:35) ITCHY HIVES levofloxacin (From LEVAQUIN) Allergy (Unknown, Verified 05/22/25 10:35) ITCH HIVES penicillin V Allergy (Unknown, Verified 05/22/25 10:35) unknown Penicillins (PENICILLINS) Allergy (Unknown, Verified 05/22/25 10:35) + WITH ALLERGY TESTING strawberry (STRAWBERRY) Allergy (Unknown, Verified 05/22/25 10:35) ITCHY - HIVES Sulfa (Sulfonamide Antibiotics) (SULFA(SULFONAMIDE ANTIBIOTICS)) Allergy (Unknown, Verified 05/22/25 10:35) RASH tetracycline (TETRACYCLINE) Allergy (Unknown, Verified 05/22/25 10:35) TESTED + WITH ALLERGY WORK - UP Doxycycline (Rosacea) Allergy (Unknown, Uncoded 05/22/25 10:35) itchy Erythromycin Allergy (Unknown, Uncoded 05/22/25 10:35) itchy Medication List - Last Reconciled 05/22/25 by Dada Simmons MD methimazole 10 mg PO DAILY multivitamin 1 tab PO DAILY vitamin E mixed units PO HPI Comments Details: This 64-year-old white female previously seen by myself for hyperthyroidism due to Graves disease. Currently on methimazole 10 mg q.d. no symptoms of hyperthyroidism or hypothyroidism. Thyroid ultrasound showed a subcentimeter left midpole nodule Was also diagnosed by with low bone mass on DEXA. Unclear if secondary workup was done. FRAX indicates low risk of fracture of hip and major fracture The patient is a 64-year-old female presenting with Graves' disease management. She has been on methimazole 10 mg, which has kept her thyroid levels stable, though the TSH is slightly low at 0.31. The patient reports a history of fluctuating thyroid levels and has experienced heart palpitations and shakiness. The patient also has a history of osteopenia, identified through a bone density test. The risk of fracture is considered low, and she has been advised to take calcium and vitamin D supplements. - Methimazole 10 mg for Graves' disease, maintaining stable thyroid levels. - Calcium and vitamin D supplements for osteopenia. [facility] Medical History (Updated 05/22/25 @ 10:39 by Dada Simmons MD) Thyroid nodule Hyperthyroidism Light sensitivity Migraine headache Graves disease Surgical History Tubal ligation status [place] teeth extracted Hx of appendectomy Family History Sister Endometrial cancer Mother Lung cancer Social History Household Members: Spouse Housing: House Alcohol intake: never Patient Tobacco Use Status: Never used Tobacco Current occupational status: unemployed Sexual orientation: Straight/Heterosexual Gender identity: Female Female Reproductive History Menstrual Age of Menarche: 9 Physical Exam Vital Signs: Last Vital Signs Pulse 73 05/22/25 10:34 BP 132/90 H 05/22/25 10:34 Pulse Ox 96 05/22/25 10:34 Oxygen Delivery Method Room Air 05/22/25 10:34 BMI result Body Mass Index 22.9 Const Other: Thyroid gland is feels top-normal in size and feels nodulular to palpation. There are no thyroid nodules palpated. Reflexes 2+ DTR Assessment & Plan Assessment & Plan (1) Hyperthyroidism: Code(s): E05.90 - Thyrotoxicosis, unspecified without thyrotoxic crisis or storm Category: Medical Plan: This is a 64-year-old female with a history of mild hyperthyroidism possibly due to Graves disease. She appears to be clinically and biochemically euthyroid On 10 mg of methimazole . 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 We discussed options for therapy including continuation of methimazole versus radioactive iodine versus surgery and the risks and benefits of each the patient is wanting to stay on the methimazole for now. We will repeat thyroid ultrasound 1. Graves' disease The patient is currently on methimazole 10 mg, which maintains stable thyroid levels, though TSH is slightly low. The plan includes considering an increase to 12.5 mg if symptoms persist, with follow-up blood tests in four weeks to monitor thyroid function. 2. Osteopenia The patient has been advised to continue calcium and vitamin D supplementation. The risk of fracture is low, and no immediate medication is recommended. Follow-up with primary care for further management is suggested. During the visit, I discussed the management of Graves' disease with the patient, emphasizing the importance of maintaining stable thyroid levels with methimazole. We considered the option of increasing the dose to 12.5 mg if symptoms persist, and I advised follow-up blood tests in four weeks. For osteopenia, I recommended continuing calcium and vitamin D supplementation and suggested follow-up with the primary care physician for further management. We also discussed the low risk of fracture and the current lack of need for additional medication. - - Consider increasing methimazole to 12.5 mg if symptoms persist, and follow up with blood tests in four weeks. - Continue calcium 1200 mg and vitamin D 0658-7566 IU daily for osteopenia. - Follow up with primary care physician for further management of osteopenia. Take 15 carb carbohydrate grams to treat a low sugar (3-4 glucose tablets, half a glass of juice or 15 carbohydrate grams of soft candy such as gummie snacks). Recheck your sugar in 15 minutes and re-treat again with 15 carbohydrate grams if low or still with symptoms. Do not drive a car or operate machinery if you do not know what your blood sugar is, if it is low or in excess of 300. The patient was counseled to achieve a target A1C of 7% (154 avg). Fasting blood sugars should be 90-130 in the morning and less than 180 two hours after meals. Reviewed the relationship between poor diabetic control and the development of complications. Check your feet daily looking for any signs of infection, drainage, redness, ulceration and seek medical attention if this occurs. Break in shoes gradually and do not wear open-toed shoes or walk stocking footed or barefooted. The patient had an opportunity to ask questions regarding treatment plan. The patient expressed understanding and agreement with the above treatment plan. Patient was informed and verbally consented to the use of an ambient scribe for clinic note documentation during this visit. (2) Thyroid nodule: Code(s): E04.1 - Nontoxic single thyroid nodule Category: Medical Plan Subcentimeter thyroid nodule. We will repeat thyroid ultrasound. If any significant changes, we will send to Dr. Jung for thyroid ultrasound Orders: Orders Free T4 (Free Thyroxine) 4 Weeks E05.90 - Thyrotoxicosis, unspecified without thyrotoxic crisis or storm US thyroid Today E04.1 - Nontoxic single thyroid nodule Thyroid Stimulating Hormone 4 Weeks E0. - Thyrotoxicosis, unspecified without thyrotoxic crisis or storm Triiodothyronine T3 Free 4 Weeks E05.90 - Thyrotoxicosis, unspecified without thyrotoxic crisis or storm Medications: New methimazole Take 2.5 mg with 10 mg for total of 12.5 mg 2.5 mg (1/2 x 5 mg) PO DAILY 15 tabs 4RF Changed From methimazole 10 mg PO DAILY 90 tabs 1RF To methimazole Take 10 mg with 2.5 mg to total 12.5 mg 10 mg PO DAILY 90 tabs 1RF Coding Level of Care Code Est Pt Level 3 (97088) Diagnoses Hyperthyroidism E05. Thyroid nodule E04.1
--- OUTSIDE RECORDS SUMMARY | 2025-05-22 11:06 | XMS_ITS | Patient Health Record ---
Author Organization [facility] Ashu Kellogg Address [address] [place] [address] Care Team Providers Care Parts Coordinator Name Role Phone Mireya AKERS, Matt Primary Care Provider Chance Thompson Unavailable [phone] Allergies Allergen (clinical drug ingredient) Drug/Non Drug [...] Calcium 1 tab Oral Active vitamin Active [place] 3 1000 MG 1 capsule Orally Onc [...] Status W/U Status Risk Notes Problem Onychomycosis (008424191) Onychomycosis (110.1) Active confirmed Just starting Topical tx NOW Problem Pain in Limb (729.5) Active confirmed Plan Of Treatment Pending Test Test Name Order Date [id number] NAIL, 1-5 06/04/2014 [id number] NAIL, 1-5 09/03/2014 Insurance Providers Payer Name Payer Address Payer Phone Subscriber Number Group Number Insured Name Patient Relationship to Insured Coverage Start Date Coverage End Date [facility] [address] [place] [address] [id number] Spouse - patient is the spouse of the insured Medical (General) History Medical History History ICD Code Anemia Back,Hip,and Knee pain Migraines Eczema Thyroid disorder Chicken pox Measles Mumps Transfusions Surgical History Surgery Date(Month/Year) appendectomy D&C
--- OUTSIDE RECORDS SUMMARY | 2025-05-22 11:06 | XMS_ITS | Patient Health Record ---
Author Organization [facility] Address [address] [place] [address] Care Team Providers Care Blast Furnace Checker Name Role Phone Matt Gomes MD Primary Care Provider Dada Mendez [phone] Allergies Allergen (clinical drug ingredient) Drug/Non Drug [...] Problem Status W/U Status Risk Notes Problem [id number] Encounter for screening for malignant neoplasm of colon (Z12.11) Active confirmed Problem 26376953 Pharyngoesophage al dysphagia (R13.14) Active confirmed Plan Of Treatment Future Test Test Name Order Date COLONOSCOPY 10/26/2012 UPPER GI ENDOSCOPY 08/12/2017 COLONOSCOPY 08/12/2017 Insurance Providers Payer Name Payer Address Payer Phone Subscriber Number Group Number Insured Name Patient Relationship to Insured Coverage Start Date Coverage End Date [facility] [address] [place], [place] [id number] MARILYKAEL GUZMÁN Self - patient is the insured Medical (General) History Medical History History ICD Code Colonosocpy 12-11-2002-negative except in t/ext hemorrhoids Graves' Disease Premature heartbeat--of no clinical sign ificance-on no Rx for it Denies [place],DM,CVA,Lung disease,renal dise ase Headaches from arthritis in neck Leg pain-has difficulty walking Surgical History Surgery Date(Month/Year) Appendectomy Johnny-D&C
--- OUTSIDE RECORDS SUMMARY | 2025-05-22 11:06 | XMS_ITS | Patient Health Record ---
Author Organization Matt Gomes MD Address [address] [place], [place] [id number] Care Team Providers Care Scorekeeper Name Role Phone Matt Gomes Primary Care [...] ff Reviewed date:07/03/2024 05:04:43 PM Interpretation: Performing Lab:[facility], [address] [place] [phone] Notes/Report: White Blood Count 5.9 4.8-10.8 X10*3/uL [...] NRBC Abs Auto 0.000 0.0-0.012 X10*3/uL Comprehensive [place]. Panel Fa st Reviewed date:07/03/2024 12:53:26 PM Interpretation: Performing Lab:[facility], [address] [place] [phone] Notes/Report: Sodium 142 135-145 mmol/L Potassium 4.0 3.3-5.1 mmol/L Chloride 107 96-108 mmol/L Carbon Dioxide 28 22-29 mmol/L Anion Gap 11 12-20 Blood Urea Nitrogen 14 9-16 mg/dL Creatinine 0.97 0.5-1.4 mg/dL Estimated Glomerular Filt Rate 58 NOTE: For -Senegalese individuals, multiply the result by 1.210. Chronic [...] Panel Reviewed date:07/03/2024 12:44:09 PM Interpretation: Performing Lab:[facility], [address] [place] [phone] Notes/Report: Triglycerides 119 <150 mg/dL Desirable Triglyceride: [...] t Reviewed date:07/03/2024 05:04:26 PM Interpretation: Performing Lab:[facility], [address] [place] [phone] Notes/Report: Urine, Clean Catch Color Urine Yellow Appearance Urine Cloudy PH 7.5 5.0-9.0 Glucose Urine UA Negative Negative mg/dL Urine Blood Negative Negative Specific [place] - Urine 1.015 1.005-1.025 Urine Protein Negative [...] date:07/31/2024 10:52:40 AM Interpretation: Performing Lab: Notes/Report: [address] [address] Ultrasound Report Signed Patient: Eulalia Brock MR#: [id number] 889 : 1960 Acct:[id number] Age/Sex: 63 / F ADM Date: 06/20/24 Loc: HO.US Attending Dr: Dada Patel MD Ordering Physician: Dada Patel MD Date of Service: 06/20/24 Procedure(s): US thyroid Accession Number(s): [id number] cc: Mtat Gomes MD; Dada Patel MD EXAMINATION: US [...] than or equal to 1 cm: 1. Tobacco Cloth Reclaimer nodules are described as follows: 1. Location: [...] 07/10/24 1732 DD/ 1431 TD/TT: 06/20/24 1443 Taker Off Braker Machine: [address] [address] Ultrasound Report Signed Patient: Everett Brock MR#: [id number] 889 : 1960 Acct:[id number] Age/Sex: 63 / F ADM Date: 06/20/24 Loc: .US Attending Dr: Dada Patel MD Ordering Physician: Dada Patel MD Date of Service: 06/20/24 Procedure(s): US thyroid Accession Number(s): [id number] cc: Matt Gomes MD; Dada Patel MD [...] than or equal to 1 cm: 1. Tobacco Cloth Reclaimer nodul es are described as follows: 1. [...] 07/10/24 1732 DD/ 1431 TD/TT: 06/20/24 1443 Taker Off Braker Machine: Pap Smear Reviewed date:03/30/2025 12:56:45 PM Interpretation: Performing Lab:[facility], [address] [place] [phone] Notes/Report: --- Name: Eulalia Brock Age/Sex: 64/F : 1960 Unit#: [id number] Attend Dr: Viral Thacker MD Re03/27/25 Status : DEP REF Location: [facility] Disch: --- SPEC : [id number] RECD : 03/28/25 STATUS: ELANA GILES NUM: [id number] EDWARD: 03/27/[address] [facility] [address]: Viral Thacker MD ENTERED: 03/28/25 [...] and HPV testing will be performed at [facility] (CLIA #[id number]), [address] [place] [address]. Testing for H PV was performed using [...] detected. All professional services are performed by [facility] ([address] [place] [address], [place] [address]; P h: [phone]; CLIA #[id number]). The PAP Test is a screening procedure with the inherent possibility of both false negative and false positive results. Results should be interpreted in the context of historic and current clinical findings. Reliability of the PAP Test is enhanced by performing the test on a regular repetit patrick basis. CONTINUED ON NEXT PAGE --- Name: Eulalia Brock Age/Sex: 64/F : 1960 Unit#: [id number] Attend Dr: Viral Thacker MD Re03/27/25 Status : DEP REF Location: [facility] Disch: --- SPEC : [id number] RECD : 03/28/25 STATUS: ELANA GILES NUM: [id number] EDWARD: 03/27/25-13[address] [facility] [address]: Viral Thacker MD ENTERED: 03/28/25-08 41 SP TYPE: Pap Smr OTHR DR: Matt Gomes MD ORDERED: Pap Smear Copies To: Matt Gomes MD [facility] [address] [facility] [address] [place] [address] Viral Thacker MD [facility] [address] [facility] [address] [place] [address] --- Signed (signature on file) Hank Armas [place] (ASC) 03/30/25 1041 --- END OF REPORT HPV High risk Reviewed date:04/02/2025 12:43:41 PM Interpretation: Performing Lab:[facility], [address] [place] [phone] Notes/Report: HPV High Risk Negative Negative HPV Genotype 16 Negative Negative HPV Genotype 18 Negative Negative HPV testing performed at [facility] (CLIA #[id number]) , [address] [place] [address]. Testing for HPV was performed using the [...] date:04/27/2025 04:42:37 PM Interpretation: Performing Lab: Notes/Report: [facility]'[address] [place], [place] [address] Mammography Report Signed Patient: Eulalia Brock MR#: [id number] 889 : 1960 Acct:[id number] Age/Sex: 64 / F ADM Date: 04/27/25 Loc: ANTONIA Attending Dr: Viral Thacker MD Ordering Physician: Viral Thacker MD Results: Date of Service: 04/27/25 Follow Up: Procedure(s): XR DEXA axial skeleton Accession Number(s): [id number] cc: Matt Gomes MD; Viral Thacker MD EXAMINATION: DXA BONE DENSITY AXIAL HISTORY: Z78.0 - Asymptomatic menopausal state TECHNIQUE: [employer] Dual energy absorptiometry (DEXA) of the lumbar [...] is a trademark of the [employer] [place] for Metabolic Bone Disease, a World Health Organization (WHO) Collaborating Center. Electronically signed by: Dada Mcclellan MD 04/27/2025 12:58 PM EDT Dictated By: Dada Mcclellan MD Signed By: <Electronically signed by Dada Mcclellan MD in OV> 04/27/25 1258 DD/ 1115 TD/TT: 04/27/25 1145 Taker Off Braker Machine: Kenia [facility]'s [address] [place], [place] [address] Mammography Report Signed Patient: Everett Brock MR#: [id number] 889 : 1960 Acct:[id number] Age/Sex: 64 / F ADM Date: 04/27/25 Loc: HO.MAMMO Attending Dr: Viral Thacker MD Ordering Physician: Viral Thacker MD Results: Date of Service: 04/27/25 Follow Up: Procedure(s): XR DEX A axial skeleton Accession Number(s): [id number] cc: Matt Gomes MD; Viral Thacker MD EXAMINATION: DXA BON E DENSITY AXIAL HISTORY: Z78.0 - Asymptomatic menopausal state TECHNIQUE: [employer] Dual energy absorptiometry (DEXA) of the lumbar [...] is a trademark of the [employer] [place] for Metabolic Bone Disease, a World Health Organization (WHO) Collaborating Center. Electronically arleen d by: Dada Mcclellan MD 04/27/2025 12:58 PM EDT RP Dictated By: Dada Mcclellan MD Signed By: <Electronically signed by Dada Mcclellan MD in OV> 04/27/25 1258 DD/ 1115 TD/TT: 04/27/25 1145 Taker Off Braker Machine: Reason For Referral No Information Medications Medication [...] Problem Status W/U Status Risk Notes Problem 201681071 Lumbar disc disease (M51.9) Active confirmed Problem 890486976 Rosacea (L71.9) Active confirmed Problem 40037499 Labile hypertension (I10) Active confirmed Problem 411899893 Graves disease (E05.00) Active confirmed Problem 910008879 Elevated cholesterol with elevated triglycerides (E78.2) Active confirmed Problem 432550504 Menopause (Z78.0) Active confirmed Problem 973922855 Schatzki's ring (K22.2) Active confirmed Problem 76912326 Elevated blood sugar (R73.9) Active confirmed Problem 49604419 Sciatica of righ t side (M54.31) Active confirmed Problem 53006017 Blepharitis (H01.009) Active confirmed Problem 589949246 Hordeol[employer] certified nurses aide um of right upper eyelid (H00.011) Active confirmed Problem 99625249 Bilateral carpal tunnel syndrome (G56.03) Active confirmed Problem 04338667 REEMA (obstructive sleep apnea) (G47.33) Active confirmed [...] Location Date Provider Diagnosis Matt Gomes MD [address] [place] [address] Drive [address] [place] [id number] 07/03/2024 Matt Gomes Blood tests for routine general physical examination Z00.00 ; Labile hypertension I10 ; Graves disease E05.00 and Elevated cholesterol with elevated triglycerides E78.2 Matt Gomes MD [address] [place] [address] Drive [address] [place] [id number] 07/10/2024 Matt Gomes Elevated cholesterol with elevated triglycerides E78.2 ; Annual physical exam Z00.00 ; Graves disease E05.00 ; Labile hypertension I10 ; REEMA (obstructive sleep apnea) G47.33 ; Colon cancer screening Z12.11 and Depression screening Z13.31 Matt Gomes MD [address] [place] [address] Drive [address] [place] [id number] 09/08/2024 Matt Gomes Left Achilles tendinitis M76.62 and Labile hypertension I10 Matt Gomes MD [address] [facility] [address] [place] [id number] 09/07/2024 Matt Gomes Achilles tendinitis of left lower extremity M76.62 Matt Gomes MD [address] [place] [id number] 04/30/2025 Matt Gomes Assessments Encounter Date Diagnosis [...] Name:Matt Flannery ier, 07/05/2025 08:00:00 AM, [address] [facility], [address], [place], [place], [phone], Provider Name:Matt Flannery ier, 07/12/2025 02:30:00 PM, [address] [facility], [address], [place], [place], [phone], Insurance Providers Payer Name Payer Address Payer Phone Subscriber Number Group Number Insured Name Patient Relationship to Insured Coverage Start Date Coverage End Date [employer]AGE PLAN [address] [place] [phone] [id number] Eulalia Brock Self - patient is the insured Medical (General) History Medical History History ICD Code PIZZA BAKER, 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 05/11/14, mammo refused 2020 still refusi ng 05/11/14 to schedule colonosc opy. is going to try again; colonoscopy done 10/01/17 w/Dr. Camarena - repeat 10 years IS ABLE TO TOLERATE MACROBID AND SYED is going jul 2017 Do yearly TSH for Graves Disease
== END 2025-05-22 11:12 | disposition home or self-care (01) ==
PROVIDERS: PCP Internal Medicine; Visit Provider Internal Medicine Endocrinology, Diabetes & Metabolism
DX: E05.90 Thyrotoxicosis, unspecified without thyrotoxic crisis or storm (principal); E04.1 Nontoxic single thyroid nodule
CPT/HCPCS: 99213

== ENCOUNTER → 2025-05-22 10:25 | Outpatient (BNVA) | payer MEDICARE, SELFPAY | PROVIDERS: PCP Internal Medicine; Visit Provider Internal Medicine Endocrinology, Diabetes & Metabolism | DX: E04.1 Nontoxic single thyroid nodule (principal); E05.90 Thyrotoxicosis, unspecified without thyrotoxic crisis or storm; M85.80 Other specified disorders of bone density and structure, unspecified site; E11.9 Type 2 diabetes mellitus without complications | CPT/HCPCS: 99212 ==

== ENCOUNTER 2025-06-15 08:15 | Outpatient (REF) | payer MEDICARE, SELFPAY ==
--- OUTSIDE RECORDS SUMMARY | 2024-07-10 09:00 | XMS_ITS ---
Author Organization Matt Gomes MD Address [address] [place], [place] [id number] Care Team Providers Care Editorial Writer Name Role Phone Matt Gomes Primary Care Provider Allergies Allergen (clinical drug ingredient) Drug/Non Drug Allergy documented on EMR Reaction Allergy Type Onset Date Status erythromycin erythromycin (uncoded) itchy Allergy Active levaquin (uncoded) itchy Allergy A ctive penicillin (uncoded) hives Allergy Active sulfamethoxazole / trimethoprim bactrim (uncoded) rash Allergy Active doxycycline Doxycycline itchy Drug Allergy Act patrick keflex (uncoded) itchy Allergy Act patrick tetracycline tetracycline (uncoded) itchy Allergy Active Results Component Value Reference Range Notes Occult Blood, Stool, Guaiac Reviewed date:07/10/2024 01:40:30 PM Interpretation:Negative Performing Lab: Notes/Report: Negative Occult Blood, Stool, Guaiac Neg REASON FOR VISIT annual visit Medications Medication SIG (Take, Route, Fr equency, Duration) Notes Start Date End Date Status methIMAzole 5 MG 31tablet Orally Once a day Active Social History Tobacco Use: Social History Observation Description Date Details (start date - stop date) Never Smoker NA - NA Tobacco Use/Smoking Question Answer Notes Patient is a nonsmoker Additional Findings: Tobacco Non-User Cu rrent non-smoker, currently using no form of tobacco Alcohol Screen Question Answer Notes Did you have a drink containing alcohol in the p ast year? No Points 0 Interpretation Negative Vital Signs Height 61 in 07/10/2024 Weight 127 lbs 07/10/2024 BMI 23.99 kg/m2 07/10/2024 weight is up 3 pounds since 02-07-24 Encounters Encounter Location Date Provider Diagnosis Matt Gomes MD [address] [place] [address] Drive [address] [place], [place] [phone] 07/10/2024 Matt Gomes Elevated cholesterol with elevated triglycerides E78.2 ; Annual physical exam Z00.00 ; Graves disease E05.00 ; Labile hypertension I10 ; REEMA (obstructive sleep apnea) G47.33 ; Colon cancer screening Z12.11 and Depression screening Z13.31 Assessments Encounter Date Diagnosis (ICD Code) Assessment Notes Treatment Notes Treatment Clinical Notes Section Notes 07/10/2024 Elevated cholesterol with elevated triglycerides (ICD-10 - E78.2) has good numbers 07/10/2024 Annual physical exam (ICD-10 - Z00.00) labs reviewed and discussed with patient 07/10/2024 Graves disease (ICD-10 - E05.00) being treated by dr patel 07/10/2024 Labile hypertension (ICD-10 - I10) well controlled, will contiue to monitor 07/10/2024 REEMA (obstructive sleep apnea) (ICD-10 - G47.33) never got studied. but says that if she sleeps on side doesn't happer 07/10/2024 Colon cancer screening (ICD-10 - Z12.11) guaiac negative 07/10/2024 Depression screening (ICD-10 - Z13.31) negative screen Plan Of Treatment Treatment Notes Assessment Notes Elevated cholesterol with el evated triglycerides has good numbers Annual physical exam labs reviewed and d iscussed with patient Graves disease being treated by dr patel Labile hypertension well controlled, grayson l contiue to monitor REEMA (obstructive sleep apnea) never got studied. but says that if she sleeps on side doesn't happer Colon cancer screening guaiac negative Depression screening negative screen Next Appt Details Follow Up: 1 Year, Reason: Provider Name:Matt Flannery ier, 07/05/2025 08:00:00 AM, [address], [address], [place], [place], [phone], Provider Name:Matt Flannery ier, 07/12/2025 02:30:00 PM, [address], [address], [place], [phone], Progress Notes * Eulalia CALIXTO ADOB:[birth year] (63 yo F)Acc No.[id number]:07/10/2024 Progress Notes Patient: Eulalia Alonzo A Provider: Dino Gomes MD :1960 A ge:63 Y S ex:Female Date:07/10/2024 Address:[address] [place] [address], [facility] Subjective: * Chief Complaints: * A nnual visit * HPI: D epression Screening: PHQ-9 L ittle interest or pleasure in doing things N ot at all, F eeling down, depressed, or hopeless N ot at all, T rouble falling or staying asleep, or sleeping too much N ot at all, F eeling tired or having little energy N ot at all, P oor appetite or overeating N ot at all, F eeling bad about yourself or that you are a failure, or have let yourself or your family down N ot at all, T rouble concentrating on things, such as reading the newspaper or watching television N ot at all, M oving or speaking so slowly that other people could have noticed; or the opposite, being so fidgety or restless that you have been moving around a lot more than usual N ot at all, T houghts that you would be better off or of hurting yourself in some way N ot at all, T otal Score 0 . I nterpretation and Intervention D epression Screening Findings N egative, F ollow-Up for Depression : review of PHQ-9 found negative result, no follow-up needed. patient is a 63 yo female here for yearly evaluation with review of recent labs and follow up of chronic issues. C ommunication Needs: Communication Needs D oes the patient have a hearing impairment N o, D oes the patient have a vision impairment? Y es, I f yes, what is the vision impairment? G lasses, D oes the patient have a cognition impairment? N o. F all Risk: History H ave you had any falls with injury in the past year? N o, H ave you had two or more falls in the past year? N o. S KATHLEEN Questions: SDOH Questions I n the past year have you been worried about losing housing? N o, I n the past year have you or any family members you live with been unable to get any of the following when it was really needed? Check all that apply: N one. * ROS: G eneral/Constitutional: Patient denies f atigue , headache. C hange in appetite?denies. C hills d enies. F ever d enies. O phthalmologic: Blurred vision d enies. D ischarge d enies. P ain d enies. E NT: Patient denies d ecreased sense of smell , any loss of taste , sore throat. D ecreased hearing d enies. S ore throat d enies. S wollen glands d enies. E ndocrine: Cold intolerance d enies. E xcessive thirst d enies. H eat intolerance d enies. W eight loss d enies. R espiratory: Cough d enies. S hortness of breath at rest d enies. S hortness of breath with exertion d enies. W heezing d enies. C ardiovascular: Chest pain at rest d enies. C hest pain with exertion?denies. I rregular heartbeat d enies. S hortness of breath d enies. ? G astrointestinal: Abdominal pain d enies. C hange in bowel habits d enies. D iarrhea d enies. N ausea d enies. R ectal bleeding d enies. V omiting d enies . G enitourinary: Blood in urine d enies. D ifficulty urinating d enies. F requent urination d enies. U rinary incontinence D enies. M usculoskeletal: Patient denies m uscle aches. P ainful joints d enies. W eakness d enies. P eripheral Vascular: Patient denies r ed and blue toes. S kin: Dry skin d enies. I tching d enies. D enies?Mole(s), changes in moles, new moles or any lesions of concern. D enies P hotosensitivity. R moisés d enies. N eurologic: Dizziness d enies. F ainting d enies. H eadache?denies. * Medical History: * Surgical History: * Hospitalization/Major Diagno stic Procedure: * Family History: F ather: 69 yrs. M other: 76 yrs. 1 brother(s) , 3 sister(s) . 2 daughter(s) - healthy. . multiple kidney stones in family father, Mesotheliaoma mother, lung cancer sisters with kidney stones and asthma, Denies mental health/substance abuse family history, Denies mental health/substance abuse family history, Denies mental health/substance abuse family history. * Social History: T obacco Use: T obacco Use/Smoking P atient is a n onsmoker, A dditional Findings: Tobacco Non-User C urrent non-smoker, currently using no form of tobacco. D rugs/Alcohol: A lcohol Screen D id you have a drink containing alcohol in the past year? N o, P oints 0 , I nterpretation N egative. M iscellaneous: C affeine: yes, frequency. Children: yes. Community involvements: yes. Exercise: yes, runs up and down stairs at home, moves fast. Home smoke detector use: yes. Housing: owning. Living with: spouse. Marital status: . Occupation: unemployed. Others at home: none. Pets: none. no Travel outside of the [place]. * Medications: T akingmethIMAzole 5 MG Tablet 31tablet Orally Once a dayMedication List reviewed and reconciled with the patientTaking methIMAzole 5 MG Tablet 31tablet Orally Once a dayMedication List reviewed and reconciled with the patient * Allergies: b actrim: rashpenicillin: hiveslevaquin: itchyerythromycin: itchytetracycline: itchykeflex: itchyDoxycycline: itchyyes[Allergies Verified] Objective: * Vitals: H t: 61, Wt:127, BMI:23.99 weight is up 3 pounds since 02-07-24. * P ast Orders: L ab:Comprehensive [place]. Panel Fast (Order Date - 07/03/2024) (Collection Date - 07/03/2024) Value Reference Range Sodium 142 135-145 - mmol/L Bilirubin Total 0.8 0.0-1.0 - mg/dL Aspartate Amino Transferase 19 5-31 - U/L Alanine Aminotransferase 13 0-31 - U/L Total Protein 7.2 6.5-8.0 - g/dL Albumin Level 4.2 3.5-5.0 - g/dL Alkaline Phosphatase 93 39-117 - U/L Potassium 4.0 3.3-5.1 - mmol/L Chloride 107 96-108 - mmol/L Carbon Dioxide 28 22-29 - mmol/L Anion Gap 11 L 12-20 - Blood Urea Nitrogen 14 9-16 - mg/dL Creatinine 0.97 0.5-1.4 - mg/dL Estimated Glomerular Filt Rate 58 - Glucose Fasting 96 60-99 - mg/dL Calcium 9.9 8.4-10.2 - mg/dL L ab:Lipid Panel (Order Date - 07/03/2024) (Collection Date - 07/03/2024) Value Reference Range Triglycerides 119 <150 - mg/dL Cholesterol 241 H <200 - mg/dL LDL Cholesterol Calculated 141 H <100 - mg/dL HDL Cholesterol 77 >40 - mg/dL L ab:Complete Blood Count Auto Diff (Order Date - 07/03/2024) (Collection Date - 07/03/2024) Value Reference Range White Blood Count 5.9 4.8-10.8 - X10*3/uL Red Blood Count 5.07 4.20-5.50 - X10*6/uL Hemoglobin 15.4 12.0-16.0 - g/dl Hematocrit 45.5 37.0-47.0 - % Mean Corpuscular Volume 89.7 80.0-98.0 - fL Mean Corpuscular Hemoglobin 30.4 27.0-33.0 - pg Mean Corpuscular HGB Conc 33.8 31.0-35.0 - g/ dl Red Cell Distribution Width 12.9 11.0-16.0 - % Platelet Count 236 160-400 - X10*3/uL Mean Platelet Volume 10.0 9.4-12.3 - fL Neutrophils Percent Auto 62.7 45-73 - % Imm Gran Pct Auto 0.2 0.0-0.4 - % Lymphocytes Percent Auto 24.4 20-40 - % Monocytes Percent Auto 8.8 2-11 - % Eosinophils Percent Auto 2.9 0-4 - % Basophils Percent Auto 1.0 0-2 - % NRBC Pct Auto 0.0 0.0-0.2 - /100WBC Neutrophils Absolute Auto 3.7 2.0-8.3 - x10* 3/uL Imm Gran Abs Auto 0.01 0.00-0.03 - X10*3/uL Lymphocytes Absolute Auto 1.4 1.2-4.9 - X10* 3/uL Monocytes Absolute Auto 0.5 0.1-1.2 - X10*3/ uL Eosinophils Absolute Auto 0.2 0.0-0.4 - X10* 3/uL Basophils Absolute Auto 0.1 0.0-0.2 - X10*3/ uL NRBC Abs Auto 0.000 0.0-0.012 - X10*3/uL L ab:UA ClnCatch+Micro w/rflx Cult (Order Date - 07/03/2024) (Collection Date - 07/03/2024) Value Reference Range Color Urine Yellow - Appearance Urine Cloudy - PH 7.5 5.0-9.0 - Glucose Urine UA Negative Negative - mg/dL Urine Blood Negative Negative - Specific [place] - Urine 1.015 1.005-1.025 - Urine Protein Negative Neg-Trace - mg/dL Urine Ketones Negative Negative - mg/dL Nitrite Urine Negative Negative - Leukocyte Esterase Urine Negative Negative - RBC Urine 0-2 0-2 - /HPF WBC Urine 0-5 0-5 - /HPF Squamous Epithelial Cell Urine 0-2 0-2 - /HP F Bacteria Urine None Seen None Seen - Hyaline Casts Urine 0-2 0-2 - /LPF * Examination: G eneral Examination: GENERAL APPEARANCE: w ell developed, well nourished, in no acute distress. HEAD: n ormocephalic, atraumatic. EYES: p upils equal, round, reactive to light and accommodation, sclera non-icteric. EARS: n ormal. ORAL CAVITY: m ucosa moist. THROAT: c lear. NECK/THYROID: n umu supple, full range of motion, no cervical lymphadenopathy, no bruits. SKIN: w arm and dry, no suspicious lesions. HEART: r egular rate and rhythm, S1, S2 normal, no murmurs.? LUNGS: c lear to auscultation bilaterally. BREASTS: N o mass, no lump. ABDOMEN: s oft, nontender, nondistended, bowel sounds present, normal, no organomegaly , no masses palpable. RECTAL EXAM: n o external hemorrhoids, stool guaiac negative, mass palpable. FEMALE GENITOURINARY: d one by unit manager. EXTREMITIES: n o clubbing, cyanosis, or edema has spider veins. NEUROLOGIC: n onfocal, motor strength normal upper and lower extremities, sensory exam intact. Assessment: * Assessment: 1. A nnual physical exam - Z00.00 (Primary) 2 . E levated cholesterol with elevated triglycerides - E78.2 3 . G raves disease - E05.00 4 . L abile hypertension - I10 5 . O SA (obstructive sleep apnea) - G47.33 6 . C olon cancer screening - Z12.11 7 . Depression screening - Z13.31 Plan: * Treatment: 2. E levated cholesterol with elevated triglycerides Notes: has good numbers 3. G raves disease Notes: being treated by dr patel 4. L abile hypertension Notes: well controlled, will contiue to monitor 5. O SA (obstructive sleep apnea) Notes: never got studied. but says that if she sleeps on side doesn't happer 6. C olon cancer screening L AB: Occult Blood, Stool, Guaiac N egative Value Reference Range O ccult Blood, Stool, Guaiac Neg Notes: guaiac negative??7.?Depression screening? Notes: negative screen?? * Procedure Codes: 8 2270 TEST FOR BLOOD, FECES * Follow Up: 1 Year * * Sign off status: Completed true * Provider: Dino Gomes MD Date: 0 07/10/2024 Generated for Julito waters/Skylar/eTransmitting on: 0 06/15/2025 09:01 AM EDT History and Physical Notes * HPI (History of Present Illness) Category Sub-Category Detail Notes Category Not es Depression Screening PHQ-9 Little inte rest or pleasure in doing things: Not at all patient is a 63 yo female here for yearly evaluation with review of recent labs and follow up of chronic issues. Feeling down, depressed, or hopeless: No t at all Trouble falling or staying asleep, or sl eeping too much: Not at all Feeling tired or having little energy: N ot at all Poor appetite or overeating: Not at all Feeling bad about yourself o r that you are a failure, or have let yourself or your family down: Not at all Trouble concentrating on thi ngs, such as reading the newspaper or watching television: Not at all Moving or speaking so slowly that other people could have noticed; or the opposite, being so fidgety or restless that you have been moving around a lot more than usual: Not at all Thoughts that you would be b shirlene off or of hurting yourself in some way: Not at all Total Score: 0 Interpretation and Intervention Depression Landon salgado Findings: Negative Follow-Up for Depression: : review of PH Q-9 found negative result, no follow-up needed SDOH Questions SDOH Questions In the past year have you been worried about losing housing?: No In the past year have you or any family members you live with been unable to get any of the following when it was really needed? Check all that apply:: None Fall Risk History Have you had any falls with injury i n the past year?: No Have you had two or more falls in the st year?: No Communication Needs Communication Needs Does the patient have a hearing impairment: No Does the patient have a vision impairmen t?: Yes If yes, what is the vision impairment?: Glasses Does the patient have a cognition impair ment?: No Examination Category Sub-Category Detail Notes Category Not es General Examination GENERAL APPEARANCE: well dev eloped, well nourished, in no acute distress HEAD: normocephalic, atrau matic EYES: pupils equal, round, reactive to light and accommodation, sclera non-icteric EARS: normal THROAT: clear NECK/THYROID: neck supple, full ra nge of motion, no cervical lymphadenopathy, no bruits HEART: regular rate and rhy thm, S1, S2 normal, no murmurs LUNGS: clear to auscultatio n bilaterally ABDOMEN: soft, nontender, non distended, bowel sounds present, normal, no organomegaly , no masses palpable NEUROLOGIC: nonfocal, motor stre ngth normal upper and lower extremities, sensory exam intact SKIN: warm and dry, no misyt picious lesions EXTREMITIES: no clubbing, cyanosi s, or edema has spider veins BREASTS: No mass, no lump RECTAL EXAM: no external hemorrho ids, stool guaiac negative, mass palpable FEMALE GENITOURINARY: done by unit manager ORAL CAVITY: mucosa moist
--- OUTSIDE RECORDS SUMMARY | 2024-09-07 01:45 | XMS_ITS ---
Author Organization Matt Gomes MD Address [address] [place] [phone] Care Team Providers Care Decorator Mannequin Name Role Phone Matt Gomes Primary Care Provider REASON FOR VISIT pain near my carol's tendon Encounters Encounter Location Date Provider Diagnosis Matt Gomes MD [address] [place] [phone] 09/07/2024 Matt Gomes Achilles tendinitis of left lower extremity M76.62 Assessments Encounter Date Diagnosis (ICD Code) Assessment Notes Treatment Notes Treatment Clinical Notes Section Notes 09/07/2024 Achilles tendinitis of left lower extremity (ICD-10 - M76.62) Plan Of Treatment Pending Test Test Name Order Date VENOGRAM UNILATERAL 09/07/2024 Next Appt Details Provider Name:Matt sam, 07/05/2025 08:00:00 AM, [address] [place] [address], [address], [phone], Provider Name:Matt sam, 07/12/2025 02:30:00 PM, [address], [address], [place], [place], [phone], Progress Notes * Eulalia CALIXTO ADOB:[birth year] (64 yo F)Acc No.[id number]:09/07/2024 Patient: Eulalia Alonzo :1960 A ge:64 Y S ex:Female Address:[address] [place] [id number] Subjective: * Chief Complaints: * P ain near my carol's tendon * Medical History: * Surgical History: * Hospitalization/Major Diagno stic Procedure: * Medications: Objective: Assessment: * Assessment: 1. A chilles tendinitis of left lower extremity - M76.62 Plan: * Treatment: * Procedure Codes: * true * Date: Generated for Julito waters/Skylar/Jaiitting on: 0 06/15/2025 09:02 AM EDT
--- OUTSIDE RECORDS SUMMARY | 2024-09-08 06:00 | XMS_ITS ---
Author Organization Matt Gomes MD Address [address] [place], [place] [phone] Care Team Providers Care Chiropractor Sole Practitioner Name Role Phone Matt Gomes Primary Care Provider [phone] REASON FOR VISIT patient wants to talk [...] Gomes MD [address] [place], [place] [phone] 09/08/2024 Matt Gomes Left Achilles tendinitis M76.62 [...] Follow Up: 3 Months, Reason: Provider Name:Matt Eileen Flannery ier, 07/05/2025 08:00:00 AM, [address], [address], [place], [place], [phone], Provider Name:Matt Flannery ier, 07/12/2025 02:30:00 PM, [address], [address], [place], [place], [phone], Progress Notes * Eulalia CALIXTO ADOB:[birth year] (64 yo F)Acc No.[id number]:09/08/2024 Progress Notes Patient: Eulalia Alonzo A Provider: Dino Gomes MD :1960 A ge:64 Y S ex:Female Date:09/08/2024 Address:[address] [place] [address], [facility] Subjective: * Chief Complaints: * P atient [...] Gomes MD Date: 11/08/2023 Generated for Julito waters/Skylar/Jaiitting on: 0 06/15/2025 09:03 AM EDT History and Physical Notes * [...]
--- OUTSIDE RECORDS SUMMARY | 2024-12-08 12:00 | XMS_ITS ---
Author Organization Matt Gomes MD Address [address] [place], [place] [phone] Care Team Providers Care Market Stall Vendor Name Role Phone Matt Gomes Primary Care [...] Date Provider Diagnosis Matt Gomes MD [address] [place], [place] [phone] 12/08/2024 Matt Gomes Plan Of Treatment Next Appt Details Provider Name:Matt sam, 07/05/2025 08:00:00 AM, [address], [address], [place], [place], [phone], Provider Name:Matt Flannery ier, 07/12/2025 02:30:00 PM, [address], [address], [place], [place], [phone], Progress Notes * Eulalia CALIXTO ADOB:[birth year] (64 yo F)Acc No.[id number]:12/08/2024 Progress Notes Patient: Eulalia TANG A Provider: Dino Gomes MD :1960 A ge:64 Y S ex:Female Date:12/08/2024 Address:[address] [place] [address], [place], [place] Subjective: * Chief Complaints: * 1 . [...] MD Date: 0 12/08/2024 Generated for Julito waters/Skylar/eTthiensmitting on: 0 06/15/2025 09:02 AM EDT
--- OUTSIDE RECORDS SUMMARY | 2025-04-30 08:18 | XMS_ITS ---
Author Organization Matt Gomes MD Address [address] [place] [phone] Care Team Providers Care Rail Assembler Name Role Phone Matt Gomes Primary Care Provider REASON FOR VISIT Quick question Encounters Encounter Location Date Provider Diagnosis Matt Gomes MD 10 [facility] [address] [place] [phone] 04/30/2025 Mtat Gomes Plan Of Treatment Next Appt Details Provider Name:Matt Flannery ielance, 07/05/2025 08:00:00 AM, [address] [place] [address], [address] [place] [address], [phone], Provider Name:Matt sam, 07/12/2025 02:30:00 PM, [address] [place] [address], [place] [address], [place], [place], [phone], Progress Notes * Eulalia CALIXTO ADOB:[birth year] (64 yo F)Acc No.[id number]:04/30/2025 Patient: Eulalia TANG :1960 A ge:64 Y S ex:Female Address:[address] [place] [address], [place] [address] * true * Date: Generated for Julito waters/Skylar/Britney on: 0 06/15/2025 09:02 AM EDT
--- OUTSIDE RECORDS SUMMARY | 2025-06-15 09:02 | XMS_ITS | Patient Health Record ---
Author Organization [facility] Ashu Kellogg Address [address] [place] [address] Care Team Providers Care Railroad Brake Repairer Name Role Phone Mireya AKERS, Matt Primary Care Provider Chance Thompson Unavailable [phone] Allergies Allergen (clinical drug ingredient) Drug/Non Drug [...] Calcium 1 tab Oral Active vitamin Active [place] 3 1000 MG 1 capsule Orally Onc [...] Status W/U Status Risk Notes Problem Onychomycosis (395803524) Onychomycosis (110.1) Active confirmed Just starting Topical tx NOW Problem Pain in Limb (729.5) Active confirmed Plan Of Treatment Pending Test Test Name Order Date [id number] NAIL, 1-5 06/04/2014 14471-JJFHGHU NAIL, 1-5 09/03/2014 Insurance Providers Payer Name Payer Address Payer Phone Subscriber Number Group Number Insured Name Patient Relationship to Insured Coverage Start Date Coverage End Date [facility] [address] [place] [address] [id number] DINESH CALXITO Spouse - patient is the spouse of the insured Medical (General) History Medical History History ICD Code Anemia Back,Hip,and Knee pain Migraines Eczema Thyroid disorder Chicken pox Measles Mumps Transfusions Surgical History Surgery Date(Month/Year) appendectomy D&C
--- OUTSIDE RECORDS SUMMARY | 2025-06-15 09:02 | XMS_ITS | Patient Health Record ---
Author Organization Matt Gomes MD Address [address] [place], [place] [phone] Care Team Providers Care Garden Labourer Name Role Phone Matt Gomes Primary Care [...] Active Results Component Value Reference Range Notes Complete Blood Count Auto Di ff Reviewed date:07/03/2024 05:04:43 PM Interpretation: Performing Lab:[facility], [address] [place] [phone] Notes/Report: White Blood Count 5.9 4.8-10.8 X10*3/uL [...] NRBC Abs Auto 0.000 0.0-0.012 X10*3/uL Comprehensive [place]. Panel Fa st Reviewed date:07/03/2024 12:53:26 PM Interpretation: Performing Lab:[facility], [address] [place] [phone] Notes/Report: Sodium 142 135-145 mmol/L Potassium 4.0 3.3-5.1 mmol/L Chloride 107 96-108 mmol/L Carbon Dioxide 28 22-29 mmol/L Anion Gap 11 12-20 Blood Urea Nitrogen 14 9-16 mg/dL Creatinine 0.97 0.5-1.4 mg/dL Estimated Glomerular Filt Rate 58 NOTE: For -Malagasy individuals, multiply the result by 1.210. Chronic [...] Panel Reviewed date:07/03/2024 12:44:09 PM Interpretation: Performing Lab:[facility], [address] [place] [phone] Notes/Report: Triglycerides 119 <150 mg/dL Desirable Triglyceride: [...] t Reviewed date:07/03/2024 05:04:26 PM Interpretation: Performing Lab:[facility], [address] [place] [phone] Notes/Report: Urine, Clean Catch Color Urine Yellow Appearance Urine Cloudy PH 7.5 5.0-9.0 Glucose Urine UA Negative Negative mg/dL Urine Blood Negative Negative Specific [place] - Urine 1.015 1.005-1.025 Urine Protein Negative [...] date:07/31/2024 10:52:40 AM Interpretation: Performing Lab: Notes/Report: [address] [address] Ultrasound Report Signed Patient: Eulalia Brock MR#: [id number] 889 : 1960 Acct:[id number] Age/Sex: 63 / F ADM Date: 06/20/24 Loc: HO.US Attending Dr: Dada Patel MD Ordering Physician: Dada Patel MD Date of Service: 06/20/24 Procedure(s): US thyroid Accession Number(s): [id number] cc: Matt Gomes MD; Dada Patel MD [...] than or equal to 1 cm: 1. Biofuels Manager nodules are described as follows: 1. Location: [...] 07/10/24 1732 DD/ 1431 TD/TT: 06/20/24 1443 Anti Tank Missileman: [address] [address] Ultrasound Report Signed Patient: Everett Brock MR#: [id number] 889 : 1960 Acct:[id number] Age/Sex: 63 / F ADM Date: 06/20/24 Loc: .US Attending Dr: Dada Patel MD Ordering Physician: Dada Patel MD Date of Service: 06/20/24 Procedure(s): US thyroid Accession Number(s): [id number] cc: Matt Gomes MD; Dada Patel MD [...] than or equal to 1 cm: 1. Biofuels Manager nodul es are described as follows: 1. [...] 07/10/24 1732 DD/ 1431 TD/TT: 06/20/24 1443 Anti Tank Missileman: Pap Smear Reviewed date:03/30/2025 12:56:45 PM Interpretation: Performing Lab:[facility], [address] [place] [phone] Notes/Report: --- Name: Eulalia Brock Age/Sex: 64/F : 1960 Unit#: [id number] Attend Dr: Viral Thacker MD Re03/27/25 Status : DEP REF Location: [facility] Disch: --- SPEC : [id number] RECD : 03/28/25 STATUS: ELANA GILES NUM: [id number] EDWARD: 03/27/[address] [facility] [address]: Viral Thacker MD ENTERED: 03/28/25 [...] and HPV testing will be performed at [facility] (CLIA #[id number]), [address] [place] [address]. Testing for H PV was performed using [...] detected. All professional services are performed by [facility] ([address] [place] [address], [place] [address]; P h: [phone]; CLIA #[id number]). The PAP Test is a screening procedure with the inherent possibility of both false negative and false positive results. Results should be interpreted in the context of historic and current clinical findings. Reliability of the PAP Test is enhanced by performing the test on a regular repetit patrick basis. CONTINUED ON NEXT PAGE --- Name: Eulalia Brock Age/Sex: 64/F : 1960 Unit#: [id number] Attend Dr: Viral Thacker MD Re03/27/25 Status : DEP REF Location: [facility] Disch: --- SPEC : [id number] RECD : 03/28/25 STATUS: ELANA GILES NUM: [id number] EDWARD: 03/27/25-[address] [facility] [address]: Viral Thacker MD ENTERED: 03/28/25-08 41 SP TYPE: Pap Smr OTHR DR: Matt Gomes MD ORDERED: Pap Smear Copies To: Matt Gomes MD [facility] [address] [facility] [address] [place] [address] Viral Thacker MD [facility] [address] [facility] [address] [place] [address] --- Signed (signature on file) Hank Armas [place] (ASC) 03/30/25 1041 --- END OF REPORT HPV High risk Reviewed date:04/02/2025 12:43:41 PM Interpretation: Performing Lab:[facility], [address] [place] [phone] Notes/Report: HPV High Risk Negative Negative HPV Genotype 16 Negative Negative HPV Genotype 18 Negative Negative HPV testing performed at [facility] (CLIA #[id number]) , [address] [place] [address]. Testing for HPV was performed using the [...] date:04/27/2025 04:42:37 PM Interpretation: Performing Lab: Notes/Report: [facility]'[address] [place], [place] [address] Mammography Report Signed Patient: Eulalia Brock MR#: [id number] 889 : 1960 Acct:[id number] Age/Sex: 64 / F ADM Date: 04/27/25 Loc: ANTONIA Attending Dr: Viral Thacker MD Ordering Physician: Viral Thacker MD Results: Date of Service: 04/27/25 Follow Up: Procedure(s): XR DEXA axial skeleton Accession Number(s): [id number] cc: Matt Gomes MD; Viral Thacker MD EXAMINATION: DXA BONE DENSITY AXIAL HISTORY: Z78.0 - Asymptomatic menopausal state TECHNIQUE: [employer] Dual energy absorptiometry (DEXA) of the lumbar [...] is a trademark of the [employer] [place] for Metabolic Bone Disease, a World Health Organization (WHO) Collaborating Center. Electronically signed by: Dada Mcclellan MD 04/27/2025 12:58 PM EDT Dictated By: Dada Mcclellan MD Signed By: <Electronically signed by Dada Mcclellan MD in OV> 04/27/25 1258 DD/ 1115 TD/TT: 04/27/25 1145 Anti Tank Missileman: Kenia [facility]'s [address] [place], [place] [address] Mammography Report Signed Patient: Everett Brock MR#: [id number] 889 : 1960 Acct:[id number] Age/Sex: 64 / F ADM Date: 04/27/25 Loc: HO.MAMMO Attending Dr: Viral Thacker MD Ordering Physician: Viral Thacker MD Results: Date of Service: 04/27/25 Follow Up: Procedure(s): XR DEX A axial skeleton Accession Number(s): [id number] cc: Matt Gomes MD; Viral Thacker MD EXAMINATION: DXA BON E DENSITY AXIAL HISTORY: Z78.0 - Asymptomatic menopausal state TECHNIQUE: [employer] Dual energy absorptiometry (DEXA) of the lumbar [...] of the [employer] [place] for Metabolic Bone Disease, a World Health Organization (WHO) Collaborating Center. Electronically arleen d by: Dada Mcclellan MD 04/27/2025 12:58 PM EDT RP Dictated By: Dada Mcclellan MD Signed By: <Electronically signed by Dada Mcclellan MD in OV> 04/27/25 1258 DD/ 1115 TD/TT: 04/27/25 1145 Anti Tank Missileman: Reason For Referral No Information Medications Medication [...] Problem Status W/U Status Risk Notes Problem 118330860 Lumbar disc disease (M51.9) Active confirmed Problem 889288638 Rosacea (L71.9) Active confirmed Problem 76879601 Labile hypertension (I10) Active confirmed Problem 679494075 Graves disease (E05.00) Active confirmed Problem 098526420 Elevated cholesterol with elevated triglycerides (E78.2) Active confirmed Problem 553384236 Menopause (Z78.0) Active confirmed Problem 532747983 Schatzki's ring (K22.2) Active confirmed Problem 91495842 Elevated blood sugar (R73.9) Active confirmed Problem 48299302 Sciatica of righ t side (M54.31) Active confirmed Problem 90752758 Blepharitis (H01.009) Active confirmed Problem 241131067 Hordeolum rn quality um of right upper eyelid (H00.011) Active confirmed Problem 68672807 Bilateral carpal tunnel syndrome (G56.03) Active confirmed Problem 32771570 REEMA (obstructive sleep apnea) (G47.33) Active confirmed [...] Location Date Provider Diagnosis Matt Gomes MD [address] [place] [address] Drive [address] [place] [id number] 07/03/2024 Matt Gomes Blood tests for routine general physical examination Z00.00 ; Labile hypertension I10 ; Graves disease E05.00 and Elevated cholesterol with elevated triglycerides E78.2 Matt Gomes MD [address] [place] [address] Drive [address] [place] [id number] 07/10/2024 Matt Gomes Elevated cholesterol with elevated triglycerides E78.2 ; Annual physical exam Z00.00 ; Graves disease E05.00 ; Labile hypertension I10 ; REEMA (obstructive sleep apnea) G47.33 ; Colon cancer screening Z12.11 and Depression screening Z13.31 Matt Gomes MD [address] [place] [address] [address] [place] [id number] 09/08/2024 Matt Gomes Left Achilles tendinitis M76.62 and Labile hypertension I10 Matt Gomes MD [address] [facility] [address] [place] [id number] 09/07/2024 Matt Gomes Achilles tendinitis of left lower extremity M76.62 Matt Gomes MD [address] [facility] [address] [place] [id number] 04/30/2025 Matt Gomes Assessments Encounter Date Diagnosis [...] Name:Matt Flannery ier, 07/05/2025 08:00:00 AM, [address] [facility], [address], [place], [place], [phone], Provider Name:Matt Flannery ier, 07/12/2025 02:30:00 PM, [address] [facility], [address], [place], [place], [phone], Insurance Providers Payer Name Payer Address Payer Phone Subscriber Number Group Number Insured Name Patient Relationship to Insured Coverage Start Date Coverage End Date [employer] ADVANTAGE PLAN [address] [place] [phone] [id number] Eulalia Brock Self - patient is the insured Medical (General) History Medical History History 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 05/11/14, mammo refused 2020 still refusi ng 05/11/14 to schedule colonosc opy. is going to try again; colonoscopy done 10/01/17 w/Dr. Camarena - repeat 10 years IS ABLE TO TOLERATE MACROBID AND SYED is going jul 2017 Do yearly TSH for Graves Disease
--- OUTSIDE RECORDS SUMMARY | 2025-06-15 09:03 | XMS_ITS | Patient Health Record ---
Author Organization [facility] Address [address] [place] [address] Care Team Providers Care Recorder Helper Seismograph Name Role Phone Matt Gomes MD Primary Care Provider Dada Mendez [phone] Allergies Allergen (clinical drug ingredient) Drug/Non Drug [...] Problem Status W/U Status Risk Notes Problem 330865334 Encounter for screening for malignant neoplasm of colon (Z12.11) Active confirmed Problem 95909311 Pharyngoesophage al dysphagia (R13.14) Active confirmed Plan Of Treatment Future Test Test Name Order Date COLONOSCOPY 10/26/2012 UPPER GI ENDOSCOPY 08/12/2017 COLONOSCOPY 08/12/2017 Insurance Providers Payer Name Payer Address Payer Phone Subscriber Number Group Number Insured Name Patient Relationship to Insured Coverage Start Date Coverage End Date [facility] [address] [place], [place] [phone] [id number] MARILYKAEL GUZMÁN Self - patient is the insured Medical (General) History Medical History History ICD Code Colonosocpy 12-11-2002-negative except in t/ext hemorrhoids Graves' Disease Premature heartbeat--of no clinical sign ificance-on no Rx for it Denies [place],DM,CVA,Lung disease,renal dise ase 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
[2025-06-15 13:15] LABS: Free T4 (Free Thyroxine) 0.82 ng/dL (0.71-1.85); Thyroid Stimulating Hormone 0.89 uIU/mL (0.32-4.0)
== END 2025-06-15 08:16 | disposition home or self-care (01) ==
LOC: HO.10HDL 08:15
PROVIDERS: Visit Provider Internal Medicine Endocrinology, Diabetes & Metabolism
DX: E05.90 Thyrotoxicosis, unspecified without thyrotoxic crisis or storm (principal)
CPT/HCPCS: 36415; 84439; 84443; 84481

== ENCOUNTER 2025-07-05 10:27 | Outpatient (REF) | payer MEDICARE, SELFPAY ==
[2025-07-05 10:30] LABS: MANUAL DIFF FLAG NO
[2025-07-05 11:00] LABS: Hematocrit 44.6 % (37.0-47.0); Hemoglobin 15.0 g/dl (12.0-16.0); Imm Gran Abs Auto 0.02 X10*3/uL (0.00-0.03); Imm Gran Pct Auto 0.4 % (0.0-0.4); Lymphocytes Absolute Auto 1.5 X10*3/uL (1.2-4.9); Mean Corpuscular HGB Conc 33.6 g/dl (31.0-35.0); Mean Corpuscular Hemoglobin 30.1 pg (27.0-33.0); Mean Corpuscular Volume 89.6 fL (80.0-98.0); NRBC Abs Auto 0.000 X10*3/uL (0.0-0.012); NRBC Pct Auto 0.0 /100WBC (0.0-0.2); Platelet Count 226 X10*3/uL (160-400); Red Blood Count 4.98 X10*6/uL (4.20-5.50); White Blood Count 5.6 X10*3/uL (4.8-10.8)
[2025-07-05 11:07] LABS: Appearance Urine Clear; Glucose Urine UA Negative (Negative); PH 6.5 (5.0-9.0); Specific Gravity - Urine 1.020 (1.005-1.025)
[2025-07-05 11:19] LABS: Hemoglobin A1C 156.4185 umol/L; Total Hemoglobin (HGBA1C) 3903.4007 umol/L
[2025-07-05 11:43] LABS: Alanine Aminotransferase 12 U/L (0-31); Albumin Level 4.3 g/dL (3.5-5.0); Alkaline Phosphatase 85 U/L (39-117); Anion Gap 9 (12-20); Aspartate Amino Transferase 25 U/L (5-31); Blood Urea Nitrogen 19 mg/dL (9-16); Calcium 9.5 mg/dL (8.4-10.2); Carbon Dioxide 31 mmol/L (22-29); Chloride 109 mmol/L (96-108); Cholesterol 224 mg/dL (<200); Estimated Glomerular Filt Rate > 60; HDL Cholesterol 79 mg/dL (>40); Potassium 3.8 mmol/L (3.3-5.1); Sodium 145 mmol/L (135-145); Total Protein 6.9 g/dL (6.5-8.0); Triglycerides 66 mg/dL (<150)
== END 2025-07-05 10:28 | disposition home or self-care (01) ==
LOC: HO.LNP 10:27
PROVIDERS: Visit Provider Internal Medicine
DX: Z00.00 Encounter for general adult medical examination without abnormal findings (principal); I10 Essential (primary) hypertension; E05.00 Thyrotoxicosis with diffuse goiter without thyrotoxic crisis or storm; E78.2 Mixed hyperlipidemia; R73.9 Hyperglycemia, unspecified
CPT/HCPCS: 80053; 80061; 81001; 83036; 84443; 85025

== ENCOUNTER 2025-07-17 13:08 | Outpatient (REF) | payer MEDICARE, SELFPAY ==
--- OUTSIDE RECORDS SUMMARY | 2024-09-08 06:00 | XMS_ITS ---
Author Organization Matt Gomes MD Address [address] [place], [place] [phone] Care Team Providers Care Cutlet Maker Pork Name Role Phone Matt Gomes Primary Care Provider [phone] REASON FOR VISIT patient wants to talk [...] Gomes MD [address] [place], [place] [phone] 09/08/2024 Matt Gomes Left Achilles tendinitis M76.62 [...] Provider Name:Matt Flannery ier, 10/04/2025 02:00:00 PM, [address] [place] [address], [address], [place], [place], [phone], Provider Name:Matt Eileen Prudencio ier, 07/09/2026 07:00:00 AM, [address] [place] [address], Suite [facility], [place], [place], [phone], Provider Name:Matt Arellano Prudencio ier, 07/16/2026 02:30:00 PM, [address] [place] [address], Suite [facility], [place], [place], [phone], Progress Notes * MARILYEulalia GUZMÁN ADOB:[birth year] (64 yo F)Acc No.[id number]:09/08/2024 Progress Notes Patient: Eulalia Alonzo A Provider: Dino Gomes MD :1960 A ge:64 Y S ex:Female Date:09/08/2024 Address:[address] [place], [place] [phone] Subjective: * Chief Complaints: * P atient [...] true * Provider: Dino Gomes MD Date: 1 11/08/2023 Generated for Julito waters/Skylar/eTransmitting on: 0 07/17/2025 02:20 PM EDT History and Physical Notes * HPI [...]
--- OUTSIDE RECORDS SUMMARY | 2024-12-08 12:00 | XMS_ITS ---
Author Organization Matt Gomes MD Address [address] [place], [place] [phone] Care Team Providers Care Precinct Captain Name Role Phone Matt Gomes Primary Care [...] Date Provider Diagnosis Matt Gomes MD [address] [place], [place] [phone] 12/08/2024 Matt Gomes Plan Of Treatment Next Appt Details Provider Name:Matt gilmorer, 10/04/2025 02:00:00 PM, [address], [address], [place], [place], [phone], Provider Name:Matt Flannery ier, 07/09/2026 07:00:00 AM, [address], [address], [place], [place], [phone], Provider Name:Matt Flannery ier, 07/16/2026 02:30:00 PM, [address], [address], [place], [place], [phone], Progress Notes * Eulalia CALIXTO ADOB:[birth year] (64 yo F)Acc No.[id number]:12/08/2024 Progress Notes Patient: Eulalia TANG A Provider: Dino Gomes MD :1960 A ge:64 Y S ex:Female Date:12/08/2024 Address:[address] [place], [place] [phone] Subjective: * Chief Complaints: * 1 . [...] 0 12/08/2024 Generated for Julito waters/Skylar/Britney on: 0 07/17/2025 02:19 PM EDT
--- OUTSIDE RECORDS SUMMARY | 2025-04-30 08:18 | XMS_ITS ---
Author Organization Matt Gomes MD Address [address] [place] [phone] Care Team Providers Care Station Baggage Porter Name Role Phone Matt Gomes Primary Care Provider [phone] REASON FOR VISIT Quick question Encounters Encounter Location Date Provider Diagnosis Matt Gomes MD [address] [place] [phone] 04/30/2025 Matt Gomes Plan Of Treatment Next Appt Details Provider Name:Matt Flannery ier, 10/04/2025 02:00:00 PM, [address] [place] [address], [address] [place] [address], [phone], Provider Name:Matt sam, 07/09/2026 07:00:00 AM, [address] [place] [address], [place] [address], [place], [place], [phone], Provider Name:Matt sam, 07/16/2026 02:30:00 PM, [address] [place] [address], Suite [facility], [place], [place], [phone], Progress Notes * Eulalia CALIXTO ADOB:[birth year] (64 yo F)Acc No.[id number]:04/30/2025 Patient: Eulalia TANG :1960 A ge:64 Y S ex:Female Address:[address] [place] [address] * true * Date: Generated for Julito waters/Skylar/Brookssmitting on: 0 07/17/2025 02:20 PM EDT
--- OUTSIDE RECORDS SUMMARY | 2025-07-05 04:00 | XMS_ITS ---
Author Organization Matt Gomes MD Address [address] [place], [place] [phone] Care Team Providers Care Financial Analysis Consultant Name Role Phone Matt Gomes Primary Care Provider [phone] Results Component Value Reference Range Notes Complete Blood Count Auto Di ff Reviewed date:07/05/2025 12:21:51 PM Interpretation: Performing Lab:[facility], [address] [place] [phone] Notes/Report: White Blood Count 5.6 4.8-10.8 X10*3/uL [...] Panel Reviewed date:07/05/2025 12:18:54 PM Interpretation: Performing Lab:[address] [phone] Notes/Report: Triglycerides 66 <150 mg/dL Desirable Triglyceride: [...] T4 Reviewed date:07/05/2025 12:14:41 PM Interpretation: Performing Lab:[address] [phone] Notes/Report: TSH reflex Free T4 0.69 0.32-4.0 uIU/mL Hemoglobin A1c Reviewed date:07/05/2025 12:14:50 PM Interpretation: Performing Lab:[facility], [address] [place] [phone] Notes/Report: Hemoglobin A1c % 5.8 <6.0 % [...] average glucose, using the formula of the E0K-Ufwbisg Average Glucose study (ADAG), Diabetes Care, Vol.31,#8, May. 2007 UA ClnCatch+Micro w/rflx Cul t Reviewed date:07/05/2025 12:34:14 PM Interpretation: Performing Lab:[facility], [address] [place] [phone] Notes/Report: Urine, Clean Catch Color Urine Yellow Appearance Urine Clear PH 6.5 5.0-9.0 Glucose Urine UA Negative Negative mg/dL Urine Blood Negative Negative Specific [place] - Urine 1.020 1.005-1.025 Urine Protein Negative [...] Location Date Provider Diagnosis Matt Gomes MD [address] [place] [address] Drive [address] [place], [place] [phone] 07/05/2025 Matt Gomes Blood tests for routine [...] Pending Test Test Name Order Date Comprehensive [place]. Panel Fast Next Appt Details Provider Name:Matt Flannery ier, 10/04/2025 02:00:00 PM, [address] [place] [address], [address] [place] [address], [phone], Provider Name:Matt Flannery ier, 07/09/2026 07:00:00 AM, [address] [place] [address], [address], [phone], Provider Name:Matt Flannery ier, 07/16/2026 02:30:00 PM, [address] [place] [address], [address] [place] [address], [phone], Progress Notes * Eulalia CALIXTO ADOB:[birth year] (64 yo F)Acc No.[id number]:07/05/2025 Progress Note Patient: Eulalia TANG A Provider: Dino Gomes MD :1960 A ge:64 Y S ex:Female Date:07/05/2025 Address:[address] [place], [place] [phone] Subjective: * Chief Complaints: * 1 . [...] 2. L abile hypertension L AB: Comprehensive [place]. Panel Fast L AB: Complete Blood Count [...] 3. G raves disease L AB: Comprehensive [place]. Panel Fast L AB: Complete Blood Count [...] cholesterol with elevated triglycerides L AB: Comprehensive [place]. Panel Fast L AB: Complete Blood Count [...] E levated blood sugar L AB: Comprehensive [place]. Panel Fast L AB: Complete Blood Count [...] 0 07/05/2025 Generated for Julito waters/Skylar/Jaiitting on: 07/17/2025 02:19 PM EDT
--- OUTSIDE RECORDS SUMMARY | 2025-07-12 10:30 | XMS_ITS ---
Author Organization Matt Gomes MD Address [address] [place], [place] [phone] Care Team Providers Care Insole And Heel Stiffener Name Role Phone Matt Gomes Primary Care [...] Location Date Provider Diagnosis Matt Gomes MD [address] [place] [phone] 07/12/2025 Matt Gomes Annual physical exam Z00.00 [...] Details Provider Name:Matt sam, 10/04/2025 02:00:00 PM, [address] [place] [address], [address], [phone], Provider Name:Matt sam, 07/09/2026 07:00:00 AM, [address] [place] [address], [address], [phone], Provider Name:Matt sam, 07/16/2026 02:30:00 PM, [address] [place] [address], [address], [phone], Progress Notes * Eulalia CALIXTO ADOB:[birth year] (64 yo F)Acc No.[id number]:07/12/2025 Progress Notes Patient: Eulalia TANG Provider: Dino Gomes MD :1960 A ge:64 Y S ex:Female Date:07/12/2025 Address:[address] [place] [address], [place], [phone] Subjective: * Chief Complaints: * A NNUAL [...] mg/dL Urine Blood Negative Negative - Specific [place] - Urine 1.020 1.005-1.025 - Urine Protein [...] guaiac negative.? FEMALE GENITOURINARY: d one by discount clerk. EXTREMITIES: n o clubbing, cyanosis, or edema. [...] MD Date: 0 07/12/2025 Generated for Julito waters/Skylar/Jaiitting on: 0 07/17/2025 02:19 PM EDT History and Physical Notes * [...] exam intact SKIN: warm and dry, no msity picious lesions EXTREMITIES: no clubbing, cyanosi s, or edema BREASTS: No mass, no lump RECTAL EXAM: no masses palpable, stool guaiac negative FEMALE GENITOURINARY: done by discount clerk ORAL CAVITY: mucosa moist
--- NOTE | ~2025-07-17 | US_ITS ---
EXAMINATION: US THYROID CLINICAL INFORMATION: Nontoxic single thyroid nodule COMPARISON: June 20, 2024 TECHNIQUE: Linear transducer grayscale and color Doppler examination with attention to the region of the thyroid. FINDINGS: SIZE: Measurements of the thyroid lobes and nodules are given in sagittal, anteroposterior and transverse dimensions respectively. Right Thyroid Lobe: 5.1 x 2.1 x 1.8 cm, volume 10.2 mL. Previous: 5.0 x 1.5 x 1.8 cm, volume: 7.1 cc. Parenchyma: The gland echotexture is heterogeneous. Thyroid vascularity is increased. Left Thyroid Lobe: 5.4 x 1.8 x 1.5 cm, volume 8.0 mL. Previous: 4.1 x 1.4 x 1.6 cm, volume: 4.8 cc. Parenchyma: The gland echotexture is heterogeneous. Thyroid vascularity is increased. Isthmus: 0.4 cm in maximum AP dimension. Previous: 0.4 cm. Estimated total number of nodules greater than or equal to 1 cm: 1. 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 Location: Midportion left thyroid lobe. Size: 1.7 x 0.6 x 0.8 cm, volume 0.4 mL. Previous: 1.1 x 0.9 x 0.7 cm, volume: 0.4 cc. Nodule characteristics: Composition: Solid/almost completely solid (2). Echogenicity: Isoechoic (1). Shape: Not taller than wide (0). Margins: Ill-defined (0). Echogenic Foci: None (0). ACR TI-RADS total points: 3 ACR TI-RADS category: 3 NODES: No lymphadenopathy is seen in the tissue surrounding the thyroid gland. US/US thyroid IMPRESSION: ACR TI-RADS category: 3 ACR TI-RADS RECOMMENDATION REFERENCE: Ultrasound-guided fine-needle aspiration, followup ultrasound, no further follow up. * TR1 (0 point) and TR2 (2 points): No FNA or follow up. * TR3 (3 points): FNA if more than or equal to 2.5 cm in maximum dimension, followup ultrasound in 1, 3 and 5 years if 1.5 to 2.4 cm in maximum dimension. * TR4 (4-6 points): FNA if more than or equal to 1.5 cm in maximum dimension, followup ultrasound in 1, 2, 3 and 5 years if 1 to 1.4 cm in maximum dimension. * TR5 (more than or equal to 7 points): FNA if more than or equal to 1 cm in maximum dimension, followup ultrasound every year for 5 years if 0.5 to 0.9 cm in maximum dimension. * TR3, TR4 or TR5 nodules that are below the size threshold for followup receive no follow up. Electronically signed by: Santos Mclain MD 07/17/2025 02:05 PM EDT
--- OUTSIDE RECORDS SUMMARY | 2025-07-17 14:19 | XMS_ITS | Patient Health Record ---
Author Organization Matt Gomes MD Address [address] [place], [place] [address] Care Team Providers Care Intelligence Applications Name Role Phone Matt Gomes Primary Care [...] ff Reviewed date:07/05/2025 12:21:51 PM Interpretation: Performing Lab:[facility], [address] [place] [phone] Notes/Report: White Blood Count 5.6 4.8-10.8 X10*3/uL [...] 0.0-0.2 /100WBC Neutrophils Absolute Auto 3.3 2.0-8.3 x10*3/uL Imm Gran Abs Auto 0.02 0.00-0.03 X10*3/uL Lymphocytes Absolute Auto 1.5 1.2-4.9 X10*3/uL Monocytes Absolute Auto 0.5 0.1-1.2 X10*3/uL Eosinophils Absolute Auto 0.2 0.0-0.4 X10*3/uL Basophils Absolute Auto 0.0 0.0-0.2 X10*3/uL NRBC Abs Auto 0.000 0.0-0.012 X10*3/uL Lipid Panel Reviewed date:07/05/2025 12:18:54 PM Interpretation: Performing Lab:[facility], [address] [place] [phone] Notes/Report: Triglycerides 66 <150 mg/dL Desirable Triglyceride: [...] T4 Reviewed date:07/05/2025 12:14:41 PM Interpretation: Performing Lab:[address] [phone] Notes/Report: TSH reflex Free T4 0.69 0.32-4.0 uIU/mL Hemoglobin A1c Reviewed date:07/05/2025 12:14:50 PM Interpretation: Performing Lab:[facility], [address] [place] [phone] Notes/Report: Hemoglobin A1c % 5.8 <6.0 % [...] average glucose, using the formula of the Y9C-Rmcrnpe Average Glucose study (ADAG), Diabetes Care, Vol.31,#8, May. 2007 UA ClnCatch+Micro w/rflx Cul t Reviewed date:07/05/2025 12:34:14 PM Interpretation: Performing Lab:[address] [phone] Notes/Report: Urine, Clean Catch Color Urine Yellow Appearance Urine Clear PH 6.5 5.0-9.0 Glucose Urine UA Negative Negative mg/dL Urine Blood Negative Negative Specific [place] - Urine 1.020 1.005-1.025 Urine Protein Negative Neg-Trace mg/dL Urine Ketones Negative Negative mg/dL Nitrite Urine Negative Negative Leukocyte Esterase Urine Negative Negative RBC Urine 0-2 0-2 /HPF WBC Urine 0-5 0-5 /HPF Squamous Epithelial Cell Urine 0-2 0-2 /HPF Bacteria Urine None Seen None Seen Hyaline Casts Urine 0-2 0-2 /LPF Pap Smear Reviewed date:03/30/2025 12:56:45 PM Interpretation: Performing Lab:[facility], [address] [place] [address] Notes/Report: --- Name: Eulalia Brock Age/Sex: 64/F : 1960 Unit#: [id number] Attend Dr: Viral Thacker MD Re03/27/25 Status : DEP REF Location: [facility] Disch: --- SPEC : [id number] RECD : 03/28/25 STATUS: ELANA GILES NUM: [id number] EDWARD: 03/27/25-1358 [facility] DR: Viral Thacker MD ENTERED: 03/28/25 41 SP TYPE: Pap [facility] DR: Matt Gomes MD ORDERED: Pap Smear [...] and HPV testing will be performed at [facility] (CLIA #[id number]), [address] [place] [address]. Testing for H PV was performed using [...] detected. All professional services are performed by [facility] ([address] [place] [address]; P h: [phone]; CLIA #[id number]). The PAP Test is a screening procedure with the inherent possibility of both false negative and false positive results. Results should be interpreted in the context of historic and current clinical findings. Reliability of the PAP Test is enhanced by performing the test on a regular repetit patrick basis. CONTINUED ON NEXT PAGE --- Name: Eulalia Brock Age/Sex: 64/F : 1960 Unit#: [id number] Attend Dr: Viral Thacker MD Re03/27/25 Status : DEP REF Location: HO.LNP Disch: --- SPEC : [id number] RECD : 03/28/25 STATUS: ELANA GILES NUM: [id number] EDWARD: 03/27/25-1358 [facility] DR: Viral Thacker MD ENTERED: 03/28/25-08 41 SP TYPE: Pap Smr OTHR DR: Matt Gomes MD ORDERED: Pap Smear Copies To: Matt Gomes MD [facility] [address] [place] [address] [place] [address] Viral Thacker MD [facility] [address] [place] [address] --- Signed (signature on file) ALEJANDRO Álvarez (ASCP) 03/30/25 1041 --- END OF REPORT HPV High risk Reviewed date:04/02/2025 12:43:41 PM Interpretation: Performing Lab:[facility], [address] [place] [phone] Notes/Report: HPV High Risk Negative Negative HPV Genotype 16 Negative Negative HPV Genotype 18 Negative Negative HPV testing performed at [facility] (CLIA #[id number]), [address] [place] [address]. Testing for HPV was performed using the [...] date:04/27/2025 04:42:37 PM Interpretation: Performing Lab: Notes/Report: [facility] [address] [place] [address] Mammography Report Signed Patient: Eulalia Brock MR#: [id number] 889 : 1960 Acct:[id number] Age/Sex: 64 / F ADM Date: 04/27/25 Loc: GABEO Attending Dr: Viral Thacker MD Ordering Physician: Viral Thacker MD Results: Date of Service: 04/27/25 Follow Up: Procedure(s): XR DEXA axial skeleton Accession Number(s): [id number] cc: Matt Gomes MD; Viral Thacker MD EXAMINATION: DXA BONE DENSITY AXIAL HISTORY: Z78.0 - Asymptomatic menopausal state TECHNIQUE: [employer] Dual energy absorptiometry (DEXA) of the lumbar [...] is a trademark of the [employer]'s [place] for Metabolic Bone Disease, a World Health Organization (WHO) Collaborating Center. Electronically signed by: Dada Mcclellan MD 04/27/2025 12:58 PM EDT RP Dictated By: Dada Mcclellan MD Signed By: <Electronically signed by Dada Mcclellan MD in OV> 04/27/25 1258 DD/ 1115 TD/TT: 04/27/25 1145 Painting And Coating Worker: [place] [facility]'s [address] [place] [address] Mammography Report Signed Patient: Everett Brock MR#: [id number] 889 : 1960 Acct:[id number] Age/Sex: 64 / F ADM Date: 04/27/25 Loc: HO.MAMMO Attending Dr: Viral Thacker MD Ordering Physician: Viral Thacker MD Results: Date of Service: 04/27/25 Follow Up: Procedure(s): XR DEX A axial skeleton Accession Number(s): [id number] cc: Matt Gomes MD; Viral Thacker MD EXAMINATION: DXA BON E DENSITY AXIAL HISTORY: Z78.0 - Asymptomatic menopausal state TECHNIQUE: [employer] Dual energy absorptiometry (DEXA) of the lumbar [...] is a trademark of the [employer] [place] for Metabolic Bone Disease, a World Health Organization (WHO) Collaborating Center. Electronically arleen d by: Dada Mcclellan MD 04/27/2025 12:58 PM EDT RP Dictated By: Dada Mcclellan MD Signed By: <Electronically signed by Dada Mcclellan MD in OV> 04/27/25 1258 DD/ 1115 TD/TT: 04/27/25 1145 Painting And Coating Worker: Marianna Lanier. Panel Reviewed date:07/05/2025 12:17:06 PM Interpretation: Performing Lab:[facility], [address] [place] [phone] Notes/Report: Sodium 145 135-145 mmol/L Potassium 3.8 3.3-5.1 mmol/L Chloride 109 96-108 mmol/L Carbon Dioxide 31 22-29 mmol/L Anion Gap 9 12-20 Blood Urea Nitrogen 19 9-16 mg/dL Creatinine 0.92 0.5-1.4 mg/dL Estimated Glomerular Filt Rate > 60 Chronic Kidney Disease: Estimated GFR < 60 mL/min/1.73m2 Severe Kidney Disease: Estimated GFR < 15 mL/min/1.73m2 Glucose Random 92 60-115 mg/dL Calcium 9.5 8.4-10.2 mg/dL Bilirubin Total 0.8 0.0-1.0 mg/dL Aspartate Amino Transferase 25 5-31 U/L Alanine Aminotransferase 12 0-31 U/L Total Protein 6.9 6.5-8.0 g/dL Albumin Level 4.3 3.5-5.0 g/dL Alkaline Phosphatase 85 39-117 U/L Hold Gold Reviewed date:07/05/2025 12:14:32 PM Interpretation: Performing Lab:[facility], [address] [place] [phone] Notes/Report: Hold Gold See Note Specimen held untested for 24 hours; Call to request Chemistry testing. US thyroid (Not yet reviewed by provider) Interpretation: Performing Lab: Notes/Report: [address] [address] Ultrasound Report Signed Patient: Eulalia Brock MR#: [id number] 889 : 1960 Acct:[id number] Age/Sex: 64 / F ADM Date: 07/17/25 Loc: HO.US Attending Dr: Dada Simmons MD Ordering Physician: Dada Simmons MD Date of Service: 07/17/25 Procedure(s): US thyroid Accession Number(s): [id number] cc: Matt Gomes MD; Dada Simmons MD Reason for Exam: E04.1 - Nontoxic single thyroid nodule EXAMINATION: US THYROID CLINICAL INFORMATION: Nontoxic single thyroid nodule COMPARISON: June 20, 2024 TECHNIQUE: Linear transducer grayscale and color Doppler examination with attention to the region of the thyroid. FINDINGS: SIZE: Measurements of the thyroid lobes and nodules are given in sagittal, anteroposterior and transverse dimensions respectively. Right Thyroid Lobe: 5.1 x 2.1 x 1.8 cm, volume 10.2 mL. Previous: 5.0 x 1.5 x 1.8 cm, volume: 7.1 cc. Parenchyma: The gland echotexture is heterogeneous. Thyroid vascularity is increased. Left Thyroid Lobe: 5.4 x 1.8 x 1.5 cm, volume 8.0 mL. Previous: 4.1 x 1.4 x 1.6 cm, volume: 4.8 cc. Parenchyma: The gland echotexture is heterogeneous. Thyroid vascularity is increased. Isthmus: 0.4 cm in maximum AP dimension. Previous: 0.4 cm. Estimated total number of nodules greater than or equal to 1 cm: 1. [employer] nodules are described as follows: 1. Location: Midportion left thyroid lobe. Size: 1.7 x 0.6 x 0.8 cm, volume 0.4 mL. Previous: 1.1 x 0.9 x 0.7 cm, volume: 0.4 cc. Nodule characteristics: Composition: Solid/almost completely solid (2). Echogenicity: Isoechoic (1). Shape: Not taller than wide (0). Margins: Ill-defined (0). Echogenic Foci: None (0). ACR TI-RADS total points: 3 ACR TI-RADS category: 3 NODES: No lymphadenopathy is seen in the tissue surrounding the thyroid gland. US/US thyroid IMPRESSION: ACR TI-RADS category: 3 ACR TI-RADS RECOMMENDATION REFERENCE: Ultrasound-guided fine-needle aspiration, [...] receive no follow up. Electronically signed by: Santos Mclain MD 07/17/2025 02:05 PM EDT Dictated By: Santos Taylor MD Signed By: <Electronically signed by Santos Gary MD in OV> 07/17/25 1405 DD/ 1334 TD/TT: 07/17/25 1344 Painting And Coating Worker: [place] [id number] Ultrasound Report Signed Patient: Everett Brock MR#: [id number] 889 : 1960 Acct:[id number] Age/Sex: 64 / F ADM Date: 07/17/25 Loc: HO.US Attending Dr: Dada Simmons MD Ordering Physician: Dada Simmons MD Date of Service: 07/17/25 Procedure(s): US thyroid Accession Number(s): [id number] cc: Matt Gomes MD; Dada Simmons MD Reason for Exam: E04 .1 - Nontoxic single thyroid nodule EXAMINATION: US THYROID CLINICAL INFORMATION: Nontoxic single thyr oid nodule COMPARISON: June 20, 2024 TECHNIQUE: Linear transducer grayscale and color Doppler examination with attention to the reg ion of the thyroid. FINDINGS: SIZE: Measurements o f the thyroid lobes and nodules are given in sagittal, anteroposterior and transverse dimensions respectively. Right Thyroid Lobe: 5.1 x 2.1 x 1.8 cm, volume 10.2 mL. Previous: 5.0 x 1.5 x 1.8 cm, volume: 7.1 cc. Parenchyma: The glan d echotexture is heterogeneous. Thyroid vascularity is increased. Left Thyroid Lobe: 5 .4 x 1.8 x 1.5 cm, volume 8.0 mL. Previous: 4.1 x 1.4 x 1.6 cm, volume: 4.8 cc. Parenchyma: The glan d echotexture is heterogeneous. Thyroid vascularity is increased. Isthmus: 0.4 cm in maximum AP dimension. Previous: 0.4 cm. Estimated total numb er of nodules greater than or equal to 1 cm: 1. Con[employer] nodul es are described as follows: 1. Location: Midport ion left thyroid lobe. Size: 1.7 x 0.6 x 0. 8 cm, volume 0.4 mL. Previous: 1.1 x 0.9 x 0.7 cm, volume: 0.4 cc. Nodule characteristics: Composition: Solid/almost completely solid (2). Echogenicity: Isoech oic (1). Shape: Not taller th an wide (0). Margins: Ill-defined (0). Echogenic Foci: None (0). ACR TI-RADS total points: 3 ACR TI-RADS category: 3 NODES: No lymphadenopathy is seen in the tissue surrounding the thyroid gland. US/US thyroid IMPRESSION: ACR TI-RADS category: 3 ACR TI-RADS RECOMMENDATION REFERENCE: Ultrasound-guided fine-needle aspiration, [...] no follow up. Electronically arleen d by: Santos Mclain MD 07/17/2025 02:05 PM EDT Dictated By: Santos Cox MD Signed By: <Electronically signed by Santos Gary MD in OV> 07/17/25 1405 DD/ 1334 TD/TT: 07/17/25 1344 Painting And Coating Worker: Reason For Referral No Information Medications Medication [...] Fluarix Quadrivalent - 150 Unknown 07/03/2024 Refused Fluarix Quadrivalent - 150 Unknown 07/12/2025 Refused Tetanus Unknown 08/14/2013 Pending Social History [...] Problem Status W/U Status Risk Notes Problem 187740997 Lumbar disc disease (M51.9) Active confirmed Problem 133618164 Rosacea (L71.9) Active confirmed Problem 12762386 Labile hypertension (I10) Active confirmed Problem 750405306 Graves disease (E05.00) Active confirmed Problem 476616578 Elevated cholesterol with elevated triglycerides (E78.2) Active confirmed Problem 457673276 Menopause (Z78.0) Active confirmed Problem 133073311 Schatzki's ring (K22.2) Active confirmed Problem 47247143 Elevated blood sugar (R73.9) Active confirmed Problem 29856421 Sciatica of righ t side (M54.31) Active confirmed Problem 79123261 Blepharitis (H01.009) Active confirmed Problem 057239506 Hordeolum externum of right upper eyelid (H00.011) Active confirmed Problem 75077873 Bilateral carpal tunnel syndrome (G56.03) Active confirmed Problem 99798459 REEMA (obstructive sleep apnea) (G47.33) Active confirmed Problem Osteopenia (disorder) (088955344) Osteopenia determined by x-ray (M85.80) Active confirmed Vital Signs Blood pressure diastolic 90 mm Hg 07/12/2025 luis ght is down 11 pounds since 07-10-24 Height 61 in 07/12/2025 weight is down 11 pounds since 07-10-24 Blood pressure systolic 164 mm Hg 07/12/2025 luisg ht is down 11 pounds since 07-10-24 Weight 116 lbs 07/12/2025 weight is down 11 pounds since 07-10-24 BMI 21.92 kg/m2 07/12/2025 weight is down 11 pounds since 07-10-24 Encounters Encounter Location Date Provider Diagnosis Matt Gomes MD [address] [place] [id number] 07/05/2025 Matt Gomes Blood tests for routine general physical examination Z00.00 ; Labile hypertension I10 ; Graves disease E05.00 ; Elevated cholesterol with elevated triglycerides E78.2 and Elevated blood sugar R73.9 Matt Gomes MD [address] [id number] 09/08/2024 Matt Gomes Left Achilles tendinitis M76.62 and Labile hypertension I10 Matt Gomes MD [address] [place] [id number] 07/12/2025 Matt Gomes Annual physical exam Z00.00 and Borderline hypertension R03.0 Matt Gomes MD [address] [phone] 09/07/2024 Matt Gomes Achilles tendinitis of left lower extremity M76.62 Matt Gomes MD [address] [place] [address] [phone] 04/30/2025 Matt Gomes Assessments Encounter Date Diagnosis (ICD Code) Assessment Notes Treatment Notes Treatment Clinical Notes Section Notes 07/05/2025 Blood tests for routine general physical examination (ICD-10 - Z00.00) 09/08/2024 Left Achilles tendinitis (ICD-10 - M76.62) use nsaids as needed 07/12/2025 Annual physical exam (ICD-10 - Z00.00) 07/12/2025 Borderline hypertension (ICD-10 - R03.0) will check again in 3 months before 07/05/2025 Labile hypertension (ICD-10 - I10) 09/08/2024 Labile hypertension (ICD-10 - I10) elevated today, will cntinue to monitor and will contiue current regiment 09/07/2024 Achilles tendinitis of left lower extremity (ICD-10 - M76.62) 07/05/2025 Graves disease (ICD-10 - E05.00) 07/05/2025 Elevated cholesterol with elevated triglycerides (ICD-10 - E78.2) 07/05/2025 Elevated blood sugar (ICD-10 - R73.9) Plan Of Treatment Pending Test Test Name Order Date Electrocardiogram (EKG) 04/24/2016 XR GI SERIES 09/29/2022 Comprehensive [place]. Panel Fast US thyroid 07/17/2025 XR foot RT 2V 03/10/2021 Future Test Test Name Order Date BONE DENSITY DEXA 09/03/2021 Next Appt Details Provider Name:Mattgina Flannery ier, 10/04/2025 02:00:00 PM, [address] [place] [address], [address], [phone], Provider Name:Matt Eileen Prudencio ier, 07/09/2026 07:00:00 AM, [address] [place] [address], [address], [phone], Provider Name:Matt Flannery ier, 07/16/2026 02:30:00 PM, [address] [place] [address], [address], [phone], Insurance Providers Payer Name Payer Address Payer Phone Subscriber Number Group Number Insured Name Patient Relationship to Insured Coverage Start Date Coverage End Date [facility] MEDICARE ADVANTAGE PLAN [facility] [address] [place] [phone] [id number] Eulalia Brock Self - patient is the insured Medical (General) History Medical History History ICD Code 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 05/11/14, mammo refused 2020 still refusi ng 05/11/14 to schedule colonosc opy. is going to try again; colonoscopy done 10/01/17 w/Dr. Camarena - repeat 10 years IS ABLE TO TOLERATE MACROBID AND SYED is going jul 2017 Do yearly TSH for Graves Disease
--- OUTSIDE RECORDS SUMMARY | 2025-07-17 14:20 | XMS_ITS | Patient Health Record ---
Author Organization [facility] Address [address] [place] [address] Care Team Providers Care Scale Agent Name Role Phone Matt Gomes MD Primary Care Provider Dada Mendez [phone] Allergies Allergen (clinical drug ingredient) Drug/Non Drug Allergy documented on EMR Reaction Allergy Type Onset Date Status Levaquin Unknown Drug Allergy Active erythromycin Erythromycin Unknown Drug Allergy A ctive doxycycline Doxycycline Hyclate Unknown Drug Allergy Active cephalexin Cephalexin Unknown Drug Allergy Activ e tetracycline Tetracycline HCl Unknown Drug Allergy Active Sulfacet-R Unknown Drug Allergy Active penicillamine Penicillamine Unknown Drug Allergy Active Reason For Referral No Information Medications Medication SIG (Take, Route, Fr equency, Duration) Notes Start Date End Date Status Advil prn Active Loratadine prn Active Fish Oil PRN Active Excedrin Migraine prn Ac tive Multivitamin Active Calcium PRN Active Problems Problem Type SNOMED Code ICD Code Onset Dates Problem Status W/U Status Risk Notes Problem 418007750 Encounter for screening for malignant neoplasm of colon (Z12.11) Active confirmed Problem 54065407 Pharyngoesophage al dysphagia (R13.14) Active confirmed Plan Of Treatment Future Test Test Name Order Date COLONOSCOPY 10/26/2012 UPPER GI ENDOSCOPY 08/12/2017 COLONOSCOPY 08/12/2017 Insurance Providers Payer Name Payer Address Payer Phone Subscriber Number Group Number Insured Name Patient Relationship to Insured Coverage Start Date Coverage End Date [facility] [address] [place], [place] [phone] [id number] MARILYKAEL GUZMÁN Self - patient is the insured Medical (General) History Medical History History ICD Code Colonosocpy 12-11-2002-negative except in t/ext hemorrhoids Graves' Disease Premature heartbeat--of no clinical sign ificance-on no Rx for it Denies [place],DM,CVA,Lung disease,renal dise ase 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
--- OUTSIDE RECORDS SUMMARY | 2025-07-17 14:20 | XMS_ITS | Patient Health Record ---
Author Organization [facility] Ashu Kellogg Address [address] [place] [address] Care Team Providers Care Hogshead Opener Name Role Phone Mireya AKERS, Matt Primary Care Provider Chance Thompson Unavailable [phone] Allergies Allergen (clinical drug ingredient) Drug/Non Drug [...] Calcium 1 tab Oral Active vitamin Active [place] 3 1000 MG 1 capsule Orally Onc [...] Status W/U Status Risk Notes Problem Onychomycosis (438693809) Onychomycosis (110.1) Active confirmed Just starting Topical tx NOW Problem Pain in limb (42833957) Pain in Limb (729.5) Active confirmed Plan Of Treatment Pending Test Test Name Order Date [id number]-NWRROJI NAIL, 1-5 06/04/2014 36830-FXPDFJI NAIL, 1-5 09/03/2014 Insurance Providers Payer Name Payer Address Payer Phone Subscriber Number Group Number Insured Name Patient Relationship to Insured Coverage Start Date Coverage End Date [facility] [address] [place] [address] [id number] Spouse - patient is the spouse of the insured Medical (General) History Medical History History ICD Code Anemia Back,Hip,and Knee pain Migraines Eczema Thyroid disorder Chicken pox Measles Mumps Transfusions Surgical History Surgery Date(Month/Year) appendectomy D&C
== END 2025-07-17 13:09 | disposition home or self-care (01) ==
LOC: HO.US 13:08
PROVIDERS: PCP Internal Medicine; Visit Provider Internal Medicine Endocrinology, Diabetes & Metabolism
DX: E04.1 Nontoxic single thyroid nodule (principal)
CPT/HCPCS: 76536

== ENCOUNTER → 2025-07-17 13:09 | Outpatient (BNV) | payer MEDICARE, SELFPAY | PROVIDERS: PCP Internal Medicine; Visit Provider Radiology Diagnostic Radiology | DX: E04.1 Nontoxic single thyroid nodule (principal) | CPT/HCPCS: 76536 ==

== ENCOUNTER 2025-09-19 09:19 | Outpatient (REF) | payer MEDICARE, SELFPAY ==
[2025-09-19 11:19] LABS: Free T4 (Free Thyroxine) 0.85 ng/dL (0.71-1.85); Thyroid Stimulating Hormone 1.11 uIU/mL (0.32-4.0)
== END 2025-09-19 09:20 | disposition home or self-care (01) ==
LOC: HO.10HDL 09:19
PROVIDERS: Visit Provider Internal Medicine Endocrinology, Diabetes & Metabolism
DX: E05.90 Thyrotoxicosis, unspecified without thyrotoxic crisis or storm (principal)
CPT/HCPCS: 36415; 84439; 84443; 84445; 84481

== ENCOUNTER 2025-09-26 14:13 | Outpatient (AMB) | payer MEDICARE, SELFPAY ==
--- OUTSIDE RECORDS SUMMARY | 2024-07-03 02:30 | XMS_ITS ---
Author Organization Matt Gomes MD Address [address] [place], [place] [id number] Care Team Providers Care Shirt Folder Name Role Phone Matt Gomes Primary Care Provider Results Component Value Reference Range Notes Complete Blood Count Auto Di ff Reviewed date:07/03/2024 05:04:43 PM Interpretation: Performing Lab:[facility], [address] [place] [phone] Notes/Report: White Blood Count 5.9 4.8-10.8 X10*3/uL Red Blood Count 5.07 4.20-5.50 X10*6/uL Hemoglobin 15.4 12.0-16.0 g/dl Hematocrit 45.5 37.0-47.0 % Mean Corpuscular Volume 89.7 80.0-98.0 fL Mean Corpuscular Hemoglobin 30.4 27.0-33.0 pg Mean Corpuscular HGB Conc 33.8 31.0-35.0 g/dl Red Cell Distribution Width 12.9 11.0-16.0 % Platelet Count 236 160-400 X10*3/uL Mean Platelet Volume 10.0 9.4-12.3 fL Neutrophils Percent Auto 62.7 45-73 % Imm Gran Pct Auto 0.2 0.0-0.4 % Lymphocytes Percent Auto 24.4 20-40 % Monocytes Percent Auto 8.8 2-11 % Eosinophils Percent Auto 2.9 0-4 % Basophils Percent Auto 1.0 0-2 % NRBC Pct Auto 0.0 0.0-0.2 /100WBC Neutrophils Absolute Auto 3.7 2.0-8.3 x10*3/u L Imm Gran Abs Auto 0.01 0.00-0.03 X10*3/uL Lymphocytes Absolute Auto 1.4 1.2-4.9 X10*3/u L Monocytes Absolute Auto 0.5 0.1-1.2 X10*3/uL Eosinophils Absolute Auto 0.2 0.0-0.4 X10*3/u L Basophils Absolute Auto 0.1 0.0-0.2 X10*3/uL NRBC Abs Auto 0.000 0.0-0.012 X10*3/uL Comprehensive [place]. Panel Fa st Reviewed date:07/03/2024 12:53:26 PM Interpretation: Performing Lab:[facility], [address] [place] [phone] Notes/Report: Sodium 142 135-145 mmol/L Potassium 4.0 3.3-5.1 mmol/L Chloride 107 96-108 mmol/L Carbon Dioxide 28 22-29 mmol/L Anion Gap 11 12-20 Blood Urea Nitrogen 14 9-16 mg/dL Creatinine 0.97 0.5-1.4 mg/dL Estimated Glomerular Filt Rate 58 NOTE: For -Banglades[place] individuals, multiply the result by 1.210. Chronic Kidney Disease: Estimated GFR < 60 mL/min/1.73m2 Severe Kidney Disease: Estimated GFR < 15 mL/min/1.73m2 Glucose Fasting 96 60-99 mg/dL Calcium 9.9 8.4-10.2 mg/dL Bilirubin Total 0.8 0.0-1.0 mg/dL Aspartate Amino Transferase 19 5-31 U/L Alanine Aminotransferase 13 0-31 U/L Total Protein 7.2 6.5-8.0 g/dL Albumin Level 4.2 3.5-5.0 g/dL Alkaline Phosphatase 93 39-117 U/L Lipid Panel Reviewed date:07/03/2024 12:44:09 PM Interpretation: Performing Lab:[facility], [address] [place] [phone] Notes/Report: Triglycerides 119 <150 mg/dL Desirable Triglyceride: less than 150 mg/dL Borderline High Triglyceride 150-199 mg/dL High Triglyceride: 200-499 mg/dL Very High Triglyceride: greater than or equal to 5OO mg/dL Cholesterol 241 <200 mg/dL Desirable Cholesterol: less than 200 mg/dL Borderline High Cholesterol: 200-239 mg/dL High Cholesterol: greater than 239 mg/dL LDL Cholesterol Calculated 141 <100 mg/dL Desirable LDL: less than 100 mg/dL Near Optimal/Above Optimal LDL: 110-129 mg/dL Borderline High LDL: 130-159 mg/dL High LDL: 160-189 mg/dL Very High LDL: greater than or equal to 190 mg/dL HDL Cholesterol 77 >40 mg/dL Desirable HDL: greater than 40 mg/dL Note: This HDL assay may give artificially low results in patients with liver disease. UA ClnCatch+Micro w/rflx Cul t Reviewed date:07/03/2024 05:04:26 PM Interpretation: Performing Lab:[facility], [address] [place] [phone] Notes/Report: Urine, Clean Catch Color Urine Yellow Appearance Urine Cloudy PH 7.5 5.0-9.0 Glucose Urine UA Negative Negative mg/dL Urine Blood Negative Negative Specific [place] - Urine 1.015 1.005-1.025 Urine Protein Negative Neg-Trace mg/dL Urine Ketones Negative Negative mg/dL Nitrite Urine Negative Negative Leukocyte Esterase Urine Negative Negative RBC Urine 0-2 0-2 /HPF WBC Urine 0-5 0-5 /HPF Squamous Epithelial Cell Urine 0-2 0-2 /HPF Bacteria Urine None Seen None Seen Hyaline Casts Urine 0-2 0-2 /LPF REASON FOR VISIT yearly fasting labs Immunizations Vaccine Route Administration Date Status Comme nts Fluarix Quadrivalent - 150 Unknown 07/03/2024 Refused Encounters Encounter Location Date Provider Diagnosis Matt Gomes MD [address] [place], [place] [id number] 07/03/2024 Matt Gomes Blood tests for routine general physical examination Z00.00 ; Labile hypertension I10 ; Graves disease E05.00 and Elevated cholesterol with elevated triglycerides E78.2 Assessments Encounter Date Diagnosis (ICD Code) Assessment Notes Treatment Notes Treatment Clinical Notes Section Notes 07/03/2024 Blood tests for routine general physical examination (ICD-10 - Z00.00) 07/03/2024 Labile hypertension (ICD-10 - I10) 07/03/2024 Graves disease (ICD-10 - E05.00) 07/03/2024 Elevated cholesterol with elevated triglycerides (ICD-10 - E78.2) Plan Of Treatment Next Appt Details Provider Name:Matt Eileen Prudencio sam, 10/04/2025 02:00:00 PM, [address] [place] [address], [address] [place] [address], [phone], Provider Name:Matt Eileen Prudencio sam, 07/09/2026 07:00:00 AM, [address] [place] [address], [address] [place] [address], [phone], Provider Name:Matt Eileen Prudencio sam, 07/16/2026 02:30:00 PM, [address] [place] [address], [address] [place] [address], [phone], Progress Notes * Eulalia CALIXTO ADOB:[birth year] (65 yo F)Acc No.[id number]:07/03/2024 Progress Note Patient: Eulalia TANG Provider: Dino Gomes MD :1960 A ge:63 Y S ex:Female Date:07/03/2024 Address:[address] [place], [place] [phone] Subjective: * Chief Complaints: * 1 . Yearly fasting labs. * Medical History: Objective: * Vitals: Assessment: * Assessment: 1. B lood tests for routine general physical examination - Z00.00 (Primary) 2 .?Labile hypertension - I10 3 . G raves disease - E05.00 4 .?Elevated cholesterol with elevated triglycerides - E78.2 Plan: * Treatment: 2. L abile hypertension L AB: Complete Blood Count Auto Diff (Collection Date & Time - 07/03/2024 07:30 AM) L AB: Comprehensive [place]. Panel Fast (Collection Date & Time - 07/03/2024 07:30 AM) L AB: UA ClnCatch+Micro w/rflx Cult (Collection Date & Time - 07/03/2024 07:30 AM) 3. G raves disease L AB: Complete Blood Count Auto Diff (Collection Date & Time - 07/03/2024 07:30 AM) L AB: Comprehensive [place]. Panel Fast (Collection Date & Time - 07/03/2024 07:30 AM) L AB: UA ClnCatch+Micro w/rflx Cult (Collection Date & Time - 07/03/2024 07:30 AM) 4. E levated cholesterol with elevated triglycerides L AB: Complete Blood Count Auto Diff (Collection Date & Time - 07/03/2024 07:30 AM) L AB: Comprehensive [place]. Panel Fast (Collection Date & Time - 07/03/2024 07:30 AM) L AB: Lipid Panel (Collection Date & Time - 07/03/2024 07:30 AM) L AB: UA ClnCatch+Micro w/rflx Cult (Collection Date & Time - 07/03/2024 07:30 AM) * Immunizations: Fluarix Quadrivalent - 150 (Not administered - Refused: Patient decision) * Procedure Codes: 3 6415 VENIPUNCT, ROUTINE* * * The named appointment provid er may or may not be the originator of this progress note, and it is not deemed complete until electronically signed by the appointment provider. Sign off status: Pending * Provider: Dino Gomes MD Date: 0 07/03/2024 Generated for Julito waters/Skylar/Jaiitting on: 1 11/27/2024 10:12 PM EST
--- OUTSIDE RECORDS SUMMARY | 2024-09-08 05:00 | XMS_ITS ---
Author Organization Matt Gomes MD Address [address] [place], [place] [phone] Care Team Providers Care Painter Airbrush Name Role Phone Matt Gomes Primary Care Provider REASON FOR VISIT patient wants to talk to provider before having venogram done, Left foot issue Medications Medication SIG (Take, Route, Fr equency, Duration) Notes Start Date End Date Status methIMAzole 5 MG 31tablet Orally Once a day Active Vital Signs Blood pressure systolic 150 mm Hg 09/08/20 24 Blood pressure diastolic 90 mm Hg 024 Height 61 in 09/08/2024 Encounters Encounter Location Date Provider Diagnosis Matt Gomes MD [address] [place], [place] [phone] 09/08/2024 Matt Gomes Left Achilles tendinitis M76.62 and Labile hypertension I10 Assessments Encounter Date Diagnosis (ICD Code) Assessment Notes Treatment Notes Treatment Clinical Notes Section Notes 09/08/2024 Left Achilles tendinitis (ICD-10 - M76.62) use nsaids as needed 09/08/2024 Labile hypertension (ICD-10 - I10) elevated today, will cntinue to monitor and will contiue current regiment Plan Of Treatment Treatment Notes Assessment Notes Left Achilles tendinitis use nsaids as n eeded Labile hypertension elevated today, will cntinue to monitor and will contiue current regiment Next Appt Details Follow Up: 3 Months, Reason: Provider Name:Matt Flannery ier, 10/04/2025 02:00:00 PM, [address] [place] [address], [address], [place], [place], [phone], Provider Name:Matt Eileen Prudencio ier, 07/09/2026 07:00:00 AM, [address] [place] [address], Suite [facility], [place], [place], [phone], Provider Name:Matt Arellano Prudencio ier, 07/16/2026 02:30:00 PM, [address] [place] [address], Suite [facility], [place], [place], [phone], Progress Notes * MARILYEulalia GUZMÁN ADOB:[birth year] (64 yo F)Acc No.[id number]:09/08/2024 Progress Notes Patient: Eulalia Alonzo A Provider: Dino Gomes MD :1960 A ge:64 Y S ex:Female Date:09/08/2024 Address:[address] [place], [place] [phone] Subjective: * Chief Complaints: * P atient wants to talk to provider before having venogram doneLeft foot issue * HPI: S ymptom(s): patient is a 64 yo female here with complaint of one week ago got pain in left calf and then it moved down her leg to the achilles. just annoying. moving quickly got more pain in achilles. took 2 advil anvil and it went away. 2 nights ago the entire area was aching. * ROS: G eneral/Constitutional: Patient denies c hills, fatigue, fever, headache. ? E NT: Patient denies d ecreased sense of smell, any loss of taste, sore throat. M usculoskeletal: Patient denies m uscle aches. P eripheral Vascular: Patient denies r ed and blue toes. h aving brittaney minimal pain. * Medical History: * Surgical History: * Hospitalization/Major Diagno stic Procedure: * Medications: T akingmethIMAzole 5 MG Tablet 31tablet Orally Once a dayTaking methIMAzole 5 MG Tablet 31tablet Orally Once a day Objective: * Vitals: H t: 61, BP:150/90. * Examination: G eneral Examination: GENERAL APPEARANCE: i n no acute distress. EXTREMITIES: m inimal tenderness over achilles. ? Assessment: * Assessment: 1. L eft Achilles tendinitis - M76.62 (Primary) 2 . L abile hypertension - I10 Plan: * Treatment: 2. L abile hypertension Notes: elevated today, will cntinue to monitor and will contiue current regiment * Procedure Codes: * Follow Up: 3 Months * * Sign off status: Completed true * Provider: Dino Gomes MD Date: 11/08/2023 Generated for Julito waters/Skylar/Brookssmitting on: 11/27/2024 10:13 PM EST History and Physical Notes * HPI (History of Present Illness) Category Sub-Category Detail Notes Category Not es Symptom(s) patient is a 64 yo female here with complaint of one week ago got pain in left calf and then it moved down her leg to the achilles. just annoying. moving quickly got more pain in achilles. took 2 advil anvil and it went away. 2 nights ago the entire area was aching. Examination Category Sub-Category Detail Notes Category Not es General Examination GENERAL APPEARANCE: in no acute di stress EXTREMITIES: minimal tenderness o adeel achilles
--- OUTSIDE RECORDS SUMMARY | 2024-12-08 11:00 | XMS_ITS ---
Author Organization Matt Gomes MD Address [address] [place], [place] [phone] Care Team Providers Care Windows Security Engineer Name Role Phone Matt Gomes Primary Care [...] patrick tetracycline tetracycline (uncoded) itchy Allergy Active REASON FOR VISIT 3 MO F/U Encounters Encounter Location Date Provider Diagnosis Matt Gomes MD [address] [place], [place] [phone] 12/08/2024 Matt Gomes Plan Of Treatment Next Appt Details Provider Name:Matt gilmorer, 10/04/2025 02:00:00 PM, [address], [address], [place], [place], [phone], Provider Name:Matt Flannery ier, 07/09/2026 07:00:00 AM, [address], [address], [place], [place], [phone], Provider Name:Matt Flannery ier, 07/16/2026 02:30:00 PM, [address], [address], [place], [place], [phone], Progress Notes * Eulalia CALIXTO ADOB:[birth year] (65 yo F)Acc No.[id number]:12/08/2024 Progress Notes Patient: Eulalia TANG Provider: Dino Gomes MD :1960 A ge:64 Y S ex:Female Date:12/08/2024 Address:[address] [place] [address], [facility] Subjective: * Chief Complaints: * 1 . 3 MO F/U. * ROS: G eneral/Constitutional: Denies C hills. D enies F atigue. D enies F ever. D enies H eadache. R espiratory: Denies C ough. D enies S hortness of breath at rest. G astrointestinal: Denies D iarrhea. D enies N ausea. * Medical History: DR AMADA DEAL no pap 05/11/14: 09/23/2021 PAp done awaiting path., 05/11/14, mammo refused 2020 still refusing, 05/11/14 to schedule colonoscopy. is going to try again; colonoscopy done 10/01/17 w/Dr. Camarena - repeat 10 years, IS ABLE TO TOLERATE MACROBID AND CIPRO, Is going jul 2017, Do yearly TSH for Graves Disease. * Allergies: b actrim: rash, penicillin: hives, levaquin: itchy, erythromycin: itchy, tetracycline: itchy, keflex: itchy, Doxycycline: itchy. Objective: * Vitals: Assessment: Plan: * Treatment: * * The named appointment provid er may or may not be the originator of this progress note, and it is not deemed complete until electronically signed by the appointment provider. Sign off status: Pending * Provider: Dino Gomes MD Date: 0 12/08/2024 Generated for Julito waters/Skylar/Britney on: 1 11/27/2024 10:12 PM EST
--- OUTSIDE RECORDS SUMMARY | 2025-04-30 07:18 | XMS_ITS ---
Author Organization Matt Gomes MD Address [address] [place] [phone] Care Team Providers Care Highway Commissioner Name Role Phone Matt Gomes Primary Care Provider REASON FOR VISIT Quick question Encounters Encounter Location Date Provider Diagnosis Matt Gomes MD [address] [place] [phone] 04/30/2025 Matt Gomes Plan Of Treatment Next Appt Details Provider Name:Matt Flannery ier, 10/04/2025 02:00:00 PM, [address] [place] [address], [address] [place] [address], [phone], Provider Name:Matt sam, 07/09/2026 07:00:00 AM, [address] [place] [address], [place] [address], [place], [place], [phone], Provider Name:Matt sam, 07/16/2026 02:30:00 PM, [address] [place] [address], Suite [facility], [place], [place], [phone], Progress Notes * Eulalia CALIXTO ADOB:[birth year] (64 yo F)Acc No.[id number]:04/30/2025 Patient: Eulalia TANG :1960 A ge:64 Y S ex:Female Address:[address] [place] [address] * true * Date: Generated for Julito waters/Skylar/Brookssmitting on: 11/27/2024 10:13 PM EST
--- OUTSIDE RECORDS SUMMARY | 2025-07-05 03:00 | XMS_ITS ---
Author Organization Matt Gomes MD Address [address] [place], [place] [phone] Care Team Providers Care Inspector Plumbing Name Role Phone Matt Gomes Primary Care Provider [phone] Results Component Value Reference Range Notes Complete Blood Count Auto Di ff Reviewed date:07/05/2025 12:21:51 PM Interpretation: Performing Lab:[facility], [address] [place] [phone] Notes/Report: White Blood Count 5.6 4.8-10.8 X10*3/uL Red Blood Count 4.98 4.20-5.50 X10*6/uL Hemoglobin 15.0 12.0-16.0 g/dl Hematocrit 44.6 37.0-47.0 % Mean Corpuscular Volume 89.6 80.0-98.0 fL Mean Corpuscular Hemoglobin 30.1 27.0-33.0 pg Mean Corpuscular HGB Conc 33.6 31.0-35.0 g/dl Red Cell Distribution Width 13.4 11.0-16.0 % Platelet Count 226 160-400 X10*3/uL Mean Platelet Volume 10.1 9.4-12.3 fL Neutrophils Percent Auto 59.4 45-73 % Imm Gran Pct Auto 0.4 0.0-0.4 % Lymphocytes Percent Auto 26.6 20-40 % Monocytes Percent Auto 9.3 2-11 % Eosinophils Percent Auto 3.6 0-4 % Basophils Percent Auto 0.7 0-2 % NRBC Pct Auto 0.0 0.0-0.2 /100WBC Neutrophils Absolute Auto 3.3 2.0-8.3 x10*3/u L Imm Gran Abs Auto 0.02 0.00-0.03 X10*3/uL Lymphocytes Absolute Auto 1.5 1.2-4.9 X10*3/u L Monocytes Absolute Auto 0.5 0.1-1.2 X10*3/uL Eosinophils Absolute Auto 0.2 0.0-0.4 X10*3/u L Basophils Absolute Auto 0.0 0.0-0.2 X10*3/uL NRBC Abs Auto 0.000 0.0-0.012 X10*3/uL Lipid Panel Reviewed date:07/05/2025 12:18:54 PM Interpretation: Performing Lab:[address] [phone] Notes/Report: Triglycerides 66 <150 mg/dL Desirable Triglyceride: less than 150 mg/dL Borderline High Triglyceride 150-199 mg/dL High Triglyceride: 200-499 mg/dL Very High Triglyceride: greater than or equal to 5OO mg/dL Cholesterol 224 <200 mg/dL Desirable Cholesterol: less than 200 mg/dL Borderline High Cholesterol: 200-239 mg/dL High Cholesterol: greater than 239 mg/dL LDL Cholesterol Calculated 132 <100 mg/dL Desirable LDL: less than 100 mg/dL Near Optimal/Above Optimal LDL: 110-129 mg/dL Borderline High LDL: 130-159 mg/dL High LDL: 160-189 mg/dL Very High LDL: greater than or equal to 190 mg/dL HDL Cholesterol 79 >40 mg/dL Desirable HDL: greater than 40 mg/dL Note: This HDL assay may give artificially low results in patients with liver disease. TSH reflex Free T4 Reviewed date:07/05/2025 12:14:41 PM Interpretation: Performing Lab:[address] [phone] Notes/Report: TSH reflex Free T4 0.69 0.32-4.0 uIU/mL Hemoglobin A1c Reviewed date:07/05/2025 12:14:50 PM Interpretation: Performing Lab:[facility], [address] [place] [phone] Notes/Report: Hemoglobin A1c % 5.8 <6.0 % Hemoglobin A1C Reference Range Adults: 4.8 - 6.0 % Non diabetic: < 6.0 % Goal: < 7.0 % Additional Action Suggested: > 8.0 % Note: Hemoglobin A1c results are invalid for patients with abnormal amounts of HbF. Blood transfusions may impact the HbA1c concentration in the patient sample. Estimated Average Glucose 120 eAG = Estimated average glucose which is %A1C expressed as average glucose, using the formula of the M9E-Digzfwi Average Glucose study (ADAG), Diabetes Care, Vol.31,#8, May. 2007 UA ClnCatch+Micro w/rflx Cul t Reviewed date:07/05/2025 12:34:14 PM Interpretation: Performing Lab:[facility], [address] [place] [phone] Notes/Report: Urine, Clean Catch Color Urine Yellow Appearance Urine Clear PH 6.5 5.0-9.0 Glucose Urine UA Negative Negative mg/dL Urine Blood Negative Negative Specific [place] - Urine 1.020 1.005-1.025 Urine Protein Negative Neg-Trace mg/dL Urine Ketones Negative Negative mg/dL Nitrite Urine Negative Negative Leukocyte Esterase Urine Negative Negative RBC Urine 0-2 0-2 /HPF WBC Urine 0-5 0-5 /HPF Squamous Epithelial Cell Urine 0-2 0-2 /HPF Bacteria Urine None Seen None Seen Hyaline Casts Urine 0-2 0-2 /LPF REASON FOR VISIT FASTING LABS Encounters Encounter Location Date Provider Diagnosis Matt Gomes MD [address] [place] [address] Drive [address] [place], [place] [phone] 07/05/2025 Matt Gomes Blood tests for routine general physical examination Z00.00 ; Labile hypertension I10 ; Graves disease E05.00 ; Elevated cholesterol with elevated triglycerides E78.2 and Elevated blood sugar R73.9 Assessments Encounter Date Diagnosis (ICD Code) Assessment Notes Treatment Notes Treatment Clinical Notes Section Notes 07/05/2025 Blood tests for routine general physical examination (ICD-10 - Z00.00) 07/05/2025 Labile hypertension (ICD-10 - I10) 07/05/2025 Graves disease (ICD-10 - E05.00) 07/05/2025 Elevated cholesterol with elevated triglycerides (ICD-10 - E78.2) 07/05/2025 Elevated blood sugar (ICD-10 - R73.9) Plan Of Treatment Pending Test Test Name Order Date Comprehensive [place]. Panel Fast Next Appt Details Provider Name:Matt Flannery ier, 10/04/2025 02:00:00 PM, [address] [place] [address], [address] [place] [address], [phone], Provider Name:Matt Flannery ier, 07/09/2026 07:00:00 AM, [address] [place] [address], [address], [phone], Provider Name:Matt Flannery ier, 07/16/2026 02:30:00 PM, [address] [place] [address], [address] [place] [address], [phone], Progress Notes * Eulalia CALIXTO ADOB:[birth year] (65 yo F)Acc No.[id number]:07/05/2025 Progress Note Patient: Eulalia TANG A Provider: Dino Gomes MD :1960 A ge:64 Y S ex:Female Date:07/05/2025 Address:[address] [place], [place] [phone] Subjective: * Chief Complaints: * 1 . FASTING LABS. * Medical History: Objective: * Vitals: Assessment: * Assessment: 1. B lood tests for routine general physical examination - Z00.00 (Primary) 2 .?Labile hypertension - I10 3 . G raves disease - E05.00 4 .?Elevated cholesterol with elevated triglycerides - E78.2 5 . E levated blood sugar - R73.9 Plan: * Treatment: 2. L abile hypertension L AB: Comprehensive [place]. Panel Fast L AB: Complete Blood Count Auto Diff (Collection Date & Time - 07/05/2025 08:00 AM) L AB: Lipid Panel (Collection Date & Time - 07/05/2025 08:00 AM) L AB: TSH reflex Free T4 (Collection Date & Time - 07/05/2025 08:00 AM) L AB: Hemoglobin A1c (Collection Date & Time - 07/05/2025 08:00 AM) L AB: UA ClnCatch+Micro w/rflx Cult (Collection Date & Time - 07/05/2025 08:00 AM) 3. G raves disease L AB: Comprehensive [place]. Panel Fast L AB: Complete Blood Count Auto Diff (Collection Date & Time - 07/05/2025 08:00 AM) L AB: Lipid Panel (Collection Date & Time - 07/05/2025 08:00 AM) L AB: TSH reflex Free T4 (Collection Date & Time - 07/05/2025 08:00 AM) L AB: Hemoglobin A1c (Collection Date & Time - 07/05/2025 08:00 AM) L AB: UA ClnCatch+Micro w/rflx Cult (Collection Date & Time - 07/05/2025 08:00 AM) 4. E levated cholesterol with elevated triglycerides L AB: Comprehensive [place]. Panel Fast L AB: Complete Blood Count Auto Diff (Collection Date & Time - 07/05/2025 08:00 AM) L AB: Lipid Panel (Collection Date & Time - 07/05/2025 08:00 AM) L AB: TSH reflex Free T4 (Collection Date & Time - 07/05/2025 08:00 AM) L AB: Hemoglobin A1c (Collection Date & Time - 07/05/2025 08:00 AM) L AB: UA ClnCatch+Micro w/rflx Cult (Collection Date & Time - 07/05/2025 08:00 AM) 5. E levated blood sugar L AB: Comprehensive [place]. Panel Fast L AB: Complete Blood Count Auto Diff (Collection Date & Time - 07/05/2025 08:00 AM) L AB: Lipid Panel (Collection Date & Time - 07/05/2025 08:00 AM) L AB: TSH reflex Free T4 (Collection Date & Time - 07/05/2025 08:00 AM) L AB: Hemoglobin A1c (Collection Date & Time - 07/05/2025 08:00 AM) L AB: UA ClnCatch+Micro w/rflx Cult (Collection Date & Time - 07/05/2025 08:00 AM) * Procedure Codes: 3 6415 VENIPUNCT, ROUTINE* * * The named appointment provid er may or may not be the originator of this progress note, and it is not deemed complete until electronically signed by the appointment provider. Sign off status: Pending * Provider: Dino Gomes MD Date: 0 07/05/2025 Generated for Julito waters/Skylar/Jaiitting on: 1 11/27/2024 10:10 PM EST
--- OUTSIDE RECORDS SUMMARY | 2025-07-12 09:30 | XMS_ITS ---
Author Organization Matt Gomes MD Address [address] [place], [place] [phone] Care Team Providers Care Us Marketing Director Name Role Phone Matt Gomes Primary Care Provider [phone] Allergies Allergen (clinical drug ingredient) Drug/Non Drug [...] (uncoded) itchy Allergy Active REASON FOR VISIT ANNUAL EXAM Medications Medication SIG (Take, Route, Fr equency, Duration) Notes Start Date End Date Status methIMAzole 10 MG 1 tab Orally Once a day Active Immunizations Vaccine Route Administration Date Status Comme nts Fluarix Quadrivalent - 150 Unknown 07/12/2025 Refused Social History Tobacco Use: Social History Observation [...] No Points 0 Interpretation Negative Vital Signs Blood pressure systolic 164 mm Hg 07/12/20 Blood pressure diastolic 90 mm Hg 025 Height 61 in 07/12/2025 Weight 116 lbs 07/12/2025 BMI 21.92 kg/m2 07/12/2025 weight is down 11 pounds sin 07-10-24 Encounters Encounter Location Date Provider Diagnosis Matt Gomes MD [address] [place] [phone] 07/12/2025 Matt Gomes Annual physical exam Z00.00 and Borderline hypertension R03.0 Assessments Encounter Date Diagnosis (ICD Code) Assessment Notes Treatment Notes Treatment Clinical Notes Section Notes 07/12/2025 Annual physical exam (ICD-10 - Z00.00) 07/12/2025 Borderline hypertension (ICD-10 - R03.0) will check again in 3 months before Plan Of Treatment Treatment Notes Assessment Notes Borderline hypertension will check again in 3 months before Next Appt Details Provider Name:Matt sam, 10/04/2025 02:00:00 PM, [address] [place] [address], [address], [phone], Provider Name:Matt sam, 07/09/2026 07:00:00 AM, [address] [place] [address], [address], [phone], Provider Name:Matt sam, 07/16/2026 02:30:00 PM, [address] [place] [address], [address], [phone], Progress Notes * Eulalia CALIXTO ADOB:[birth year] (64 yo F)Acc No.[id number]:07/12/2025 Progress Notes Patient: Eulalia TANG Provider: Dino Gomes MD :1960 A ge:64 Y S ex:Female Date:07/12/2025 Address:[address] [place] [address], [phone] Subjective: * Chief Complaints: * A NNUAL EXAM * HPI: D epression Screening: PHQ-9 L [...] PHQ-9 found negative result, no follow-up needed. C ommunication Needs: Communication Needs D oes [...] needed? Check all that apply: N one. S ymptom(s): patient is a 64 yo female here for annual visit with review of recent labs and follow up of chronic issues. * ROS: G eneral/Constitutional: Change in appetite d enies. C hills d enies. F ever d enies. O phthalmologic: Blurred vision d enies. D ischarge d enies. P ain d enies. E NT: Decreased hearing d enies. S ore throat d enies.?Swollen glands d enies. E ndocrine: Cold intolerance [...] U rinary incontinence D enies. M usculoskeletal: Painful joints d enies. W eakness d enies. ? S kin: Dry skin d enies. I [...] unemployed. Others at home: none. Pets: none. * Medications: T akingmethIMAzole 10 MG Tablet 1 tab Orally Once a day Medication List reviewed and reconciled with the patientTaking methIMAzole 10 MG Tablet 1 tab Orally Once a day Medication List reviewed and reconciled with the patient * Allergies: b actrim: rashpenicillin: hiveslevaquin: itchyerythromycin: itchytetracycline: itchykeflex: itchyDoxycycline: itchyyes[Allergies Verified] Objective: * Vitals: H t: 61, Wt: 116, BMI:21.92, BP:164/90, Repeat BP:130/90, Wt-k.62. weight is down 11 pounds since 07-10-24. * P ast Orders: L ab:Hemoglobin A1c (Order Date - 07/05/2025) (Collection Date & Time - 07/05/2025 08:00 AM) Value Reference Range Hemoglobin A1c % 5.8 <6.0 - % Estimated Average Glucose 120 - mg/dL L ab:TSH reflex Free T4 (Order Date - 07/05/2025) (Collection Date & Time - 07/05/2025 08:00 AM) Value Reference Range TSH reflex Free T4 0.69 0.32-4.0 - uIU/mL L ab:UA ClnCatch+Micro w/rflx Cult (Order Date - 07/05/2025) (Collection Date & Time - 07/05/2025 08:00 AM) Value Reference Range Color Urine Yellow - Appearance Urine Clear - PH 6.5 5.0-9.0 - Glucose Urine UA Negative Negative - mg/dL Urine Blood Negative Negative - Specific [place] - Urine 1.020 1.005-1.025 - Urine Protein Negative Neg-Trace - mg/dL Urine Ketones Negative Negative - mg/dL Nitrite Urine Negative Negative - Leukocyte Esterase Urine Negative Negative - RBC Urine 0-2 0-2 - /HPF WBC Urine 0-5 0-5 - /HPF Squamous Epithelial Cell Urine 0-2 0-2 - /HP F Bacteria Urine None Seen None Seen - Hyaline Casts Urine 0-2 0-2 - /LPF L ab:Comprehensive Met. Panel (Order Date - 07/05/2025) (Collection Date & Time - 07/05/2025 08:00 AM) Value Reference Range Sodium 145 135-145 - mmol/L Bilirubin Total 0.8 0.0-1.0 - mg/dL Aspartate Amino Transferase 25 5-31 - U/L Alanine Aminotransferase 12 0-31 - U/L Total Protein 6.9 6.5-8.0 - g/dL Albumin Level 4.3 3.5-5.0 - g/dL Alkaline Phosphatase 85 39-117 - U/L Potassium 3.8 3.3-5.1 - mmol/L Chloride 109 H 96-108 - mmol/L Carbon Dioxide 31 H 22-29 - mmol/L Anion Gap 9 L 12-20 - Blood Urea Nitrogen 19 H 9-16 - mg/dL Creatinine 0.92 0.5-1.4 - mg/dL Estimated Glomerular Filt Rate > 60 - Glucose Random 92 60-115 - mg/dL Calcium 9.5 8.4-10.2 - mg/dL L ab:Complete Blood Count Auto Diff (Order Date - 07/05/2025) (Collection Date & Time - 07/05/2025 08:00 AM) Value Reference Range White Blood Count 5.6 4.8-10.8 - X10*3/uL Red Blood Count 4.98 4.20-5.50 - X10*6/uL Hemoglobin 15.0 12.0-16.0 - g/dl Hematocrit 44.6 37.0-47.0 - % Mean Corpuscular Volume 89.6 80.0-98.0 - fL Mean Corpuscular Hemoglobin 30.1 27.0-33.0 - pg Mean Corpuscular HGB Conc 33.6 31.0-35.0 - g/ dl Red Cell Distribution Width 13.4 11.0-16.0 - % Platelet Count 226 160-400 - X10*3/uL Mean Platelet Volume 10.1 9.4-12.3 - fL Neutrophils Percent Auto 59.4 45-73 - % Imm Gran Pct Auto 0.4 0.0-0.4 - % Lymphocytes Percent Auto 26.6 20-40 - % Monocytes Percent Auto 9.3 2-11 - % Eosinophils Percent Auto 3.6 0-4 - % Basophils Percent Auto 0.7 0-2 - % NRBC Pct Auto 0.0 0.0-0.2 - /100WBC Neutrophils Absolute Auto 3.3 2.0-8.3 - x10* 3/uL Imm Gran Abs Auto 0.02 0.00-0.03 - X10*3/uL Lymphocytes Absolute Auto 1.5 1.2-4.9 - X10* 3/uL Monocytes Absolute Auto 0.5 0.1-1.2 - X10*3/ uL Eosinophils Absolute Auto 0.2 0.0-0.4 - X10* 3/uL Basophils Absolute Auto 0.0 0.0-0.2 - X10*3/ uL NRBC Abs Auto 0.000 0.0-0.012 - X10*3/uL L ab:Lipid Panel (Order Date - 07/05/2025) (Collection Date & Time - 07/05/2025 08:00 AM) Value Reference Range Triglycerides 66 <150 - mg/dL Cholesterol 224 H <200 - mg/dL LDL Cholesterol Calculated 132 H <100 - mg/dL HDL Cholesterol 79 >40 - mg/dL * Examination: G eneral Examination: GENERAL APPEARANCE: w ell developed, well nourished, in no acute distress. HEAD: n ormocephalic, atraumatic. EYES: p upils equal, round, reactive to light and accommodation, sclera non-icteric. EARS: n ormal. ORAL CAVITY: m ucosa moist. THROAT: c lear. NECK/THYROID: n muu supple, full range of motion, no cervical lymphadenopathy, no bruits. SKIN: w arm and dry, no suspicious lesions. HEART: r egular rate and rhythm, S1, S2 normal, no murmurs.? LUNGS: c lear to auscultation bilaterally. BREASTS: N o mass, no lump. ABDOMEN: s oft, nontender, nondistended, bowel sounds present, normal, no organomegaly , no masses palpable. RECTAL EXAM: n o masses palpable, stool guaiac negative.? FEMALE GENITOURINARY: d one by bread panner. EXTREMITIES: n o clubbing, cyanosis, or edema. NEUROLOGIC: n onfocal, motor strength normal upper and lower extremities, sensory exam intact. Assessment: * Assessment: 1. A nnual physical exam - Z00.00 (Primary) 2 . B orderline hypertension - R03.0 Plan: * Treatment: * Immunizations: Fluarix Quadrivalent - 150 (Not administered - Refused: Patient decision) * Procedure Codes: * Preventive Medicine: Immunizations: I nfluenza H ave you had a flu shot since the most recent June 18? N o patient refused at visit today. * * Sign off status: Completed true * Provider: Dino Gomes MD Date: 0 07/12/2025 Generated for Julito waters/Skylar/Brookssmitting on: 1 11/27/2024 10:11 PM EST History and Physical Notes * HPI (History of Present Illness) Category Sub-Category Detail Notes Category Not es Symptom(s) patient is a 64 yo female here for annual visit with review of recent labs and follow up of chronic issues Depression Screening PHQ-9 Little inte rest or pleasure in doing things: Not at all Feeling down, depressed, or hopeless: No t [...] Total Score: 0 Interpretation and Intervention Depression Joshe damian Findings: Negative Follow-Up for Depression: : review [...] EXTREMITIES: no clubbing, cyanosi s, or edema BREASTS: No mass, no lump RECTAL EXAM: no masses palpable, stool guaiac negative FEMALE GENITOURINARY: done by bread panner ORAL CAVITY: mucosa moist
--- NOTE | 2025-09-26 14:29 | MHC.OFFVIS ---
Vital Signs 09/26/25 14:30 Height 5 ft Weight 115 lb 8.356 oz BMI 22.6 BP 134/92 H Blood Pressure Location Rt brachial Position Sitting Pulse 70 Pulse Source Pulse Oximeter Pulse Oximetry (%) 97 Oxygen Delivery Method Room Air Intake Visit Reasons: Hyperthyroidism Intake Note: Patient present today for Hyperthyroidism follow up visit. Utilities Ground Worker Required: No Accompanied by: Spouse Allergies cephalexin Allergy (Unknown, Verified 09/26/25 14:30) itchy doxycycline (DOXYCYCLINE) Allergy (Unknown, Verified 09/26/25 14:30) ?RXN- TESTED + erythromycin base (ERYTHROMYCIN BASE) Allergy (Unknown, Verified 09/26/25 14:30) ITCHY HIVES levofloxacin (From LEVAQUIN) Allergy (Unknown, Verified 09/26/25 14:30) ITCH HIVES penicillin V Allergy (Unknown, Verified 09/26/25 14:30) unknown Penicillins (PENICILLINS) Allergy (Unknown, Verified 09/26/25 14:30) + WITH ALLERGY TESTING strawberry (STRAWBERRY) Allergy (Unknown, Verified 09/26/25 14:30) ITCHY - HIVES Sulfa (Sulfonamide Antibiotics) (SULFA(SULFONAMIDE ANTIBIOTICS)) Allergy (Unknown, Verified 09/26/25 14:30) RASH tetracycline (TETRACYCLINE) Allergy (Unknown, Verified 09/26/25 14:30) TESTED + WITH ALLERGY WORK - UP Doxycycline (Rosacea) Allergy (Unknown, Uncoded 09/26/25 14:30) itchy Erythromycin Allergy (Unknown, Uncoded 09/26/25 14:30) itchy Medication List - Last Reconciled 09/26/25 by Dada Simmons MD methimazole 10 mg PO DAILY methimazole 2.5 mg (1/2 x 5 mg) PO DAILY multivitamin 1 tab PO DAILY vitamin E mixed units PO HPI Comments Details: This 65-year-old white female previously seen by myself for hyperthyroidism due to Graves disease. Currently on methimazole 12.5 mg mg q.d. no symptoms of hyperthyroidism or hypothyroidism. Thyroid ultrasound showed a subcentimeter left midpole nodule Was also diagnosed by with low bone mass on DEXA. Unclear if secondary workup was done. FRAX indicates low risk of fracture of hip and major fracture The patient is a 64-year-old female presenting with Graves' disease management. She has been on methimazole 10 mg, which has kept her thyroid levels stable, though the TSH is slightly low at 0.31. The patient reports a history of fluctuating thyroid levels and has experienced heart palpitations and shakiness. The patient also has a history of osteopenia, identified through a bone density test. The risk of fracture is considered low, and she has been advised to take calcium and vitamin D supplements. - Methimazole 10 mg for Graves' disease, maintaining stable thyroid levels. TRAB antibodies are positive - Calcium and vitamin D supplements for osteopenia. [facility] Medical History (Updated 05/22/25 @ 10:39 by Dada Simmons MD) Thyroid nodule Hyperthyroidism Light sensitivity Migraine headache Graves disease Surgical History Tubal ligation status Kegley teeth extracted Hx of appendectomy Family History Sister Endometrial cancer Mother Lung cancer Social History Household Members: Spouse Housing: House Alcohol intake: never Patient Tobacco Use Status: Never used Tobacco Current occupational status: unemployed Sexual orientation: Straight/Heterosexual Gender identity: Female Female Reproductive History Menstrual Age of Menarche: 9 Physical Exam Vital Signs: BMI result Body Mass Index 22.6 Assessment & Plan Assessment & Plan (1) Hyperthyroidism: Code(s): E05.90 - Thyrotoxicosis, unspecified without thyrotoxic crisis or storm Category: Medical Plan: This is a 65-year-old female with a history of mild hyperthyroidism possibly due to Graves disease. She appears to be clinically and biochemically euthyroid On 12.5 mg of methimazole . TRAB antibodies are positive Plan is to continue the current management. Once again we will talk to the patient about definitive therapy with either radioactive iodine or surgery or continuation of anti-thyroid medication. The patient is opting to stay on the methimazole for now. She does have an appointment with Dr. Jung next several months to evaluate the thyroid nodule (2) Thyroid nodule: Code(s): E04.1 - Nontoxic single thyroid nodule Category: Medical Plan Subcentimeter thyroid nodule. We will repeat thyroid ultrasound. If any significant changes, we will send to Dr. Jung for thyroid ultrasound Coding Level of Care Code Est Pt Level 3 (60995) Diagnoses Hyperthyroidism E05.90 Thyroid nodule E04.1
[2025-09-26 14:30] VITALS: BP 134/92; PULSE 70; O2SAT 97; BMI 22.6
--- OUTSIDE RECORDS SUMMARY | 2025-09-26 22:12 | XMS_ITS | Patient Health Record ---
Author Organization Matt Gomes MD Address [address] [place], [place] [id number] Care Team Providers Care Buckle Sorter Name Role Phone Matt Gomes Primary Care [...] ff Reviewed date:07/05/2025 12:21:51 PM Interpretation: Performing Lab:[facility], [address] [place] [phone] Notes/Report: White Blood Count 5.6 4.8-10.8 X10*3/uL [...] Panel Reviewed date:07/05/2025 12:18:54 PM Interpretation: Performing Lab:[facility], [address] [place] [phone] Notes/Report: Triglycerides 66 <150 mg/dL Desirable Triglyceride: [...] T4 Reviewed date:07/05/2025 12:14:41 PM Interpretation: Performing Lab:[address] [phone] Notes/Report: TSH reflex Free T4 0.69 0.32-4.0 uIU/mL Hemoglobin A1c Reviewed date:07/05/2025 12:14:50 PM Interpretation: Performing Lab:[facility], [address] [place] [phone] Notes/Report: Hemoglobin A1c % 5.8 <6.0 % [...] average glucose, using the formula of the T4Q-Qcprcyp Average Glucose study (ADAG), Diabetes Care, Vol.31,#8, May. 2007 UA ClnCatch+Micro w/rflx Cul t Reviewed date:07/05/2025 12:34:14 PM Interpretation: Performing Lab:[address] [address] Notes/Report: Urine, Clean Catch Color Urine Yellow Appearance Urine Clear PH 6.5 5.0-9.0 Glucose Urine UA Negative Negative mg/dL Urine Blood Negative Negative Specific Holt - Urine 1.020 1.005-1.025 Urine Protein Negative Neg-Trace mg/dL Urine Ketones Negative Negative mg/dL Nitrite Urine Negative Negative Leukocyte Esterase Urine Negative Negative RBC Urine 0-2 0-2 /HPF WBC Urine 0-5 0-5 /HPF Squamous Epithelial Cell Urine 0-2 0-2 /HPF Bacteria Urine None Seen None Seen Hyaline Casts Urine 0-2 0-2 /LPF Pap Smear Reviewed date:03/30/2025 12:56:45 PM Interpretation: Performing Lab:[facility], [address] [place] [address] Notes/Report: --- Name: Eulalia Brock Age/Sex: 64/F : 1960 Unit#: [id number] Attend Dr: Viral Thacker MD Re03/27/25 Status : DEP REF Location: [facility] Disch: --- SPEC : [id number] RECD : 03/28/25 STATUS: ELANA GILES NUM: [id number] EDWARD: 03/27/25-1358 [facility] DR: Viral Thacker MD ENTERED: 03/28/25 41 SP TYPE: Pap [facility] DR: Matt Gomes MD ORDERED: Pap Smear [...] and HPV testing will be performed at [facility] (CLIA #[id number]), [address] [place] [address]. Testing for H PV was performed using [...] detected. All professional services are performed by [facility] ([address] [place] [address]; P h: [phone]; CLIA #[id number]). The PAP Test is a screening procedure with the inherent possibility of both false negative and false positive results. Results should be interpreted in the context of historic and current clinical findings. Reliability of the PAP Test is enhanced by performing the test on a regular repetit patrick basis. CONTINUED ON NEXT PAGE --- Name: Eulalia Brock Age/Sex: 64/F : 1960 Unit#: [id number] Attend Dr: Viral Thacker MD Re03/27/25 Status : DEP REF Location: HO.LNP Disch: --- SPEC : [id number] RECD : 03/28/25 STATUS: ELANA GILES NUM: [id number] EDWARD: 03/27/25-1358 [facility] DR: Viral Thacker MD ENTERED: 03/28/25-08 41 SP TYPE: Pap Smr OTHR DR: Matt Gomes MD ORDERED: Pap Smear Copies To: Matt Gomes MD [facility] [address] [place] [address] Viral Thacker MD [facility] [address] [place] [address] --- Signed (signature on file) ALEJANDRO Álvarez (ASCP) 03/30/25 1041 --- END OF REPORT HPV High risk Reviewed date:04/02/2025 12:43:41 PM Interpretation: Performing Lab:[facility], [address] [place] [phone] Notes/Report: HPV High Risk Negative Negative HPV Genotype 16 Negative Negative HPV Genotype 18 Negative Negative HPV testing performed at [facility] (CLIA #[id number]), [address] [place] [address]. Testing for HPV was performed using the [...] date:04/27/2025 04:42:37 PM Interpretation: Performing Lab: Notes/Report: [facility] [address] [place] [address] Mammography Report Signed Patient: Eulalia Brock MR#: [id number] 889 : 1960 Acct:[id number] Age/Sex: 64 / F ADM Date: 04/27/25 Loc: GABEO Attending Dr: Viral Thacker MD Ordering Physician: Viral Thacker MD Results: Date of Service: 04/27/25 Follow Up: Procedure(s): XR DEXA axial skeleton Accession Number(s): [id number] cc: Matt Gomes MD; Viral Thacker MD EXAMINATION: DXA BONE DENSITY AXIAL HISTORY: Z78.0 - Asymptomatic menopausal state TECHNIQUE: Prime Focus Dual energy absorptiometry (DEXA) of the lumbar [...] is a trademark of the [employer]'s [employer] for Metabolic Bone Disease, a World Health Organization (WHO) Collaborating Center. Electronically signed by: Dada Mcclellan MD 04/27/2025 12:58 PM EDT RP Dictated By: Dada Mcclellan MD Signed By: <Electronically signed by Dada Mcclellan MD in OV> 04/27/25 1258 DD/ 1115 TD/TT: 04/27/25 1145 Manager Shop: [place] [facility]'s [address] [place] [address] Mammography Report Signed Patient: Everett Brock MR#: [id number] 889 : 1960 Acct:[id number] Age/Sex: 64 / F ADM Date: 04/27/25 Loc: HO.MAMMO Attending Dr: Viral Thacker MD Ordering Physician: Viral Thacker MD Results: Date of Service: 04/27/25 Follow Up: Procedure(s): XR DEX A axial skeleton Accession Number(s): [id number] cc: Matt Gomes MD; Viral Thacker MD EXAMINATION: DXA BON E DENSITY AXIAL HISTORY: Z78.0 - Asymptomatic menopausal state TECHNIQUE: Prime Focus Dual energy absorptiometry (DEXA) of the lumbar [...] is a trademark of the [employer] Metabolic Bone Disease, a World Health Organization (WHO) Collaborating Center. Electronically arleen d by: Dada Mcclellan MD 04/27/2025 12:58 PM EDT RP Dictated By: Dada Mcclellan MD Signed By: <Electronically signed by Dada Mcclellan MD in OV> 04/27/25 1258 DD/ 1115 TD/TT: 04/27/25 1145 Manager Shop: Marianna Lanier. Panel Reviewed date:07/05/2025 12:17:06 PM Interpretation: Performing Lab:[facility], [address] [place] [phone] Notes/Report: Sodium 145 135-145 mmol/L Potassium 3.8 [...] Gold Reviewed date:07/05/2025 12:14:32 PM Interpretation: Performing Lab:[facility], [address] [place] [phone] Notes/Report: [facility] Gold See Note Specimen held untested for 24 hours; Call to request Chemistry testing. US thyroid Reviewed date:07/17/2025 05:17:42 PM Interpretation: Performing Lab: Notes/Report: [address] [address] Ultrasound Report Signed Patient: Eulalia Brock MR#: [id number] 889 : 1960 Acct:[id number] Age/Sex: 64 / F ADM Date: 07/17/25 Loc: HO.US Attending Dr: Dada Simmons MD Ordering Physician: Dada Simmons MD Date of Service: 07/17/25 Procedure(s): US thyroid Accession Number(s): [id number] cc: Matt Gomes MD; Dada Simmons MD [...] than or equal to 1 cm: 1. Retention Representative nodules are described as follows: 1. Location: [...] 07/17/25 1405 DD/ 1334 TD/TT: 07/17/25 1344 Manager Shop: [place] [address] Ultrasound Report Signed Patient: Everett Brock MR#: [id number] 889 : 1960 Acct:[id number] Age/Sex: 64 / F ADM Date: 07/17/25 Loc: HO.US Attending Dr: Dada Simmons MD Ordering Physician: Dada Simmons MD Date of Service: 07/17/25 Procedure(s): US thyroid Accession Number(s): [id number] cc: Matt Gomes MD; Dada Simmons MD [...] than or equal to 1 cm: 1. Retention Representative nodul es are described as follows: 1. [...] 07/17/25 1405 DD/ 1334 TD/TT: 07/17/25 1344 Manager Shop: Reason For Referral No Information Medications Medication [...] Problem Status W/U Status Risk Notes Problem 897860322 Lumbar disc disease (M51.9) Active confirmed Problem 150933335 Rosacea (L71.9) Active confirmed Problem 06175374 Labile hypertension (I10) Active confirmed Problem 713618717 Graves disease (E05.00) Active confirmed Problem 478758789 Elevated cholesterol with elevated triglycerides (E78.2) Active confirmed Problem 234665389 Menopause (Z78.0) Active confirmed Problem 841897370 Schatzki's ring (K22.2) Active confirmed Problem 96713219 Elevated blood sugar (R73.9) Active confirmed Problem 69816307 Sciatica of righ t side (M54.31) Active confirmed Problem 00527406 Blepharitis (H01.009) Active confirmed Problem 789470570 Hordeolum externum of right upper eyelid (H00.011) Active confirmed Problem 28344232 Bilateral carpal tunnel syndrome (G56.03) Active confirmed Problem 78697556 REEMA (obstructive sleep apnea) (G47.33) Active confirmed Problem Osteopenia (disorder) (764746607) Osteopenia determined by x-ray (M85.80) Active confirmed [...] Location Date Provider Diagnosis Matt Gomes MD [address] [place] [address] Drive [address] [place] [phone] 07/05/2025 Matt Gomes Blood tests for routine general physical examination Z00.00 ; Labile hypertension I10 ; Graves disease E05.00 ; Elevated cholesterol with elevated triglycerides E78.2 and Elevated blood sugar R73.9 Matt Gomes MD [address] [place] [address] [phone] 07/12/2025 Matt Gomes Annual physical exam Z00.00 and Borderline hypertension R03.0 Matt Gomes MD [address] [place] [address] [address] [place] [phone] 04/30/2025 Matt Gomes Assessments Encounter Date Diagnosis (ICD Code) Assessment Notes Treatment Notes Treatment Clinical Notes Section Notes 07/05/2025 Blood tests for routine general physical examination (ICD-10 - Z00.00) 07/12/2025 Annual physical exam (ICD-10 - Z00.00) 07/12/2025 Borderline hypertension (ICD-10 - R03.0) will check again in 3 months before 07/05/2025 Labile hypertension (ICD-10 - I10) 07/05/2025 Graves disease (ICD-10 - E05.00) 07/05/2025 Elevated cholesterol with elevated triglycerides (ICD-10 - E78.2) 07/05/2025 Elevated blood sugar (ICD-10 - R73.9) Plan Of Treatment Pending Test Test Name Order Date Electrocardiogram (EKG) 04/24/2016 XR GI SERIES 09/29/2022 Comprehensive Girard. Panel Fast XR foot RT 2V 03/10/2021 Future Test Test Name Order Date BONE DENSITY DEXA 09/03/2021 Next Appt Details Provider Name:Matt Flannery ier, 10/04/2025 02:00:00 PM, [address], [address], [place], [phone], Provider Name:Matt Flannery ier, 07/09/2026 07:00:00 AM, [address], [address], [place], [place], [id number], Provider Name:Matt Flannery ier, 07/16/2026 02:30:00 PM, [address], [address], [place], [phone], Insurance Providers Payer Name Payer Address Payer Phone Subscriber Number Group Number Insured Name Patient Relationship to Insured Coverage Start Date Coverage End Date [employer] [address] [place] [address] [id number] Eulalia Brock Self - patient is the insured Medical (General) History Medical History History ICD Code 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 05/11/14, mammo refused 2020 still refusi ng 05/11/14 to schedule colonosc opy. is going to try again; colonoscopy done 10/01/17 w/Dr. Camarena - repeat 10 years IS ABLE TO TOLERATE MACROBID AND CIPRO is going jul 2017 Do yearly TSH for Graves Disease
--- OUTSIDE RECORDS SUMMARY | 2025-09-26 22:13 | XMS_ITS | Patient Health Record ---
Author Organization [facility] Address [address] [place] [address] Care Team Providers Care Rental Agent Name Role Phone Matt Gomes MD Primary Care Provider Dada Mendez [phone] Allergies Allergen (clinical drug ingredient) Drug/Non Drug Allergy documented on EMR Reaction Allergy Type Onset Date Status cephalexin Cephalexin Unknown Drug Allergy Activ e doxycycline Doxycycline Hyclate Unknown Drug Allergy Active erythromycin Erythromycin Unknown Drug Allergy A ctive Levaquin Unknown Drug Allergy Active penicillamine Penicillamine Unknown Drug Allergy Active Sulfacet-R Unknown Drug Allergy Active tetracycline Tetracycline HCl Unknown Drug Allergy Active Reason For Referral No Information Medications Medication SIG (Take, Route, Fr equency, Duration) Notes Start Date End Date Status Advil prn Active Loratadine prn Active Fish Oil PRN Active Excedrin Migraine prn Ac tive Multivitamin Active Calcium PRN Active Social History Social History Additional Details Category Social Info Options Details Miscellaneous: Marital status: Occupation: Home Section Notes: Nonsmoker; no alcohol Nonsmoker; no alcohol Problems Problem Type SNOMED Code ICD Code Onset Dates Problem Status W/U Status Risk Notes Problem Screening for malignant neoplasm of colon (582333456) Encounter for screening for malignant neoplasm of colon (Z12.11) Active confirmed Problem Dysphagia (08340376) Pharyngoesophageal dysphagia (R13.14) Active confirmed Plan Of Treatment Future Test Test Name Order Date COLONOSCOPY 10/26/2012 UPPER GI ENDOSCOPY 08/12/2017 COLONOSCOPY 08/12/2017 Insurance Providers Payer Name Payer Address Payer Phone Subscriber Number Group Number Insured Name Patient Relationship to Insured Coverage Start Date Coverage End Date [facility] [address] [place], [place] [id number] KAEL CALIXTO Self - patient is the insured Medical (General) History Medical History History ICD Code Colonosocpy 12-11-2002-negative except in t/ext hemorrhoids Graves' Disease Premature heartbeat--of no clinical sign ificance-on no Rx for it Denies RI,DM,CVA,Lung disease,renal dise ase Headaches from arthritis in neck Leg pain-has difficulty walking Surgical History Surgery Date(Month/Year) Appendectomy Johnny-D&C
--- OUTSIDE RECORDS SUMMARY | 2025-09-26 22:13 | XMS_ITS | Patient Health Record ---
Author Organization [facility]ogg Address [address] [place] [address] Care Team Providers Care Medical Typist Name Role Phone Mireya AKERS, Matt Primary Care Provider Chance Thompson Unavailable [phone] Allergies Allergen (clinical drug ingredient) Drug/Non Drug [...] Calcium 1 tab Oral Active vitamin Active [place] 3 1000 MG 1 capsule Orally Onc [...] Status W/U Status Risk Notes Problem Onychomycosis (499101444) Onychomycosis (110.1) Active confirmed Just starting Topical tx NOW Problem Pain in limb (11016786) Pain in Limb (729.5) Active confirmed Plan Of Treatment Pending Test Test Name Order Date [id number] NAIL, 1-5 06/04/2014 [id number] NAIL, 1-5 09/03/2014 Insurance Providers Payer Name Payer Address Payer Phone Subscriber Number Group Number Insured Name Patient Relationship to Insured Coverage Start Date Coverage End Date [facility] [address] [place] [address] [id number] DINESH CALIXTO Spouse - patient is the spouse of the insured Medical (General) History Medical History History ICD Code Anemia Back,Hip,and Knee pain Migraines Eczema Thyroid disorder Chicken pox Measles Mumps Transfusions Surgical History Surgery Date(Month/Year) appendectomy D&C
== END 2025-09-26 15:08 | disposition home or self-care (01) ==
LOC: HO.ENCR 14:13
PROVIDERS: PCP Internal Medicine; Visit Provider Internal Medicine Endocrinology, Diabetes & Metabolism
DX: E05.90 Thyrotoxicosis, unspecified without thyrotoxic crisis or storm (principal); E04.1 Nontoxic single thyroid nodule
CPT/HCPCS: 99213

== ENCOUNTER → 2025-09-26 14:13 | Outpatient (BNVA) | payer MEDICARE, SELFPAY | PROVIDERS: PCP Internal Medicine; Visit Provider Internal Medicine Endocrinology, Diabetes & Metabolism | DX: E04.1 Nontoxic single thyroid nodule (principal); E05.90 Thyrotoxicosis, unspecified without thyrotoxic crisis or storm; Z79.899 Other long term (current) drug therapy | CPT/HCPCS: 99212 ==